=== PATIENT | male | born 1940 | race Caucasian/White ===

== ENCOUNTER 2022-08-01 15:43 | Emergency (ER) | payer MEDICARE, SELFPAY ==
--- NOTE | ~2022-08-01 | CT_ITS ---
EXAMINATION: CT brain wo con DATE: 08/01/2022 17:12 INDICATION: Head injury. TECHNIQUE: Computed tomography (CT) of the head was performed without intravenous contrast. The mA wa s adjusted according to patient size. Iterative reconstruction technique was employed. The dose-lengt h product was 605.33 mGy-cm. COMPARISON: None FINDINGS: There is no intracranial hemorrhage, acute infarction, or abnormal intracranial mass lesion . The ventricles are normal in size. There are likely changes of left ocular lens replacement surgery . There is mild mucosal thickening in the paranasal sinuses. The mastoid air cells are normal. There is a lipoma in left frontal lateral scalp. IMPRESSION: 1. Normal brain. Reviewed, dictated and finalized at location A. IMPRESSION: 1. Normal brain.
--- NOTE | ~2022-08-01 | CT_ITS ---
EXAMINATION: CT cervical spine wo con DATE: 08/01/2022 17:12 INDICATION: Head injury. TECHNIQUE: Computed tomography (CT) of the cervical spine was performed without intravenous contrast. Automated exposure control and iterative reconstruction technique were employed. The dose-length pro duct was 453.51 mGy-cm. COMPARISON: None FINDINGS: There is 3 degrees dextrocurvature of cervical spine. Vertebral body heights are normal. Th ere is moderately decreased disc height at C3-C4, C4-C5, and C5-C6 and severely decreased disc height at C6-C7. The following disc levels are specifically discussed: C2-C3: There is mild bilateral uncovertebral joint osteoarthritis. There is severe bilateral facet jacqueline int osteoarthritis. There is mild bilateral neural foraminal stenosis. There is no central canal sten osis. C3-C4: There is severe bilateral uncovertebral joint osteoarthritis. There is severe right and modera te left facet joint osteoarthritis. There is mild bilateral neural foraminal stenosis. There is mild central canal stenosis. C4-C5: There is mild right and severe left uncovertebral joint osteoarthritis. There is severe bilate ral facet joint osteoarthritis. There is mild right and moderate left neural foraminal stenosis. Ther e is mild central canal stenosis. C5-C6: There is moderate right and severe left uncovertebral joint osteoarthritis. There is moderate bilateral facet joint osteoarthritis. There is mild left neural foraminal stenosis. There is mild brii tral canal stenosis. C6-C7: There is severe bilateral uncovertebral joint osteoarthritis. There is mild bilateral facet jacqueline int osteoarthritis. There is mild bilateral neural foraminal stenosis. There is mild central canal st enosis. C7-T1: There is no uncovertebral joint osteoarthritis. There is moderate right and severe left facet joint osteoarthritis. There is mild bilateral neural foraminal stenosis. There is no central canal st enosis. IMPRESSION: 1. No fracture. 2. Severe cervical spondylosis. Reviewed, dictated and finalized at location A.
--- NOTE | ~2022-08-01 | XR_ITS ---
EXAMINATION: XR shoulder LT min 2V INDICATION: Left shoulder pain TECHNIQUE: Four views of the left shoulder are submitted. COMPARISON: 01/22/2014 FINDINGS: There is a questionable subtle lucency and cortical defect of the coracoid process Glenohum eral and acromioclavicular joint spaces are normal. Soft tissues are unremarkable. A subtle oval luce ncy with sclerotic margin along the lateral body of the scapula has a stable appearance since 2013, c onsistent with a benign finding. IMPRESSION: 1. Possible nondisplaced fracture of the coracoid process. Reviewed, dictated and finalized at location B.
[2022-08-01 15:59] VITALS: BP 127/67; PULSE 66; RESP 17; TEMP 36.5; O2SAT 99
--- NOTE | 2022-08-01 16:49 | ED.FALL ---
HPI - Fall General Chief Complaint: Fall Stated Complaint: fall Time Seen by Provider: 08/01/22 16:02 History of Present Illness HPI Narrative: 82-year-old male presents to the emergency room for evaluation of injury sustained in a fall earlier today. Patient states that he was on a stepladder attempting to remove ceiling tiles, when he stepped backward missing a step and striking his shoulder on the ground. Patient also states that he bumped his head. Denies any LOC or altered mental status. States the majority of his pain is to his left scapula, he is able to move his shoulder without difficulty. Related Data Allergies Allergy/AdvReac Type Severity Reaction Status Date / Time No Known Allergies Allergy Unknown Unverified 01/22/14 13:13 Review of Systems Review of Systems: CONSTITUTIONAL: Denies fever, chills, or sweats. EYES: Denies visual changes, redness, or discharge. ENT: Denies rhinorrhea, congestion, sore throat, or otalgia. CARDIOVASCULAR: Denies chest pain, palpitations, or edema. RESPIRATORY: Denies cough or dyspnea. GASTROINTESTINAL: Denies abdominal pain, nausea, vomiting, or diarrhea. GENITOURINARY: Denies dysuria or hematuria. SKIN: Denies rash or itching. MUSCULOSKELETAL: Reports left shoulder pain NEUROLOGIC: Denies headache, numbness, dizziness, or weakness. PSYCHIATRIC: Denies anxiety or depression. Exam Narrative: GENERAL: Well-appearing, well-nourished, no physical limitations, and in no acute distress. HEAD: Normocephalic, atraumatic. EYES: Conjunctivae normal, PERRLA and EOMI. CHEST: Clear to auscultation. No respiratory distress. No wheezes rales or rhonchi. HEART: Regular rate and rhythm. No murmur heard. Normal peripheral pulses. EXTREMITIES: Left shoulder: Point tenderness to the left scapula. Full range of motion in all lackey of movement, no bony abnormality, no swelling, no ecchymosis, neurovascular is intact distally SKIN: Warm, dry, no rash. No noted wounds NEURO: No focal deficits. Alert and oriented x3. MAEW. CN's II-XI intact bilaterally, normal gait PSYCH: Cooperative. Normal mood and affect. Course Vital Signs Vital signs: Vital Signs Temperature 36.5 C 08/01/22 15:59 Pulse Rate 66 08/01/22 15:59 Respiratory Rate 17 08/01/22 15:59 Blood Pressure 127/67 08/01/22 15:59 Pulse Oximetry 99 08/01/22 15:59 Oxygen Delivery Room Air 08/01/22 15:59 Temperature 36.5 C 08/01/22 15:59 Pulse Rate 66 08/01/22 15:59 Respiratory Rate 17 08/01/22 15:59 Blood Pressure 127/67 08/01/22 15:59 Pulse Oximetry 99 08/01/22 15:59 Oxygen Delivery Room Air 08/01/22 15:59 MDM - Fall Imaging Data Radiologist's impression: Impressions Head CT 08/01/22 17:13 IMPRESSION: 1. Normal brain. Cervical Spine CT 08/01/22 17:17 IMPRESSION: 1. No fracture. 2. Severe cervical spondylosis. Shoulder X-Ray 08/01/22 17:25 IMPRESSION: 1. Possible nondisplaced fracture of the coracoid process. Discharge Plan Discharge Clinical Impression: Fall, Head injury, Closed coracoid process fracture Patient Disposition: Home, Self-Care Condition: Stable Instructions: Antibiotic Form, Scapular Fracture (ED) Additional Instructions: May take Tylenol and ibuprofen as needed for pain. Wear sling for comfort. Follow-up with orthopedics in 10 to 14 days. Follow-up/Referrals: Stu Skinner MD [Physician] - PHYSICIAN NOT ON STAFF,NONSTAFF [Primary Care Provider] - Time of Disposition: 17:43
== END 2022-08-01 18:00 | disposition home or self-care (01) ==
PROVIDERS: Emergency Provider Nurse Practitioner Family
DX: S42.135A Nondisplaced fracture of coracoid process, left shoulder, initial encounter for closed fracture (principal); S09.90XA Unspecified injury of head, initial encounter; M47.812 Spondylosis without myelopathy or radiculopathy, cervical region; W11.XXXA Fall on and from ladder, initial encounter
CPT/HCPCS: 70450; 72125; 73030; 99284; A4565

== ENCOUNTER 2023-06-02 12:43 | Emergency (ER) | payer MEDICARE, SELFPAY ==
[2023-06-02] VITALS (20 sets, daily range): BP systolic 102–139; BP diastolic 55–66; PULSE 53–76; RESP 12–23; TEMP 36.7; O2SAT 97–100
--- NOTE | ~2023-06-02 | XR_ITS ---
EXAMINATION: XR chest 2V DATE: 06/02/2023 14:14 INDICATION: Transient alteration of awareness TECHNIQUE: AP and lateral views of the chest are obtained. COMPARISON: 01/22/2014 FINDINGS: The lungs are free of acute opacities. No pleural effusion or pneumothorax. The cardiomedia stinal silhouette is normal. There is mild thoracic spondylosis. Multiple healed right-sided rib frac tures are noted. 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 IMPRESSION: 1. No acute cardiopulmonary abnormality. Reviewed, dictated and finalized at location A.
--- NOTE | 2023-06-02 12:59 | ED.GENADULT ---
HPI - General Adult General Chief complaint: Syncope Stated complaint: near syncopy Time Seen by Provider: 06/02/23 12:51 History of Present Illness HPI narrative: Patient is an 83-year-old male who presents ER with near syncope. It occurred 2 times. The first time he had gone outside for about an hour and a half to set up the items he required to paint and outdoor [place]. While he was outside his was up on the ladder and he was holding it when he began to feel lightheaded. He then told her they needed to go inside and became lightheaded and laid himself down towards the ground. Paramedics were called but he refused. He then got up and went inside. He is feeling improved. He then drink some water and developed lightheadedness again and had some slight discomfort in his chest. He then had near syncope again. He did have some jerking in his right arm and some slurred speech but did not lose consciousness. He feels well at this time. Patient has history of coronary disease but no continued chest discomfort. He had no racing heart or slow heart rate. Poor p.o. intake today. Related Data Allergies Allergy/AdvReac Type Severity Reaction Status Date / Time No Known Allergies Allergy Unknown Unverified 06/02/23 12:53 Review of Systems Review of Systems: All systems reviewed & are unremarkable except as noted in HPI and below Constitutional: Constitutional: Reports chills, Reports fatigue and Denies fever(s) ENT: Denies nasal congestion and Denies sore throat Cardiovascular: Cardiovascular: Reports chest pain, Denies rapid heart rate, Denies radiating jaw, neck or arm pain and Denies slow heart rate Respiratory: Respiratory: Denies cough and Denies dyspnea Gastrointestinal: Gastrointestinal: Denies abdominal pain, Denies nausea and Denies vomiting Genitourinary: Genitourinary: Denies dysuria and Denies urinary frequency Neurologic: Reports syncope (Near), Denies headache(s), Denies focal weakness and Denies numbness PMFSH Past Medical History Medical History (Updated 06/02/23 @ 17:50 by Nehemias Deutsch MD) BPH (benign prostatic hyperplasia) Coronary artery disease Hyperlipidemia Hypertension Surgical History Surgical History (Updated 06/02/23 @ 17:50 by Nehemias Deutsch MD) History of percutaneous coronary intervention Exam Narrative: GENERAL: Well-appearing, well-nourished, and in no acute distress. HEAD: Normocephalic, atraumatic. ENT: Mucous membranes moist. NECK: Supple. CHEST: Clear to auscultation. No respiratory distress. HEART: Regular rate and rhythm. Normal peripheral pulses. ABDOMEN: Soft, nontender, nondistended. EXTREMITIES: Normal range of motion. No edema. SKIN: Warm, dry, no rash. NEURO: Alert and oriented x3. PSYCH: Normal mood and affect. Course Course Emergency Course: Patient resting comfortably. Troponin negative x2. Patient without orthostasis and up and ambulatory at baseline. His creatinine here is 1.7 and when checking his MyChart in the room he is at 1.5 on his most recent creatinine test last week. Encouraged avoidance of excessive heat and to increase hydration. Patient and verbalized understanding. Vital Signs Vital signs: Vital Signs Temperature 98.0 F 06/02/23 12:43 Pulse Rate 64 06/02/23 12:43 Respiratory Rate 20 06/02/23 12:43 Blood Pressure 112/66 06/02/23 12:43 Pulse Oximetry 98 06/02/23 12:43 Oxygen Delivery Room Air 06/02/23 12:43 Temperature 98.0 F 06/02/23 12:43 Pulse Rate 76 06/02/23 17:25 Respiratory Rate 13 06/02/23 16:01 Blood Pressure 112/65 06/02/23 17:25 Pulse Oximetry 98 06/02/23 16:01 Oxygen Delivery Room Air 06/02/23 12:51 Medical Decision Making Vital Signs Vital Signs: Vital Signs Temperature 98.0 F 06/02/23 12:43 Pulse Rate 64 06/02/23 12:43 Respiratory Rate 20 06/02/23 12:43 Blood Pressure 112/66 06/02/23 12:43 Pulse Oximetry 98 06/02/23 12:43
--- NOTE | 2023-06-02 13:07 | ECG_ITS ---
Measurements Intervals [place] Rate: 62 P: 37 WY: 193 QRS: 36 QRSD: 141 T: 49 QT: 434 QTc: 441 Interpretive Statements SINUS RHYTHM RIGHT BUNDLE BRANCH BLOCK [120+ ms QRS DURATION, UPRIGHT V1, 40+ ms S IN I/aVL/V4/V5/V6] NO PREVIOUS ECG AVAILABLE FOR COMPARISON Electronically Signed On 06-03-2023 11:08:46 CDT by George Cook M.D.
[2023-06-02] MEDS: SODIUM CHLORIDE 0.9% IV 1,000 ML 999 ML IV CONT (13:19)
[2023-06-02 13:33] LABS: Basophils Absolute Auto 0.1 K/mm3 (0.0-0.1); Basophils Percent Auto 0.6 % (0.2-1.2); Eosinophils Absolute Auto 0.4 K/mm3 (0-0.3); Eosinophils Percent Auto 5.6 % (0-4.4); Hematocrit 38.1 % (42.0-52.0); Hemoglobin 12.6 g/dL (14.0-18.0); Immature Granulocyte Absolute 0.02 K/mm3 (0.00-0.031); Immature Granulocyte Percent A 0.3 % (0-0.5); Immature Platelet Fraction Pct 7.3 % (0.9-11.2); Lymphocytes Absolute Auto 0.76 K/mm3 (0.9-3.2); Lymphocytes Percent Auto 9.8 % (18.3-44.2); Mean Corpuscular HGB Conc 33.1 g/dl (32-36); Mean Corpuscular Hemoglobin 33.2 pg (26-34); Mean Corpuscular Volume 100.3 fl (80-100); Mean Platelet Volume 11.8 fl (7.4-10.4); Monocytes Absolute Auto 0.6 K/mm3 (0.1-0.6); Monocytes Percent Auto 7.2 % (2.6-8.5); Neutrophils Absolute Auto 5.9 K/mm3 (1.3-6.7); Neutrophils Percent Auto 76.5 % (45.5-73.1); Platelet Count Result 126 k/mm3 (150-375); Red Cell Distribution Width 12.6 % (11.5-14.5); White Blood Count 7.7 K/mm3 (4.5-10.0)
[2023-06-02 13:39] LABS: INR 1.1; Prothrombin Time 15.2 Seconds (11.1-14.7)
[2023-06-02 13:40] LABS: Partial Thromboplastin Time 29.6 SECONDS (22.3-36.8)
[2023-06-02 13:42] LABS: Alanine Aminotransferase 27 U/L (6-50); Albumin Level 3.8 g/dL (3.5-5.1); Alkaline Phosphatase 49 U/L (38-126); Anion Gap 6 mmol/L (8-16); Aspartate Amino Transferase 30 U/L (17-59); Bilirubin,Total 1.3 mg/dL (0.2-1.3); Blood Urea Nitrogen 38 mg/dL (9-20); Calcium 9.1 mg/dL (8.4-10.2); Carbon Dioxide 25 mmol/L (22-30); Chloride 105 mmol/L (98-107); Estimated CRCL calculation 32 ml/min; Estimated Glomerular Filt Rate 39; Glucose 123 mg/dL (65-110); Potassium 4.3 mmol/L (3.4-5.0); Sodium 136 mmol/L (137-145)
[2023-06-02 13:54] LABS: Troponin I < 0.012 ng/mL (0.000-0.034)
[2023-06-02 16:58] LABS: Troponin I < 0.012 ng/mL (0.000-0.034)
== END 2023-06-02 18:00 | disposition home or self-care (01) ==
PROVIDERS: Emergency Provider Emergency Medicine
DX: T67.5XXA Heat exhaustion, unspecified, initial encounter (principal); R55 Syncope and collapse; I25.10 Atherosclerotic heart disease of native coronary artery without angina pectoris; I10 Essential (primary) hypertension; E78.5 Hyperlipidemia, unspecified; N40.0 Benign prostatic hyperplasia without lower urinary tract symptoms; X30.XXXA Exposure to excessive natural heat, initial encounter
CPT/HCPCS: 36415; 71046; 80053; 84484; 85025; 85055; 85610; 85730; 93005; 96360; 99284; J7030

== ENCOUNTER 2025-03-05 16:34 | Inpatient (IN) | payer MEDICARE, SELFPAY ==
[2025-03-05] VITALS (7 sets, daily range): BP systolic 111–134; BP diastolic 53–77; PULSE 71–89; RESP 16–18; TEMP 36.4–36.5; O2SAT 95–99; BMI 25.2
--- NOTE | ~2025-03-05 | XR_ITS ---
HISTORY: Pain/swelling TWIST FALL INJ X 1 DAY RIGHT LAT MALLEOLAR COMPARISON: None TECHNIQUE: 3 views of the right ankle were performed FINDINGS: No acute fracture or dislocation. Findings suggesting prior fracture deformity within the distal shaft of the right fibula for which cl inical correlation is needed. Lateral soft tissue swelling is noted. The ankle mortise is preserved. Bone mineralization is age-appropriate. IMPRESSION: Findings suggesting prior fracture deformity within the distal shaft of the right fibula for which clinical correlation is needed. No acute fracture deformity is identified. Reviewed, dictated and finalized at location A. IMPRESSION: Findings suggesting prior fracture deformity within the distal sha ft of the right fibula for which clinical correlation is needed. No acute fracture deformity is identified.
--- NOTE | ~2025-03-05 | CT_ITS ---
CT brain wo con Ordering provider: Isael Celeste MD History: 85 years Male with . head injury . Comparison: August 01, 2022 Technique: CT of the head without contrast. Radiation reduction technique utilized.The dose-length pr oduct was 605.33 mGy-cm. FINDINGS: BRAIN PARENCHYMA AND CSF SPACES: Mild leukoaraiosis and diffuse cortical atrophy. Mild atheromatous d isease. No midline shift, mass effect or hemorrhage. The brain parenchyma and CSF spaces are otherwi se normal. VISUALIZED PARANASAL SINUSES: Bilateral maxillary sinus disease is. Bilateral ethmoid sinus disease. Otherwise, Well aerated. MASTOIDS: Well aerated. BONES: The bones appear intact. SOFT TISSUES: Visualized nasopharynx is normal. Superficial soft tissues are normal. IMPRESSION: No acute intracranial findings. Reviewed, dictated and finalized at location A.
--- NOTE | ~2025-03-05 | XR_ITS ---
XR chest 1V portable Ordering provider: Isael Celeste MD History: 85 years Male with . syncope . Comparison: June 06, 2023 FINDINGS: MEDIASTINUM: The cardiac silhouette is not enlarged. LUNGS: No effusions or pneumothorax. Bibasilar opacification more on the right side suggestive of pneumonia versus atelectasis. Calcified granuloma in the left upper lobe unchanged. OTHER: No free air under the diaphragm. Degenerative spine. IMPRESSION: Bibasilar atelectasis versus pneumonia. Reviewed, dictated and finalized at location A.
--- OUTSIDE RECORDS SUMMARY | 2025-03-05 16:41 | XMS_ITS | Encounter Summary ---
Author Organization [facility] Healthcare Address [address] [place] [address] Care Team Providers Care Chain Testing Machine Operator Name Role Phone River Serrano MD Primary Care Provider [phone] Nehemias Carrillo MD Unavailable Kim Duong OT Unavailable Kayla Dye MD Unavailable [phone] Zaid Manjarrez MD PhD Unavailable [phone] Cheri Babin Unavailable [phone] Jaqueline Blake MD Unavailable Bandar Ugarte MD Unavailable [phone] Kerrie Reyna MD Unavailable [phone] Santa Saleem NP Unavailable [phone] Reason for Referral * Cardiology (Routine) - Authorized Specialty Diagnoses / Procedures Referred By Contac t Referred To Contact Diagnoses Shortness of breath Chronic coronary artery disease Procedures Transthoracic Echo (TTE) Complete W Doppler/CF Nehemias Carrillo MD [address] [address] Phone: tel: fax: [address] [phone] Referral ID Status Reason Start Date Expiration Date V isits Requested Visits Authorized [id number] Authorized 02/25/2025 03/27/2026 1 1 Reason for Visit * Reason Onset Date Comments Test Results 02/23/2025 Encounter Details Date Type Department Care Team (Late st Contact Info) Description 02/23/2025 Results Follow-Up Cardiology Nehemias Carrillo MD [address] [place] [id number] Pro B-type natriuretic peptide Social History Tobacco Use Types Packs/Day Years Used Date Smoking Tobacco: Never Smokeless Tobacco: Never Alcohol Use Standard Drinks/Week Comments Yes 3 (1 standard drink = 0.6 oz pur e alcohol) AUDIT-C Answer Date Recorded Q1: How often do you have a drink containing alc ohol? 2-4 times a month 02/08/2025 Q2: How many drinks containi ng alcohol do you have on a typical day when you are drinking? 1 or 2 02/08/2025 Q3: How often do you have si x or more drinks on one occasion? Never 02/08/2025 PHQ-2 Answer Date Recorded PHQ-2 Total Score (If total score is 3 or more points, staff should administer the PHQ-9) 0 08/10/2024 Personal Safety Answer Date Recorded Have you ever been in or are you currently in a harmful physical or emotional relationship or is someone making you feel afraid or unsafe? 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 Order placed for echo Will have scheduling arrange. 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) documented as of this encounter Visit Diagnoses Diagnosis Shortness of breath- Primary Chronic coronary artery disease Coronary atherosclerosis of unspecified type of vessel, [place] or graft documented in this encounter Care Teams Chain Testing Machine Operator Relationship Specialty Start Date End Date River Serrano MD [address] [place], [place] [address]MALISSA HUI [address] [place] [address] PCP - General 05/09/17 Nehemias Carrillo MD [address] [place], [place] [address]MALISSA UHI [address] [place] [address] Referring Physician Cardiology 05/06/18 Kim Duong, OT [address] [place], [place] [address]MALISSA HUI [address] [place] [address] Occupational Therapist Occupational Therapy 03/19/19 Kayla Dye MD [address] [place], [place] [address]MALISSA HUI [address] [place] [address] Surgeon Ophthalmology 05/14/19 Zaid Manjarrez MD PhD [address] [place] [address] Consulting Physician Neurology 01/06/21 Cheri Babin PA [address] [place] [address] Physician Adult Care Manager Urology 07/19/21 Jaqueline Blake MD [address] [place] [address] [address] [place] [address] Medical Oncologist/Dressed Poultry Grader Medical Oncology 10/17/23 Bandar Ugarte MD [address] [facility] DEPT RADIATION ONCOLOGY, [place] [address] Radiation Oncologist Radiation Oncology 08/12/24 Kerrie Reyna MD [address] DIV IM DERMATOLOGY, [facility] [address] [place] [address] Main Line Assembler Dermatology 08/17/24 Santa Saleem NP [address] [facility] [address] [place] [address] Nurse Practitioner Nurse Practitioner 09/01/24 documented as of this encounter
--- OUTSIDE RECORDS SUMMARY | 2025-03-05 16:41 | XMS_ITS | Patient Health Record ---
Author Organization [facility] Address [address] [facility] [address] [place] [address] Care Team Providers Care Telegraph Office Telephone Clerk Name Role Phone Zach ARMAS, River Primary Care Provider Chanda BHATTI MD, JASON Unavailable Reason For Referral No Information Problems Problem Type SNOMED Code ICD Code Onset Dates Problem Status W/U Status Risk Notes Problem Personal history of colonic polyps (Z86.010) Active confirmed Plan Of Treatment Pending Test Test Name Order Date Colonoscopy 04/02/2021 Insurance Providers Payer Name Payer Address Payer Phone Subscriber Number Group Number Insured Name Patient Relationship to Insured Coverage Start Date Coverage End Date [place] [address] [address] [place], [place] [id number] Reid Serna Self - patient is the insured [employer] [address] [place] [address] [id number] Reid Serna Self - patient is the insured
--- OUTSIDE RECORDS SUMMARY | 2025-03-05 16:41 | XMS_ITS | Referral Summary ---
Author Organization [facility] Address [address] [place] [address] Care Team Providers Care Donation Worker Name Role Phone River Serrano MD Primary Care Provider [phone] Nehemias Carrillo MD Unavailable [phone] Kim Duong OT Unavailable Kayla Dye MD Unavailable [phone] Zaid Manjarrez MD PhD Unavailable Cheri Babin Unavailable [phone] Jaqueline Blake MD Unavailable [phone] Bandar Ugarte MD Unavailable Kerrie Reyna MD Unavailable [phone] Santa Saleem MANAGEMENT SERVICES TECHNICIAN Unavailable Encounters Date Type Department Care Team Description 5 Results Follow-Up Cardiology Nehemias Carrillo MD Pro B-type natriuretic peptide 5 11:00 AM CDT Office Visit [facility] Radiation Oncology [address] [place] [address] Santa Saleem, ASHLEY Prostate cancer (HCC) (Primary Dx); Encounter for follow-up surveillance of prostate cancer; Encounter for monitoring androgen deprivation therapy; Decreased strength; Balance problem 5 1:40 PM CDT Lab [facility] [address] [place] [address] Shortness of breath 5 1:00 PM CDT Office Visit [facility] Cardiology [address] [facility] Medical Office Building [address] [place] [address] Nehemias Carrillo MD Chronic coronary artery disease (Primary Dx); Shortness of breath; Essential hypertension 5 Documentation [facility] Oncology [address] [facility] Floor 6 [place] [id number] Ayaan Dorantes MD 5 10:00 AM CDT Office Visit [address] [place] [id number] River Serrano MD Primary hypertension (Primary Dx); Stage 3b chronic kidney disease (HCC); Esophagitis 5 9:47 AM CDT Anesthesia Event [facility] [address] [address] Wandy Ureña MD McKinney, Kenya W., EDGE MOLDER 5 10:00 AM CDT - 5 10:30 AM CDT Surgery [facility] [place] [address] [address] [address] Rayo Estrella MD ESOPHAGOGASTRODUODENOSCOPY 5 9:03 AM CDT - 5 11:05 AM CDT Hospital Encounter [facility] [address] [address] Rayo Estrella MD Discharge Disposition: Discharge to home or self care 5 4:21 PM CDT - 5 11:59 PM CDT Hospital Encounter [facility] [address] [place] [address] Prostate CA (HCC) Discharge Disposition: Discharge to home or self care 5 10:[address] 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 Urology [address] [place] [address] Advanced Medicine 11th [place] [address] [place] [phone] Will Barkley NP Urgency of urination (Primary Dx); Benign prostatic hyperplasia with urinary obstruction; Prostate cancer (HCC); Nocturia; Urinary frequency 5 10:00 AM CDT Office Visit [facility] Ophthalmology [address] [place] [address] for Outpatient Health [address]th [place] [address] Gabi Segura MD PhD Macular pattern dystrophy (Primary Dx) 5 Telephone [facility] Oncology [facility] Floor 6 [place] [address] Lynette Ruelas 5 9:59 AM CDT - 5 11:59 PM CDT Hospital Encounter [facility] Pulmonary [address] [facility] [address] [place] [address] 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; Aspiration into respiratory tract, initial encounter Discharge Disposition: Discharge to home or self care 5 Documentation [facility] Oncology [facility] Floor 6 [place] [address] [place] 5 Documentation [facility] Oncology [address] [place] [address] Floor 6 [place] [address] [place], A Appointment 5 8:15 AM REGISTERED NURSES Lab [facility] - Lab Collection [address] [facility] Floor 6 [place] [address] 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 5 7:37 AM REGISTERED NURSES - 5 11:59 PM REGISTERED NURSES Hospital Encounter [facility] - [place] [address] [facility] Floor 8 [place] [address] 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 Discharge Disposition: Discharge to home or self care 5 10:30 AM REGISTERED NURSES Office Visit [facility] Oncology [facility] Floor [address] [place] [address] 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 (Primary Dx); Aspiration into respiratory tract, initial encounter 5 9:30 AM REGISTERED NURSES Lab [facility] Oncology Lab [address] [place] [address] Floor 6 [place] [address] 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 from Last 3 Months Allergies Active Allergy Reactions Criticality Noted Date Comments Adhesive Tape-Silicones Other (See comments) High 02/10/2014 Causes skin tears Medications aspirin 81 mg tablet take 1 tablet (81MG) by oral route every day 0 03/10/20 13 Active Lactobacillus acidophilus (PROBIOTIC ACIDOPHILUS ORAL)Indicatio ns:health Take 1 tablet by mouth daily before breakfast Active cholecalcifero l (VITAMIN D-3) 2,000 unit capsuleIndicat ions:Vitamin D Deficiency Take 1 capsule (2,000 Units total) by mouth daily before breakfast Active cetirizine (ZyrTEC) 10 mg tablet Take 1 tablet (10 mg total) by mouth as needed for allergies or rhinitis Active vit C,V-Ya-ctuby-l utein-zeaxan 250-90-40-1 mg capsuleIndicat ions:eye vitamin Take 1 capsule by mouth 2 (two) times a day Active calcium carbonate (CALCIUM 600 ORAL)Indicatio ns:supplement Take 1 tablet by mouth every morning Active trospium (SANCTURA) 20 mg tablet Take 1 tablet (20 mg total) by mouth 2 (two) times a day 60 tablet 11 02/11/20 24 Active Additional Information Patient not taking.Informant: Self, Reported on 2025 alfuzosin ER (UROXATRAL) 10 mg 24 hr tablet TAKE 1 TABLET(10 MG) BY MOUTH DAILY 90 tablet 3 03/15/20 24 Active Additional Information Patient not taking.Informant: Self, Reported on 2025 acyclovir (ZOVIRAX) 400 mg tabletIndicati ons:Chronic Suppression Take 1 tablet (400 mg total) by mouth 2 (two) times a day 180 tablet 3 03/31/20 24 025 Active Additional Information Patient not taking.Informant: Self, Reported on 2025 metoprolol XL (TOPROL-XL) 25 mg extended release tablet TAKE 1 TABLET(25 MG) BY MOUTH DAILY 90 tablet 3 05/12/20 24 Active isosorbide mononitrate ER (IMDUR) 30 mg 24 hr tablet TAKE 1 TABLET(30 MG) BY MOUTH DAILY 90 tablet 3 10/22/19 25 Active atorvastatin (LIPITOR) 40 mg tablet TAKE 1 TABLET(40 MG) BY MOUTH EVERY NIGHT 90 tablet 3 11/12/[address] (PROTONIX) 40 mg EC tablet Take 1 tablet (40 mg total) by mouth 2 (two) times a day 60 tablet 2 02/09/20 25 025 Active losartan (COZAAR) 50 mg tablet TAKE 1 TABLET(50 MG) BY MOUTH DAILY 90 tablet 3 02/29/20 25 Active fluticasone (FLONASE) 50 mcg/actuation nasal spray Administer 1 spray into each nostril daily as needed for rhinitis As Needed 025 Discontinued(T herapy completed) losartan (COZAAR) 50 mg tablet TAKE 1 TABLET(50 MG) BY MOUTH DAILY 90 tablet 2 05/26/20 24 025 Discontinued mirabegron ER (MYRBETRIQ) 50 mg tablet extended release 24 hr Take 1 tablet (50 mg total) by mouth daily 30 tablet 11 01/05/20 25 025 Discontinued(A lternate therapy) Active Problems Problem Noted Date Diagnosed Date Esophagitis 02/14/2025 Assessment & Plan (02/14/2025 10:03 AM CDT): DX on EGD 02/08/25, LA grade B. Plan per GI is to coitnue Pantoprazole 40mg BID for 3 months, then reduce to every day. Encounter for follow-up surveillance of prostate cancer 02/10/2025 Aspiration into respiratory tract 12/27/2024 Prostate cancer 06/11/2024 Cancer Staging:Clinical stage from 07/21/2024:Stage IIC(cT1c, cN0, cM0, PSA: 15, Grade Group: 3) - Signed by Santa Saleem NP on 08/12/2024 Assessment & Plan (08/17/2024 9:54 AM REGISTERED NURSES): Recent DX on biopsy 07/20/24. [place] 7 prostate cancer. Urology has referred him to [facility]. MRI prostate/pelvis 05/29/24: IMPRESSION: 1. A lesion in the left lateral peripheral zone at the mid gland is at very high suspicion for malignancy with an overall PI-RADS score of 5. No evidence of extraprostatic extension resulting in obstruction of both seminal vesicles. 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 He received his sixth cycle of treatment with single-agent Rituxan. He has completed 5 cycles of bendamustine with Rituxan. Bendamustine was discontinued for cycle 6 due to decreased creatinine clearance. Managed by [facility]. CT/PET 06/10/24: IMPRESSION: 1. Similar appearance of the left kidney with qualitatively resolved metabolic activity. Retroperitoneal, pelvic and inguinal lymph nodes now demonstrate activity similar to blood pool. 2. Unchanged hypermetabolic symmetric mediastinal and hilar lymph nodes, likely granulomatous process. 3. Hypermetabolic activity along the left peripheral zone of the prostate correlating to the PI-RADS 5 lesion on the recent MRI. Stage 3b chronic kidney disease 09/02/2023 Assessment & Plan (02/14/2025 9:50 AM CDT): CKD is unchanged. Regular aerobic exercise. Continue current medications. Renal condition will be reassessed in 6 months. Assessment & Plan (08/17/2024 9:41 AM REGISTERED NURSES): CKD is unchanged. Regular aerobic exercise. Continue current medications. Renal condition will be reassessed in 6 months. 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 No cystoid macular edema (CME) or hemorrhage. Follow up 6 months Continue AREDS2 Assessment & Plan (08/20/2022 11:01 AM REGISTERED NURSES): [facility] Showed how to do amsler grid. Call if changes. Assessment & Plan (10/16/2021 9:39 AM REGISTERED NURSES): Bilateral pigmentary changes with deposits more consistent with pattern dystrophy > macular degeneration. No cystoid macular edema (CME) or hemorrhage. 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 Assessment & Plan (07/22/2022 10:41 AM CDT): He saw Dr. Basurto on 09/19/21. I reviewed records and follow up notes. It is my understanding that he is not felt to have MGUS. Hematology flet there was no need for follow up with them. Assessment & Plan (07/19/2021 11:06 AM CDT): This is being ruled out by hematology. He had some free light chains in urine. He saw Dr. Basurto in 03/2021. She felt that he does not have monoclonal protein on serum or urine immunofixation and his free light chain ratio is normal. Small free kappa chains detected on urine immunofixation in January 2021 must have been secondary to chronic kidney disease. -Mr Ward does not qualify for a diagnosis of MGUS based on the lab evaluation today. She will re-evaluate him in 6 months. Age-related nuclear cataract of right eye 2019 Assessment & Plan (08/26/2023 10:57 AM REGISTERED NURSES): Not visually significant. Do not recommend surgery at this time. Continue to monitor. Patient to call if problems with activities of daily living. Assessment & Plan (08/20/2022 9:25 AM REGISTERED NURSES): Not visually significant. Do not recommend surgery at this time. Continue to monitor. Patient to call if problems with activities of daily living. Brochure offered/given. Assessment & Plan (08/14/2021 10:01 AM CDT): Not visually significant. Do not recommend surgery at this time. Continue to monitor. Patient to call if problems with activities of daily living. Brochure offered/given. Assessment & Plan (08/08/2020 4:01 PM CDT): Not visually significant. Do not recommend surgery at this time. Continue to monitor. Patient to call if problems with activities of daily living. Brochure offered/given. Pseudophakia, left eye 06/23/2018 Overview (07/28/2020): 07/27/2020- EXTRACTION CATARACT - PHACOEMULSIFICATION AND LENS IMPLANT - complex - left eye - Left Assessment & Plan (08/26/2023 9:52 AM REGISTERED NURSES): 07/27/2020- EXTRACTION CATARACT - PHACOEMULSIFICATION AND LENS IMPLANT - complex - left eye - Left Implants in good position. Vision stable PCO left eye (OS) not vis Assessment & Plan (08/20/2022 9:26 AM REGISTERED NURSES): 07/27/2020- EXTRACTION CATARACT - PHACOEMULSIFICATION AND LENS IMPLANT - complex - left eye - Left Implants in good position. Vision stable PCO left eye (OS) not vis Assessment & Plan (08/14/2021 11:33 AM CDT): 07/27/2020- EXTRACTION CATARACT - PHACOEMULSIFICATION AND LENS IMPLANT - complex - left eye - Left Implants in good position. Vision stable PCO left eye (OS) not vis Assessment & Plan (08/08/2020 2:47 PM CDT): Status-post EXTRACTION CATARACT - PHACOEMULSIFICATION AND LENS IMPLANT - complex - left eye - Left 07/27/2020 Best corrected vision is much improved and the patient is pleased with results. The eye is well-healed with no evidence of infection. Plan discontinue ocuflox and taper prednisione TID x 1 week, BID x 1 week , then (QD) x 1week, then discontinue . Call if any inflammation increases or other symptoms worsen or occur. Glasses prescription was offered/given for use as needed. The patient was instructed to contact us if any new concerns occur with this eye. Assessment & Plan (07/28/2020 7:41 AM CDT): Post op day 1s/p EXTRACTION CATARACT - PHACOEMULSIFICATION AND LENS IMPLANT - complex - left eye - Left 07/27/2020 No complaints; Doing well Use ofloxacin and prednisolone to operative eye QID Eye shield at bedtime, glasses or shield during the day PO instructions given RTC 1-2 weeks, earlier if any complaints or concerns Assessment & Plan (07/11/2020 3:54 PM CDT): Patient complains of significant symptoms and problems with activities of daily living due to visually significant disease. R/B/A of cataract surgery discussed with the patient including bleeding, infection, chronic inflammation, need for glasses and/or second surgery, loss of vision, loss of eye, and even very rarely, . Patient's questions were answered and wants to proceed with cataract extraction with intraocular lens implant. Pamphlet given and plans were made to schedule this elective surgery. Rec phaco/ intraocular lens (IOL) left eye (OS)- Aim plano standard. Note small cylinder but not candidate for toric since so small. Understands has retinal changes left eye (OS) that will be there after cataract surgery. Will be ok with reading and computer glasses. Assessment & Plan (07/06/2019 2:38 PM CDT): Not visually significant. Do not recommend surgery at this time. Continue to monitor. Patient to call if problems with activities of daily living. Brochure offered/given. Assessment & Plan (06/23/2018 2:30 PM CDT): Not visually significant. Do not recommend surgery at this time. Continue to monitor. Patient to call if problems with activities of daily living. Brochure offered/given. Early dry stage nonexudative age-related macular degeneration of both eyes 06/23/2018 Assessment & Plan (08/26/2023 9:51 AM REGISTERED NURSES): Noted sl decrease in BCVA left eye (OS) Suspect mac degen related, but no active disease No FHx Will start to involve retina in care; Call if changes in amsler grid Assessment & Plan (08/20/2022 9:25 AM REGISTERED NURSES): Noted sl decrease in BCVA left eye (OS) Suspect mac degen related, but no active disease No FHx Will start to involve retina in care; Call if changes in amsler grid Assessment & Plan (08/14/2021 11:40 AM CDT): Noted sl decrease in BCVA left eye (OS) Suspect mac degen related, but no active disease No x Will start to involve retina in care; Call if changes in amsler grid Assessment & Plan (07/11/2020 1:51 PM CDT): Dry macular degenerative changes noted but appears stable without any evidence of PED or CRNMV both eyes (OU). Dry chronic changes appear stable. Recommend checking Amsler grid regularly with each eye separately and contacting us if there are any significant changes. Recommend no smoking and discussed vitamin supplementation. Recommend regular follow up. Pamphlet offered. Assessment & Plan (07/06/2019 2:38 PM CDT): Dry macular degenerative changes noted but appears stable without any evidence of PED or CRNMV both eyes (OU). Dry chronic changes appear stable. Recommend checking Amsler grid regularly with each eye separately and contacting us if there are any significant changes. Recommend no smoking and discussed vitamin supplementation. Recommend regular follow up. Pamphlet offered. Assessment & Plan (06/23/2018 2:31 PM CDT): Dry macular degenerative changes noted but appears stable without any evidence of PED or CRNMV both eyes (OU). Dry chronic changes appear stable. Recommend checking Amsler grid regularly with each eye separately and contacting us if there are any significant changes. Recommend no smoking and discussed vitamin supplementation. Recommend regular follow up. Pamphlet offered. Dry eye syndrome of both eyes 06/23/2018 Assessment & Plan (08/26/2023 9:52 AM REGISTERED NURSES): Recommend increase lubricant eye drops to 4 times/day; consider preservative- free drops, especially if using drops more than that. Add hot compresses with lid scrubs to improve quality of tears. Assessment & Plan (07/11/2020 1:51 PM CDT): Recommend increase lubricant eye drops to 4 times/day; consider preservative- free drops, especially if using drops more than that. Add hot compresses with lid scrubs to improve quality of tears. Assessment & Plan (07/06/2019 2:38 PM CDT): Recommend increase lubricant eye drops to 4 times/day; consider preservative- free drops, especially if using drops more than that. Add hot compresses with lid scrubs to improve quality of tears. Assessment & Plan (06/23/2018 2:31 PM CDT): Recommend increase lubricant eye drops to 4 times/day; consider preservative- free drops, especially if using drops more than that. Add hot compresses with lid scrubs to improve quality of tears. Hypertension 11/27/2017 Assessment & Plan (02/14/2025 10:04 AM CDT): Hypertension is stable Continue current treatment regimen. Regular aerobic exercise. Continue current medications. Blood pressure will be reassessed at the next regular appointment. Assessment & Plan (08/17/2024 9:40 AM REGISTERED NURSES): Hypertension is stable Continue current treatment regimen. Regular aerobic exercise. Continue current medications. Blood pressure will be reassessed at the next regular appointment. Assessment & Plan (08/12/2023 1:23 PM CDT): Hypertension is stable Continue current treatment regimen. Regular aerobic exercise. Continue current medications. Blood pressure will be reassessed at the next regular appointment. Assessment & Plan (07/22/2022 10:36 AM CDT): Hypertension is stable Continue current treatment regimen. Regular aerobic exercise. Continue current medications. Blood pressure will be reassessed at the next regular appointment. Assessment & Plan (07/19/2021 10:53 AM CDT): Hypertension is stable Continue current treatment regimen. Regular aerobic exercise. Continue current medications. Blood pressure will be reassessed at the next regular appointment. Assessment & Plan (07/18/2020 11:45 AM CDT): Hypertension is stable Continue current treatment regimen. Regular aerobic exercise. Continue current medications. Blood pressure will be reassessed at the next regular appointment. Assessment & Plan (05/14/2019 9:23 AM CDT): Hypertension is controlled. Continue current treatment regimen. Regular aerobic exercise. Continue current medications. Blood pressure will be reassessed at the next regular appointment. Assessment & Plan (02/16/2019 12:36 PM CDT): Hypertension is controlled off lisinopril. Continue current treatment regimen. Regular aerobic exercise. Continue current medications. Ambulatory blood pressure monitoring. Blood pressure will be reassessed at the next regular appointment. Continue to monitor off the ACEI. Assessment & Plan (11/17/2018 9:49 AM REGISTERED NURSES): Hypertension is over controlled. Regular aerobic exercise. Medication changes per orders. Ambulatory blood pressure monitoring. Decrease lisinopril to 20 mg QD Blood pressure will be reassessed in 3 months. Assessment & Plan (05/12/2018 9:59 AM CDT): Controlled. Continue current regimen. HSV-1 (herpes simplex virus 1) infection 017 Seasonal allergic rhinitis 05/07/2016 Hyperlipidemia 11/07/2015 Overview (05/12/2018): Assessment & Plan (08/17/2024 9:40 AM REGISTERED NURSES): I discussed ASCVD risk. I spent 15 minutes counseling on CV risk reduction. Our discussion included the followin. Healthy eating habits, including low carbohydrate diet, low starch vegetables. 2. Regular aerobic exercise plan, which can include walking, jogging, treadmill, rowing, swimming biking. I recommend targeting the equivalent of 10K steps daily most days of the week. 3. Optimize BP control. Continue current regimen. Assessment & Plan (08/12/2023 1:22 PM CDT): I discussed ASCVD risk. I spent 15 minutes counseling on CV risk reduction. Our discussion included the followin. Healthy eating habits, including low carbohydrate diet, low starch vegetables. 2. Regular aerobic exercise plan, which can include walking, jogging, treadmill, rowing, swimming biking. I recommend targeting the equivalent of 10K steps daily most days of the week. 3. Optimize BP control. Continue current regimen. Assessment & Plan (07/22/2022 10:35 AM CDT): I discussed ASCVD risk. I spent 15 minutes counseling on CV risk reduction. Our discussion included the followin. Healthy eating habits, including low carbohydrate diet, low starch vegetables. 2. Regular aerobic exercise plan, which can include walking, jogging, treadmill, rowing, swimming biking. I recommend targeting the equivalent of 10K steps daily most days of the week. 3. Optimize BP control. Continue current regimen. Assessment & Plan (07/19/2021 10:53 AM CDT): I spent 15 minutes counseling her on CV risk reduction. Our discussion included the followin. Healthy eating habits, including low carbohydrate diet, low starch vegetables. We discussed intermittent fasting and paleo diets. 2. Regular aerobic exercise plan, which can include walking, jogging, treadmill, rowing, swimming biking. I recommend targeting the equivalent of 20K steps daily most days of the week. 3. Optimize BP control. Continue current regimen. Assessment & Plan (07/18/2020 11:21 AM CDT): I spent 15 minutes counseling her on CV risk reduction. Our discussion included the followin. Healthy eating habits, including low carbohydrate diet, low starch vegetables. We discussed intermittent fasting and paleo diets. 2. Regular aerobic exercise plan, which can include walking, jogging, treadmill, rowing, swimming biking. I recommend targeting the equivalent of 20K steps daily most days of the week. 3. Optimize BP control. 4. Assessment of ASCVD risk and recommendations how to mitigate this risk.discussion was consistent with the 5 A s approach. Continue current regimen. Assessment & Plan (05/14/2019 9:23 AM CDT): I spent 15 minutes counseling her on CV risk reduction. Our discussion included the followin. Healthy eating habits, including low carbohydrate diet, low starch vegetables. We discussed intermittent fasting and paleo diets. 2. Regular aerobic exercise plan, which can include walking, jogging, treadmill, rowing, swimming biking. I recommend targeting the equivalent of 20K steps daily most days of the week. 3. Optimize BP control. 4. Taking aspirin. 5. Assessment of ASCVD risk and recommendations how to mitigate this risk.discussion was consistent with the 5 A s approach. Continue current regimen. Assessment & Plan (05/12/2018 10:00 AM CDT): Continue current regimen. Counseled on exercise, diet. I spent 15 minutes counseling her on CV risk reduction. Our discussion included the followin. Healthy eating habits, including low carbohydrate diet, low starch vegetables. We discussed intermittent fasting and paleo diets. 2. Regular aerobic exercise plan, which can include walking, jogging, treadmill, rowing, swimming biking. I recommend targeting the equivalent of 20K steps daily most days of the week. 3. Optimize BP control. 4. Taking aspirin. 5. Assessment of ASCVD risk and recommendations how to mitigate this risk.discussion was consistent with the 5 A s approach. Benign prostatic hyperplasia with urinary obstru ction 11/07/2015 Overview (05/12/2018): Assessment & Plan (07/18/2020 11:49 AM CDT): Fair control. Continue current regimen. Assessment & Plan (05/12/2018 10:13 AM CDT): Moderate. Priogressively worsening. No improvement [place] BPH with medication. We discussed options. [place] of medication for overactive bladder. Refer to . Essential tremor 02/26/2014 Assessment & Plan (05/21/2024 3:33 PM CDT): He has a >15 year history of asymmetric onset, minimally progressive, bilateral hand kinetic tremor that does not significantly interfere with his activities with a positive family history, but without any clear benefits with alcohol. This is consistent with essential tremor. Given it does not interfere with his activities, no pharmacologic therapies for his tremor is warranted at this time. If treatment is considered, we discussed the first step would be to discuss with his materials inspector and consider switching the metoprolol to propranolol. 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 He does not meet the diagnostic criteria of idiopathic PD at this time; he has not had significant objective progression since the last visit. Of note, mild bradykinesia can often be seen in the setting of ET; we also discussed the mildly higher risk of PD in the ET population. I would maintain a low threshold for a trial of levodopa with any further worsening of his symptoms; his parkinsonism is still relatively mild however and not outside the realm of what can be seen in the setting of ET. His gait disturbance is likely multifactorial; he has very mild predominantly truncal ataxia, very mild neuropathy and parkinsonism that could be contributing to his gait imbalance. MSA-C, appears unlikely given the lack of prominent early autonomic symptoms and lack of objective progression of his parkinsonism. SCA appears less likely given the lack of significant burden of cerebellar symptoms. The other consideration would be FXTAS given the presence of tremor, mild ataxia, neuropathy, cognitive disturbance; he has never had a genetic testing and it would not necessarily slip box changer. He has mild gait imbalance and would benefit from PT, will refer. His prior MRI Brain: notable for mild-moderate generalized atrophy and subtle midline cerebellar atrophy, otherwise unremarkable and MRI C-spine was notable for mild C4-5>C5-6 degenerative changes, no cord impingement/signal changes; MRI s were otherwise unremarkable. Prior EMG/NCS consistent with very mild polyneuropathy as clinically suspected. Reversible labs unremarkable except for borderline elevated HbA1C and urine immunofixation: small free kappa light chain monoclonal protein, that is being followed by PMD. He has anxiety, irritability and some depressive symptoms. He briefly tried escitalopram in the past but could not tolerate it due to fatigue. He is not interested in trying an alternate agent at this time; will clinically monitor for now. Recommendations: 1. No pharmacologic treatment for tremor warranted at this time; may consider switching from metoprolol to propranolol with further progression warranting treatment. 2. Monitor parkinsonism for now. 3. Consider another SSRI given prior side effects with escitalopram with any further worsening of his anxiety, irritability and depressive symptoms. 4. Refer to PT. 5. continue daily exercises and stretching. I have established and will maintain a relationship with this patient to longitudinally manage their chronic neurological movement disorders. My total encounter time on 05/18/2024 was 33 minutes (face to face encounter: 2:24 PM - 2:52 PM), which was spent in the activities documented in the note. This includes time spent prior to the visit and after the visit in direct care of the patient. This time does not include any separately reportable services. Assessment & Plan (08/12/2023 1:24 PM CDT): Mild. Stable. Currently not taking any medication. Assessment & Plan (05/14/2023 1:17 PM CDT): He has a 15 year history of asymmetric onset, minimally progressive, bilateral hand kinetic tremor that does not significantly interfere with his activities with a positive family history, but without any clear benefits with alcohol. This is consistent with essential tremor. Given it does not interfere with his activities, no pharmacologic therapies for his tremor is warranted at this time. 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 He does not meet the diagnostic criteria of idiopathic PD at this time and there has been only subtle objective progression in the interim. Of note, mild bradykinesia can often be seen in the setting of ET; we also discussed the mildly higher risk of PD in the ET population. He has had more subjective complaints consistent with parkinsonism and I would maintain a low threshold for a trial of levodopa with any further worsening of his symptoms; his parkinsonism is still relatively mild however and not outside the realm of what can be seen in the setting of ET. His gait disturbance is likely multifactorial; he has very mild predominantly truncal ataxia, very mild neuropathy and parkinsonism that could be contributing to his gait imbalance. MSA-C, appears much less likely given the lack of prominent early autonomic symptoms and lack of objective progression of his parkinsonism, but he does have mild truncal ataxia and long tract signs. SCA appears less likely given the lack of burden of cerebellar symptoms. The other consideration would be FXTAS given the presence of tremor, mild ataxia, neuropathy, cognitive disturbance; he has never had a genetic testing and it would not necessarily slip box changer. His prior MRI Brain: notable for mild-moderate generalized atrophy and subtle midline cerebellar atrophy, otherwise unremarkable and MRI C-spine was notable for mild C4-5>C5-6 degenerative changes, no cord impingement/signal changes; MRI s were otherwise unremarkable. Prior EMG/NCS consistent with very mild polyneuropathy as clinically suspected. Reversible labs unremarkable except for borderline elevated HbA1C and urine immunofixation (perlim): small free kappa light chain monoclonal protein, that is being followed by PMD. He has anxiety, irritability and some depressive symptoms. He briefly tried escitalopram after the last visit but could not tolerate it due to fatigue. He is not interested in trying an alternate agent at this time; will clinically monitor for now. My interpretation of the neuropsychological testing is as follows: He has no objective evidence cognitive impairment as noted by MMSE of 28 and MoCA of 27, MoCA being a more sensitive test. He does not have any anxiety as noted by HADS anxiety score of 3, or any depression as highlighted by a GDS of 2 and HADS depression score of 1. He has some RBD symptoms as noted by RBD screening score of 5, or significant excessive daytime sleepiness as reflected by borderline [place] of 10. Global PSQI score of 0 implies good quality of sleep. The RAND SF-36 score implies good quality of life. Recommendations: 1. Will clinically monitor for now, may consider a trial of levodopa with worsening of his parkinsonism. 2. Low threshold to try another agent given the side effects with escitalopram with any further worsening of his anxiety, irritability and depressive symptoms. 3. continue daily exercises and stretching. My total encounter time on 05/13/2023 was 39 minutes (face to face encounter: 3:23 PM - 3:59 PM), which was spent in the activities documented in the note. This includes time spent prior to the visit and after the visit in direct care of the patient. This time does not include any separately reportable services. Assessment & Plan (05/09/2022 11:14 PM CDT): He has a 15 year history of asymmetric onset, minimally progressive, bilateral hand kinetic tremor that does not significantly interfere with his activities with a positive family history, but without any clear benefits with alcohol. This is consistent with essential tremor. Given it does not interfere with his activities, no pharmacologic therapies for his tremor is warranted at this time. 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 He does not meet the diagnostic criteria of idiopathic PD at this time and there has been no objective progression in the interim. Of note, mild bradykinesia can often be seen in the setting of ET; we also discussed the mildly higher risk of PD in the ET population. He has had more subjective complaints consistent with parkinsonism and I would maintain a low threshold for a trial of levodopa with any further worsening of his symptoms; his parkinsonism is still relatively mild however and not outside the realm of what can be seen in the setting of ET. His gait disturbance is likely multifactorial; he has very mild predominantly truncal ataxia, very mild neuropathy and parkinsonism that could be contributing to his gait imbalance. MSA-C, appears less likely given the lack of prominent early autonomic symptoms and lack of objective progression of his parkinsonism, but he does have mild truncal ataxia and long tract signs. SCA appears less likely given the lack of burden of cerebellar symptoms. The other consideration would be FXTAS given the presence of tremor, mild ataxia, neuropathy, cognitive disturbance; he has never had a genetic testing and it would not necessarily slip box changer. His prior MRI Brain: notable for mild-moderate generalized atrophy and subtle midline cerebellar atrophy, otherwise unremarkable and MRI C-spine was notable for mild C4-5>C5-6 degenerative changes, no cord impingement/signal changes; MRI s were otherwise unremarkable. Prior EMG/NCS consistent with very mild polyneuropathy as clinically suspected. Reversible labs unremarkable except for borderline elevated HbA1C and urine immunofixation (perlim): small free kappa light chain monoclonal protein, that is being followed by PMD. He has anxiety, irritability and some depressive symptoms and is now amenable to starting a SSRI, strategies and side effects discussed. Recommendations: 1. start escitalopram as directed; strategies and side effects discussed. 2. May consider a trial of levodopa with worsening of his parkinsonism. 3. continue daily exercises and stretching. My total encounter time on 05/07/2022 was 44 minutes (face to face encounter: 2:22 PM - 3:02 PM), which was spent in the activities documented in the note. This includes time spent prior to the visit and after the visit in direct care of the patient. This time does not include any separately reportable services. Assessment & Plan (06/13/2021 1:52 PM CDT): He has a 15 year history of asymmetric onset, minimally progressive, bilateral hand kinetic tremor that does not significantly interfere with his activities with a positive family history, but without any clear benefits with alcohol. This is consistent with essential tremor. Given it does not interfere with his activities, no pharmacologic therapies for his tremor is warranted at this time. 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 He does not meet the diagnostic criteria of idiopathic PD at this time and there has been no objective interim progression. Of note, mild bradykinesia can often be seen in the setting of ET, but we discussed early idiopathic PD (we discussed the higher risk in the setting of ET) cannot be ruled out at this juncture; that this needs to be clinically monitored and would likely self-declare over time. While it would be perfectly reasonable to initiate a trial of levodopa; his parkinsonism is relatively mild and this may be considered down the road. Moreover, he has some orthostatic symptoms that may worsen with levodopa. He would monitor orthostatic blood pressure at home and would discuss with his PMD in case this needs to be optimized further. His gait disturbance is likely multifactorial; he has very mild predominantly truncal ataxia, very mild neuropathy and parkinsonism that could be contributing to his gait imbalance. MSA-C, albeit less likely given the lack of prominent early autonomic symptoms would also feature in the differential for now given the mild parkinsonism, ataxia and long tract signs. SCA appears less likely given the lack of burden of cerebellar symptoms but would be in the differential as well. The other consideration would be FXTAS given the presence of tremor, mild ataxia, neuropathy, cognitive disturbance. I have personally reviewed the images from MRI Brain: notable for mild-moderate generalized atrophy and subtle midline cerebellar atrophy, otherwise unremarkable and MRI C-spine: notable for mild C4-5>C5-6 degenerative changes, no cord impingement/signal changes and otherwise unremarkable. EMG/NCS consistent with very mild polyneuropathy as clinically suspected. Reversible labs unremarkable except for borderline elevated HbA1C and urine immunofixation (perlim): small free kappa light chain monoclonal protein, that is being followed by PMD. He would benefit from PT given his gait imbalance and he would start this locally. He has anxiety, irritability and some depressive symptoms and could benefit from SSRI, will consider this with any further worsening of symptoms. Recommendations: 1. Will consider a trial of levodopa. 2. refer to PT. 3. Check orthostatic blood pressure; may need further optimization of anti-hypertensive regimen given the orthostatic symptoms. 4. Will consider SSRI. 5. continue daily exercises and stretching. My total encounter time on 06/12/21 was 41 minutes (face to face encounter: 1:37 PM - 2:14 PM), which was spent in the activities documented in the note. This includes time spent prior to the visit and after the visit in direct care of the patient. This time does not include any separately reportable services. Assessment & Plan (10/18/2020 8:46 PM REGISTERED NURSES): He has a 15 year history of asymmetric onset, minimally progressive, bilateral hand kinetic tremor that does not significantly interfere with his activities without any clear benefits with alcohol. His mother had a similar history of late onset bilateral hand tremor in her 60s, but without any subsequent gait imbalance/dementia until she in her 80s. This is consistent with essential tremor. Given it does not interfere with his activities, no pharmacologic therapies for his tremor is warranted at this time. 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 He does not meet the diagnostic criteria of idiopathic PD at this time. Of note, mild bradykinesia can often be seen in the setting of ET, but we discussed early idiopathic PD cannot be ruled out at this juncture; that this needs to be clinically monitored and would likely self-declare over time. We also discussed that it would not be unreasonable to initiate a trial of levodopa; his parkinsonism is however relatively mild and this may be considered down the road. His gait disturbance is likely multifactorial; he has very mild truncal (mild difficulty with tandem gait can often be seen in the setting of ET) and appendicular ataxia, predominantly sensory neuropathy and parkinsonism that could be contributing to his gait imbalance. MSA-C, albeit less likely given the lack of prominent early autonomic symptoms would also feature in the differential for now given the mild parkinsonism, ataxia and long tract signs. SCA appears less likely given the lack of burden of cerebellar symptoms but would be in the differential as well. The other consideration would be FXTAS given the presence of tremor, mild ataxia, neuropathy, cognitive disturbance. Will check MRI Brain and C-spine given the subtly asymmetric hyperreflexia. Will check EMG/NCS and reversible labs for his neuropathy/ataxia. He would benefit from PT given his gait imbalance. My interpretation of the neuropsychological testing is as follows: He has some cognitive impairment as noted by MMSE of 28 and MoCA of 21, MoCA being a more sensitive test, will check reversible labs. He does not have any anxiety as noted by HADS anxiety score of 4, or any depression as highlighted by a GDS of 1 and HADS depression score of 2. The RAND SF-36 scores imply mild impairment of quality of life. Recommendations: 1. check MRI Brain and C-spine with and without contrast. 2. check labs: CBC, CMP, TSH, B12, HbA1C, ESR, CRP, VONNIE, ANCA, TONIA, HIV, [place], Vit E, zinc, anti- endomysial and anti-transglutaminase (TTG) antibodies, anti-thyroglobulin (TG), anti-thyroperoxidase (TPO) antibodies and serum and urine immunofixation. 3. EMG/NCS (here at [facility]) for evaluation of neuropathy. 4. refer to PT. 5. continue daily exercises and stretching. Chronic coronary artery disease 04/12/2013 Overview (05/12/2018): Assessment & Plan (08/17/2024 9:57 AM REGISTERED NURSES): Coronary artery disease is asymptomatic. . Continue current treatment regimen. Regular aerobic exercise. Continue current medications. Cardiac status will be reassessed in 1 year. Stress ECHO 02/22/22: Impression: 1. Maximal Exercise Stress Echocardiogram, NEGATIVE for myocardial ischemia. 2. Poor exercise performance. (5 METS). 3. Baseline echo with normal biventricular function, grade 1 LV diastolic dysfunction, no significant valve abnormalities. Assessment & Plan (08/12/2023 1:22 PM CDT): Coronary artery disease is asymptomatic. . Continue current treatment regimen. Regular aerobic exercise. Continue current medications. Cardiac status will be reassessed in 1 year. Assessment & Plan (07/22/2022 10:35 AM CDT): Coronary artery disease is asymptomatic.. Continue current treatment regimen. Regular aerobic exercise. Continue current medications. Cardiac status will be reassessed in 1 year. Assessment & Plan (07/19/2021 10:54 AM CDT): Coronary artery disease is asymptomatic. Continue current treatment regimen. Regular aerobic exercise. Continue current medications. Cardiac status will be reassessed in 1 year. Assessment & Plan (07/18/2020 11:45 AM CDT): Coronary artery disease is asymptomatic.. Continue current treatment regimen. Regular aerobic exercise. Continue current medications. Cardiac status will be reassessed in 1 year. Assessment & Plan (05/14/2019 9:24 AM CDT): Coronary artery disease is asymptomatic. Continue current treatment regimen. Regular aerobic exercise. Continue current medications. Cardiac status will be reassessed in 1 year. Assessment & Plan (05/12/2018 9:59 AM CDT): Controlled. No anginal SX. Continue current regimen. 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 Overview (01/15/2017): IMPOTENCE, ORGANIC ORIGN History of adenomatous polyp of colon 03/10/2013 Assessment & Plan (08/17/2024 9:39 AM REGISTERED NURSES): Up to date on colonoscopy Assessment & Plan (08/12/2023 1:22 PM CDT): Up to date on colonoscopy Assessment & Plan (07/22/2022 10:43 AM CDT): Up to date on colonoscopy Resolved Problems Problem Noted Date Diagnosed Date Resolved Date Serosal tear of colon 09/26/20232023 IFG (impaired fasting glucose) 02/13/2021 07/22/2022 Assessment & Plan (07/22/2022 10:36 AM CDT): Impaired Fasting Glucose is improving with lifestyle modifications Counseled on regular aerobic exercise, including walkig, jogging, targeting 10K- 20K step equivalent daily., Counseled on low carbohydrate diet and Counseled on intermittent fasting diet. Follow up at the next regular appointment Assessment & Plan (07/19/2021 11:09 AM CDT): Impaired Fasting Glucose is improved. Counseled on regular aerobic exercise, including walkig, jogging, targeting 10K- 20K step equivalent daily., Counseled on low carbohydrate diet and Counseled on intermittent fasting diet. Follow up at the next regular appointment CKD (chronic kidney disease), stage II 07/25/2020 08/17/2024 Assessment & Plan (08/12/2023 1:22 PM CDT): CKD is unchanged. Continue current treatment regimen. Regular aerobic exercise. Continue current medications. Renal condition will be reassessed today . Assessment & Plan (07/19/2021 11:00 AM CDT): CKD is unchanged. Continue current treatment regimen. Regular aerobic exercise. Continue current medications. Renal condition will be reassessed today. Rupture of flexor tendon of left hand 01/15/2019 02/16/2019 Overview (01/15/2019): Added automatically from request for surgery [id number] Immunizations Immunization Administration Dates Next Due Influenza, Quad, Adjuvantate d, Intramuscular 07/17/2020 Influenza, Quadrivalent, Hig h Dose, Preservative Free, Intrr 08/12/2023 Influenza, Quadrivalent, Rec ombinant, Egg Free, Preservative Free, Intramuscular 07/22/2022,07/19/2021 Influenza, Quadrivalent, Spl it, Preservative Free, Intramuscular 07/17/2020 Influenza, Split 07/23/2010 Influenza, Trivalent, Adjuva nted, Intramuscular 09/16/2024,07/13/2019 Influenza, Trivalent, High D ose, Split, Preservative Free, Intramuscular 07/17/2020,07/17/2020,09/16/2018,08/04 Influenza, Trivalent, IM (MDV) 6,10/18/2014,10/04/2013,07/13,07/13/2013,08/24/2012,08/13/2011 ,07/21/2008 Influenza, Trivalent, Preser vative Free, Intramuscular 08/09/2016,08/09/2015 Pfizer SARS-CoV-2 Monovalent Vaccination (12+ Yrs) PURPLE 12/04/2020,11/06/2020 Pfizer Sars-Cov-2 Bivalent V accination (12+ YRS) 07/02/2022 Pneumococcal Conjugate PCV 13 06/01/2017 Pneumococcal Polysaccharide PPV23 07/17/2020,06/2008 RSV Vaccine, Pref, Recombina nt, Subunit, Adjuvanted, PF, IM (Arexvy) 10/31/2023 TD Preservative Free 01/22/2014,07/23/2010 Td, adsorbed 07/23/2010 Tdap 09/16/2024 ZOSTER LIVE 07/03/2009,07/03/2009,12/31/2008 ZOSTER Recombinant 11/18/2019,09/06/2019 Social History Tobacco Use Types Packs/Day Years Used Date Smoking Tobacco: Never Smokeless Tobacco: Never Tobacco Cessation:Counseling Given: Not Answered Alcohol Use Standard Drinks/Week Comments Yes 3 [...] on file Legal Sex Male 12:19 AM REGISTERED NURSES Gender Identity Male 11/02/2019 4:27 PM REGISTERED NURSES Sexual Orientation Not on file Last Filed Vital Signs Vital Sign Reading Time Taken Comments Blood Pressure 114/72 2025 12:54 PM CDT Pulse 68 2025 12:54 PM CDT Temperature 36.3 C (97.4 F) 02/14/2025 9:40 AM CDT Respiratory Rate 19 02/08/2025 10:4 0 AM CDT Oxygen Saturation 97% 2025 12: 54 PM CDT Inhaled Oxygen Concentration - - Weight 80.2 kg (176 lb 11.2 oz) 025 10:57 AM CDT Height 177.8 cm (5' 10 ) 02/23/2025 10: 57 AM CDT Body Mass Index 25.35 02/23/2025 10:57 AM CDT Plan of Treatment Scheduled Procedures Name Priority Associated Diagnoses Date/Ti me ESOPHAGOGASTRODUODENOSCOPY Open Access 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) Medical Devices Implanted Type Area Welding Machine Operator Submerged Arc Device Identifier Shelf Expiration Date Model / Serial / Lot Everolimus-Elutin g Piarinum Chromium Coronary Stent N/A: Heart [employer] [id number] Acrysof Iq Stableforce Ultrasert Tensionglide 6mm 13mm Aspheric - [id number] - [id number] Implanted:Qty: 1 on 07/27/2020 by Kayla Dye MD at [facility] [employer] 05/12/2021 [id number] / [id number] / Procedures Procedure Name Priority Date/Time Associated Diagnosis Comments PRO B-TYPE NATRIURETIC PEPTIDE Routine 0 2025 1:52 PM CDT Shortness of breath ESOPHAGOGASTRODUODENOSCOPY 02/08 9:48 AM CDT 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) EGD 02/08/2025 9:27 AM CDT TOTAL TESTOSTERONE Routine 02/07/2025 12:00 PM CDT Prostate CA (HCC) PSA DIAGNOSTIC Routine 02/07/2025 12:00 PM CDT Prostate CA (HCC) FL MODIFIED BARIUM SWALLOW W VIDEO Schedule Routine, Read Routine (OP Routine) 01/26/2025 1:24 PM CDT Aspiration into respiratory tract, initial encounter MEASURE POST VOID RESIDUAL Routine 01/04 1:49 PM CDT Benign prostatic hyperplasia with urinary obstruction OCT, RETINA - OU - BOTH EYES Routine 10:54 AM CDT Macular pattern dystrophy PULMONARY FUNCTION TEST (PFT) Routine 03 / 10:41 AM CDT 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 Aspiration into respiratory tract, initial encounter PROTEIN ELECTROPHORESIS, WIT H REFLEX, SERUM Routine 12/16/2024 9:36 AM REGISTERED NURSES 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 IMMUNOGLOBULIN FREE LIGHT CHAINS Routine 12/16/2024 9:36 AM REGISTERED NURSES 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 IMMUNOFIXATION, URINE Routine 12/16/2024 9:06 AM REGISTERED NURSES 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 EGFR Routine 12/16/2024 8:35 AM REGISTERED NURSES 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 MANUAL DIFFERENTIAL Routine 12/16/2024 8:35 AM REGISTERED NURSES 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 CBC WITH AUTO DIFFERENTIAL Routine 12/16 8:35 AM REGISTERED NURSES 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 COMPREHENSIVE METABOLIC PANEL Routine 8:35 AM REGISTERED NURSES 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 Dyspnea in Acute Care Setting All Ages: < 300 pg/ml, acute heart failure unlikely. < 50 yrs: 300 - 450 pg/ml, further investigation warranted. > 450 pg/ml, acute heart failure likely. 50 - 74 yrs: 300 - 900 pg/ml, further investigation warranted. > 900 pg/ml, acute heart failure likely . > or = 75 yrs: 450 - 1800 pg/ml, further investigation warranted. > 1800 pg/ml, acute heart failure likely. B. Non-acute Setting < 75 yrs < 125 pg/ml, rules out heart failure. > or = 125 pg/ml, further investigation warranted. > or = 75 yrs < 450 pg/ml, rules out heart failure. > or = 450 pg/ml, further investigation warranted. - Knowledge of each individual patient's NT-proBNP range may be more useful than using similar cut-points for every patient. Please note that marked elevations in NT-proBNP levels may be observed in state other than Left Ventricular Congestive Failure, including: acute coronary syndromes, right heart strain/failure (including pulmonary embolism and cor pulmonale), critical illness, renal failure, as well as advanced age. - References: 1. Lencho BENDER et.al. Eur Heart J. 2006:27:330-337. 2. Rupal RW, Batista AM. J. AM Brent Cardiol: Cardiovasc Imag. 2009;2: 216- 225. Interpretive Data Last Revised Date: 2018. Blood 2025 1:52 PM CDT 2025 2:56 PM CDT us Nehemias Carrillo MD LAB BLOOD ORDERABLES Final Re sult [facility] [id number] [facility]. [place] [address] * EGD (02/08/2025 9:27 AM CDT) Anatomical Region Laterality Modality Other Narrative Procedure Note Rayo Estrella MD - 02/08/2025 9:27 AM CDT GI ENDOSCOPY [facility] Patient Name: Reid Ward Procedure Date: 02/08/2025 9:27 AM Date of : 1940 Admit Type: Outpatient Age: 84 Gender: Male Attending MD: Rayo Mitchell M.D. Room: [facility] ENDOSCOPY ROOM 1 Note Status: Finalized Procedure: Upper GI endoscopy Indications: Dysphagia Referring MD: Jaqueline Blake M.D. Providers: Rayo Mitchell M.D., Samira Larose M.D. Medicines: Monitored Anesthesia Care Complications: No immediate complications. Estimated Blood Loss: Estimated blood loss was minimal. Procedure: Pre-Anesthesia Assessment: - The risks and benefits of the procedure and the sedation options and risks were discussed with the patient. All questions were answered and informed consent was obtained. The benefits, risks, and alternatives to theprocedure and sedation were discussed and informed consentwas obtained. The scope was passed under direct vision. The GIF H190 [id number] endoscope was introducedthrough the mouth, and advanced to the second part of duodenum. The upper GI endoscopy was accomplished without difficulty. The patient tolerated the procedure well. Findings: LA Grade B (one or more mucosal breaks greater than 5 mm, notextending between the tops of two mucosal folds) esophagitis with no bleedingwas found. Abnormal motility was noted in the esophagus. There is spasticity ofthe esophageal body. The distal esophagus/lower esophageal sphincter isopen. The entire examined stomach was normal. The examined duodenum was normal. Impression: - LA Grade B reflux esophagitis with no bleeding.This is likely the explanation for dysphagia symptoms. Recommendation: - Observe patient in recovery. - Continue present diet and medications. - Start pantoprazole 40 mg twice daily for 3 months then reduce to once daily. - If symptoms persist after high dose PPI therapy, consider high resolution esophageal manometry to evaluate for underlying motility disorder. - Follow-up in the general GI clinic to establishcare and direct further interventions as needed. - No ibuprofen, naproxen, or other non-steroidal anti-inflammatory drugs. - Return to referring physician as previously scheduled. - In the unusual situation that you developabdominal pain, bleeding or other significant problems in the days following this procedure please call my officeat [phone] ([phone]) to speak to my nurses. After hours and evenings please call [phone] speak to the GI fellow sales person. Please tell themthat Dr. Mitchell did your procedure and that your were instructed to have the fellow call me or thephysician covering for me to discuss the management of your condition. If you have an urgent problem, please goto the nearest emergency room and have the ER doctorcall my office during the day or [facility] transfer ([phone]) center after hours and weekends to arrange admission or transfer to our facility. Attending Participation: I was present and participated during the entire procedure, including non-coffey portions. Electronically signed by Rayo Mitchell MD Rayo Mitchell M.D. 02/08/2025 10:23:47 AM . Number of Addenda: 0 Note Initiated On: 02/08/2025 9:27 AM us Rayo Mitchell MD ENDOSCOPY PROCEDURES Final Result * (ABNORMAL) Total testosterone (02/07/2025 12:00 PM CDT) Testosterone <3(L) 193 - 740 ng/dL Blood 02/07/2025 12:0 0 PM CDT 02/07/2025 4:50 PM CDT [facility] Ximena Saleem NP LAB BLOOD ORDERABLES F inal Result Performing Organization Address [facility] [place] [address] [address] Department [place] [address] * PSA diagnostic (02/07/2025 12:00 PM CDT) PSA-Total 0.05 <=6.20 ng/mL Comment: Interpretive Data AGE SEX REFERENCE INTERVAL 0 minutes-150 years Female None 0 minutes-49 years Male None 50-59 years Male 0-3.90 60-69 years Male 0-5.40 70-79 years Male 0-6.20 80-150 years Male 0-6.20 The Sofi PSA Total assay procedure was used. Results from different manufacturers or methods may not be comparable. Serial testing should be performed using the same method. Current interpretive data last revised 22. Blood 02/07/2025 12:0 0 PM CDT 02/07/2025 4:50 PM CDT Santa Saleem NP LAB BLOOD ORDERABLES F inal Result Performing Organization Address [facility] [place] [address] [address] Department [place] [address] * FL Modified Barium Swallow W Video (01/26/2025 1:24 PM CDT) Anatomical Region Laterality Modality Head and Neck N/A Radio Fluoroscop y 01/26/2025 3:19 PM CDT Impressions 01/26/2025 3:29 PM CDT The swallowing mechanism is abnormal; see above comments. Please refer to the Speech Pathology procedure note for safe swallow recommendations as well as additional information regarding the oral-pharyngeal swallow function, plan of care, and recommended follow up. Dictated by: Jeana Viera M.D. The radiology attending physician has personally reviewed this study, and had reviewed and/or edited this written report and agrees with it. Electronically signed by: Jh Dye M.D. [facility] 01/26/2025 3:29 PM CDT EXAMINATION: MODIFIED BARIUM SWALLOW HISTORY: Dysphagia. TECHNIQUE: This procedure was completed in conjunction with a Speech Language Pathologist. The patient was given barium of multiple different consistencies to swallow. Video fluoroscopy was employed during the exam. FINDINGS: Pharyngeal and suspected esophageal swallow function is abnormal. Penetration: Yes There is penetration of thin liquids. Penetration is normal sensed. The penetrated material and cleared. Aspiration: Yes There is aspiration of thin liquids. Aspiration is not sensed. The aspirated material is cleared. Residue:Yes There is pharyngeal residue of thin liquid. Residue is not sensed. The residual material is intermittently cleared. Other comments: Patulous esophagus Procedure Note Jh Dye MD - 01/26/2025 EXAMINATION: MODIFIED BARIUM SWALLOW HISTORY: Dysphagia. TECHNIQUE: This procedure was completed in conjunction with a Speech Language Pathologist. The patient was given barium of multiple different consistencies to swallow. Video fluoroscopy was employed during the exam. FINDINGS: Pharyngeal and suspected esophageal swallow function is abnormal. Penetration: Yes There is penetration of thin liquids. Penetration is normal sensed. The penetrated material and cleared. Aspiration: Yes There is aspiration of thin liquids. Aspiration is not sensed. The aspirated material is cleared. Residue:Yes There is pharyngeal residue of thin liquid. Residue is not sensed. The residual material is intermittently cleared. Other comments: Patulous esophagus IMPRESSION: The swallowing mechanism is abnormal; see above comments. Please refer to the Speech Pathology procedure note for safe swallow recommendations as well as additional information regarding the oral-pharyngeal swallow function, plan of care, and recommended follow up. Dictated by: Jeana Viera M.D. The radiology attending physician has personally reviewed this study, and had reviewed and/or edited this written report and agrees with it. Electronically signed by: Jh Dye M.D. Jaqueline Blake MD [facility] FLUOROSCOPY PROCEDURES Final Result * Measure post void residual (01/04/2025 1:49 PM CDT) Narrative Anat Dunn, RN - 01/04/2025 1:49 PM CDT Measurement of Post-voiding residual urine and/or bladder capacity by ultrasound, non-imaging. PVR= 1 mL Will Barkley MANAGEMENT SERVICES TECHNICIAN NURSING ASSESSMENTS Fi nal Result * OCT, Retina - OU - Both Eyes (01/04/2025 10:54 AM CDT) Anatomical Region Laterality Modality Head Optical Coherenc e Tomography Narrative 01/04/2025 10:54 AM CDT right eye (OD): stable non central outer segment atrophy, improved mild non central small PED, few hyper-reflective deposits, no subretinal fluid, no cystoid macular edema (CME) left eye (OS): grossly stable paracentral paracentral PED, few drusen, no subretinal fluid or cystoid macular edema (CME) partial hyaloid detachment, minmal epiretinal membrane (ERM) Gabi Segura MD PhD OPHTH TOMOGRAPHY Fin al Result * Pulmonary Function Test - (12/27/2024 10:41 AM CDT) FVC PRE 3.[address] [facility] FVC %PRE PRED 96 % [facility] FEV1 PRE 2.[address] [facility] FEV1 %PRE PRED 101 % [facility] FEV1/FVC PRE 76.8 % [facility] FRC PL PRE 3.[address] [facility] FRC PL %PRE PRED 97 % [facility] RV PRE 2.[address] [facility] RV %PRE PRED 80 % [facility] TLC PRE 5.[address] [facility] TLC %PRE PRED 82 % [facility] DLCO PRE 11.8 ml/min/mmH g [facility] DLCO %PRE PRED 52 % [facility] Anatomical Region Laterality Modality PFT 12/27/2024 10:0 9 AM CDT Narrative 12/27/2024 4:24 PM CDT Table formatting from the original result was not included. [facility] Division of Pulmonary & Critical Care Medicine [address] [place] [address]; [place] [address]; [place] [id number]; [phone] Pulmonary Function Laboratory Pulmonary Stress Test Simple/Oxygen Assessment Patient: Reid Ward Date: 12/27/2024 : 1940 Ht: 68 IN Wt: 175 LBS Time (min) Distance (ft)/ Paredes O2 L/M SpO2 HR Tomasz* BP FEV1 % Pred Rest: RA 100 82 0 142/63 2.52 101 % Walk/Bike: 1 RA 96 104 2 2 RA 96 108 2 3 RA 96 109 2 4 RA 96 111 2 5 RA 97 107 2 6 min 0 sec RA 96 109 2 Recovery: 1 RA 97 103 2 129/68 2.51 100% 3 RA 100 81 0 *Tomasz rate of perceived exertion (1-10 dyspnea scale) Matteo, CHEST 2003; 123:1408 Walk Test Summary: Six Minute Walk Distance: 1050 ft Six-minute Walk Work [distance (m) x body wt (kg)]: 52777 kg.m (normal >60,000kg.m) Oxygen required to maintain SpO2 greater than 90% during six minutes of walkin L/M Comments: O2A/WFD-0 STOPS Interpretation: Breathing room air, SpO2 is normal at rest and during exercise sufficient to increase pulse, SpO2 falls but remains normoxemic . On this basis, SpO2 is adequate at rest breathing room air and while walking breathing room air. This level of exercise is associated with no significant change of FEV1. By signing this report, the attending pulmonary physician certifies that he/she has personally reviewed and interpreted the graphic and numerical data associated with this pulmonary function study and has reviewed and /or edited a preliminary draft report and agrees with the written final report. PFT performed at:->[facility] Adult PFT Lab- [facility]-8D Procedure:->Pulse Ox Procedure:->Standard Procedure:->Walk for Distance Standard:->Spirometry, Spirometry w/bronchodilator, DLCO and Lung Volumes Pulmonary Function Test Interpretation SPIROMETRY: Spirometry is normal. The flow volume loop is normal. LUNG VOLUMES: TLC measured by plethysmography is normal. DLCO: The diffusing capacity corrected for hemoglobin level (DLCO ADJ) is mildly decreased. A decreased diffusing capacity may be due to loss of pulmonary capillary surface area. Causes include pulmonary fibrosis (altered V/Q relationship), pulmonary vascular disease, emphysema, or interstitial pneumonitis. Impression: There is no ventilatory defect. There is a mild impairment of alveolar gas exchange by DLCO. The attending pulmonary physician certifies a physician presence in the [facility] Suite during the administration of aerosolized bronchodilator. The attending pulmonary physician certifies that he/she has reviewed and interpreted the graphic and numerical data of this pulmonary function study and agrees with the written final report. The lower limit of normal for PaO2 and %HbO2 is age dependent. However, the [facility] Pulmonary Function Laboratory defines hypoxemia as a PaO2 <56 mm Hg or a %HbO2 <89%. Starting on October of 2024 the [facility] Pulmonary Function Laboratory utilizes race neutral GLI Global normative equations. Jaqueline Blake MD PFT ORDERABLES Final Resu lt * Immunoglobulin free light chains (12/16/2024 9:36 AM REGISTERED NURSES) Wauna/Lambda ratio [facility] 1.35 0.26 - 1.65 Comment: Interpretive Data The Binding Site FreeLite assay procedure was used. Results from different manufacturers or methods may not be comparable. Serial testing should be performed using the same methods and instrumentation. Current Interpretive Data was last revised on 2023. Wauna free light chain [facility] 1.65 0.33 - 1.94 mg/dL [facility] Comment: Interpretive Data The Binding Site FreeLite assay procedure was used. Results from different manufacturers or methods may not be comparable. Serial testing should be performed using the same methods and instrumentation. Current Interpretive Data was last revised on 2023. Lambda free light chain [facility] 1.22 0.57 - 2.63 mg/dL [facility] Comment: Interpretive Data The Binding Site FreeLite assay procedure was used. Results from different manufacturers or methods may not be comparable. Serial testing should be performed using the same methods and instrumentation. Current Interpretive Data was last revised on 2023. Blood 12/16/2024 9:36 AM REGISTERED NURSES 12/16/2024 10:42 AM REGISTERED NURSES Jaqueline Blake MD LAB BLOOD ORDERABLES Final Result [facility] [place] [address] * Protein electrophoresis with reflex, serum with interpretation (12/16/2024 9:36 AM REGISTERED NURSES) [facility] Protein, sr 6.2 6.2 - 8.2 g/dL Albumin 4.0 3.2 - 5.0 g/dL [facility] Alpha-1 globulin 0.3 0.2 - 0.4 g/dL [facility] Alpha-2 globulin 0.7 0.5 - 1.0 g/dL [facility] Beta-1 globulin 0.4 0.3 - 0.6 g/dL [facility] Beta-2 globulin 0.2 0.2 - 0.6 g/dL [facility] Gamma globulin 0.6 0.5 - 1.7 g/dL [facility] SPEP interp Please see comment [facility] Comment: No apparent monoclonal peak Electrophoretic pattern appears similar to previous sample 06/11/2024 Reviewed and signed by Roxanne Ivy MD, PhD 12/17/2024 Blood 12/16/2024 9:36 AM REGISTERED NURSES 12/16/2024 10:42 AM REGISTERED NURSES us Jaqueline Blake MD LAB BLOOD ORDERABLES Final Result Performing Organization Address [facility] Co de Phone Number [facility] [place] [address] * Immunofixation, urine with interpretation (12/16/2024 9:06 AM REGISTERED NURSES) [facility] Immunofixation, Ur Please see comment Comment: NO PARAPROTEIN DETECTED Reviewed and signed by Roxanne Ivy MD, PhD 12/17/2024 Urine 12/16/2024 9:06 AM REGISTERED NURSES 12/16/2024 9:28 AM REGISTERED NURSES Jaqueline Blake MD LAB URINE ORDERABLES Final Result Performing Organization Address [facility] Co de Phone Number [facility] [place] [address] * (ABNORMAL) eGFR (12/16/2024 8:35 AM REGISTERED NURSES) Pathologist [facility] eGFR 44(L) >=60 mL/min/1. 73 m2 Comment: Interpretive Data Reference Interval Normal >/= 90 mL/min/1.73m2 Mildly decreased* 60 - 89 mL/min/1.73m2 Mildly to moderately decreased 45 - 59 mL/min/1.73m2 Moderately to severely decreased 30 - 44 mL/min/1.73m2 Severely decreased 15 - 29 mL/min/1.73m2 Kidney Failure < 15 mL/min/1.73m2 *Relative to young adult level Estimated glomerular filtration rate is determined by the 2020 CKD-EPI equation recommended by the National Kidney Foundation (A Unifying Approach to GFR Estimation: Recommendations of the NKF-ASK Task Force on Reassessing the Inclusion of Race in Diagnosing Kidney Disease, JASN 2020). The CKD-EPI equation should not be used for patients with unstable renal function and has not been validated in children and those over 70. Current interpretive data was last reviewed 2021. Blood 12/16/2024 8:35 AM REGISTERED NURSES 12/16/2024 8:45 AM REGISTERED NURSES us Jaqueline Blake MD LAB BLOOD ORDERABLES Final Result [facility] [place] [address] * (ABNORMAL) CBC with auto differential (12/16/2024 8:35 AM REGISTERED NURSES) [facility] WBC 2.3(L) 3.8 - 9.9 K/cumm Comment:Testing performed by : [facility], [address] [place] [phone] Hgb 10.3(L) 13.0 - 17.5 g/dL [facility] CHOI Comment:Testing performed by : [facility], [address] [place] [phone] Hct 29.9(L) 38.9 - 50.3 % [facility] Comment:Testing performed by : [facility], [address] [place], [place] [id number] Plt 158 150 - 400 K/cumm [facility] Comment:Testing performed by : [facility], [address] [place], [place] [id number] MPV 8.7 6.8 - 10.4 fL [facility] Comment:Testing performed by : [facility], [address] [place], [place] [id number] RBC 2.88(L) 4.30 - 5.80 M/cumm [facility] Comment:Testing performed by : [facility], [address] [place], [place] [id number] MCV 103.8(H) 81.3 - 96.4 fL [facility] Comment:Testing performed by : [facility], [address] [place], [place] [id number] MCH 35.7(H) 27.1 - 33.3 pg [facility] Comment:Testing performed by : [facility], [address] [place], [place] [id number] MCHC 34.4 32.3 - 35.7 g/dL [facility] Comment:Testing performed by : [facility], [address] [place], [place] [id number] RDW CV 13.5 11.1 - 14.9 % [facility] Comment:Testing performed by : [facility], [address] [place], [place] [id number] NRBC abs 0.00 0.00 - 0.01 K/cumm [facility] Comment:Testing performed by : [facility], [address] [place], [place] [id number] Blood 12/16/2024 8:35 AM REGISTERED NURSES 12/16/2024 8:42 AM REGISTERED NURSES us Jaqueline Blake MD LAB BLOOD ORDERABLES Edite d Result - Final [facility] [address] [place] [address] * (ABNORMAL) Manual Differential (12/16/2024 8:35 AM REGISTERED NURSES) Cells Counted 100 Comment:Testing performed by : [facility], [address] [place] [address] Neutrophil abs 1.3(L) 1.5 - 6.5 K/cumm [facility] Comment:Testing performed by : [facility], [address] [place], [place] [id number] Lymphocyte abs 0.4(L) 0.8 - 3.3 K/cumm [facility] Comment:Testing performed by : [facility], [address] [place], [place] [id number] Monocyte abs 0.4 0.2 - 0.8 K/cumm CERNER BJ Comment:Testing performed by : [facility], [address] [place], [place] [id number] Eosinophil abs 0.2 0.0 - 0.5 K/cumm CERNER BJ Comment:Testing performed by : [facility], [address] [place], [place] [id number] Basophil abs 0.0 0.0 - 0.1 K/cumm CERNER BJ Comment:Testing performed by : [facility], [address] [place] [phone] Neutrophil pct 57.0 % CERNER BJ Comment: Interpretive Data Percent cell count reference ranges are not reported, since discordance with absolute values may lead to misinterpretation of CBC data. Current Interpretive Data was last revised on 2018. Testing performed by: [facility], [address] [place] [phone] Lymphocyte pct 17.0 % CERNER BJ Comment: Interpretive Data Percent cell count reference ranges are not reported, since discordance with absolute values may lead to misinterpretation of CBC data. Current Interpretive Data was last revised on 2018. Testing performed by: [facility], [address] [place], [place] [id number] Monocyte pct 17.0 % [facility] Comment: Interpretive Data Percent cell count reference ranges are not reported, since discordance with absolute values may lead to misinterpretation of CBC data. Current Interpretive Data was last revised on 2018. Testing performed by: [facility], [address] [place], [place] [id number] Eosinophil pct 8.0 % [facility] Comment: Interpretive Data Percent cell count reference ranges are not reported, since discordance with absolute values may lead to misinterpretation of CBC data. Current Interpretive Data was last revised on 2018. Testing performed by: [facility], [address] [place], [place] [phone] Basophil pct 0.0 % CERNER BJ Comment: Interpretive Data Percent cell count reference ranges are not reported, since discordance with absolute values may lead to misinterpretation of CBC data. Current Interpretive Data was last revised on 2018. Testing performed by: [facility], [address] [place], [place] [id number] Variant lymph pct 1.0(H) 0.0 - 0.0 % CERNER BJ Comment:Testing performed by : [facility], [address] [place], [place] [id number] Polychromasia 1+(A) CERNER BJ Comment:Testing performed by : [facility], [address] [place], [place] [id number] Poikilocytosis 1+(A) CERNER BJ Comment:Testing performed by : [facility], [address] [place], [place] [id number] Macrocytes 1+(A) CERNER BJ Comment:Testing performed by : [facility], [address] [place], [place] [id number] Elliptocytes 1+(A) CERNER BJ Comment:Testing performed by : [facility], [address] [place], [place] [id number] Platelet estimate Adequate CERNER BJ Comment:Testing performed by : [facility], [address] [place], [place] [id number] Blood 12/16/2024 8:35 AM REGISTERED NURSES 12/16/2024 8:42 AM REGISTERED NURSES Jaqueline Blake MD LAB BLOOD ORDERABLES Edite d Result - Final Performing Organization Address City/[facility]/ZIP Co de Phone Number [facility] [place] [place] [address] * Lactate dehydrogenase (LD) (12/16/2024 8:35 AM REGISTERED NURSES) Lactate dehydrogenase (LDH) 240 100 - 250 Units/L Blood 12/16/2024 8:35 AM REGISTERED NURSES 12/16/2024 8:45 AM REGISTERED NURSES Jaqueline Blake MD LAB BLOOD ORDERABLES Final Result Performing Organization Address [facility] de Phone Number [facility] [place] [place] [address] * (ABNORMAL) Comprehensive metabolic panel (12/16/2024 8:35 AM REGISTERED NURSES) Pathologist [facility] Sodium 143 135 - 145 mmol/L Potassium, pl 4.5 3.3 - 4.9 mmol/L [facility] Chloride 112(H) 97 - 110 mmol/L [facility] CO2 23 22 - 32 mmol/L [facility] Anion gap 8 2 - 15 mmol/L [facility] BUN 35(H) 6 - 25 mg/dL [facility] Creatinine 1.56(H) 0.80 - 1.30 mg/dL [facility] Glucose 105 70 - 199 mg/dL [facility] Comment: Interpretive Data Fasting glucose >/= 126 mg/dl is diagnostic for diabetes. Fasting is defined as no caloric intake for at least 8 hours. Fasting glucose between 100 mg/dl to 125 mg/dl is diagnostic of prediabetes. In a patient with classic symptoms of hyperglycemia or hyperglycemic crisis, a random glucose >/= 200 mg/dl is diagnostic for diabetes. In the absence of unequivocal hyperglycemia, results should be confirmed by repeat testing. The classification and Diagnosis of Diabetes Diabetes Care 2022; 46: S19-S40. Current interpretive data was last revised 2022. Calcium 10.0 8.5 - 10.3 mg/dL [facility] Bilirubin, total 0.4 0.1 - 1.2 mg/dL [facility] Protein, pl 6.1(L) 6.5 - 8.5 g/dL [facility] Albumin 3.9 3.5 - 5.0 g/dL [facility] Alk phos 70 40 - 130 Units/L [facility] ALT 27 7 - 55 Units/L [facility] AST 26 10 - 50 Units/L [facility] Blood 12/16/2024 8:35 AM REGISTERED NURSES 12/16/2024 8:45 AM REGISTERED NURSES us Jaqueline Blake MD LAB BLOOD ORDERABLES Final Result [facility] [address] [facility] [address] [place] [address] * CT chest abdomen pelvis without contrast (12/16/2024 7:57 AM REGISTERED NURSES) Anatomical Region Laterality Modality Body N/A Computed Tomogra phy 12/16/2024 8:10 AM REGISTERED NURSES Impressions 12/16/2024 8:10 AM REGISTERED NURSES 1. Worsening lung bases in keeping with aspiration changes. 2. No definite metastasis or recurrence. 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 Electronically signed by: Luiz Maradiaga M.D. Narrative 12/16/2024 8:10 AM REGISTERED NURSES EXAMINATION: CT CHEST, ABDOMEN AND PELVIS WITHOUT INTRAVENOUS CONTRAST TECHNIQUE: Standard noncontrast CT of the chest, abdomen and pelvis was performed. HISTORY: Follicular lymphoma FINDINGS: Prior PET/CT of 06/10/2024 Chest: Findings of granulomatous disease again seen. Within the lung bases note is made of diffuse patchy airspace opacities with groundglass and reticulation. These may represent the sequela of aspiration given the patulous esophagus. These have progressed when compared to the prior study. There is no pulmonary noncalcified nodule. No supraclavicular, axillary or mediastinal lymphadenopathy is identified. The heart size is mildly enlarged with a calcified aortic valve in keeping with aortic stenosis. Severe coronary atherosclerosis is also identified. Abdomen/pelvis: The spleen, pancreas and adrenal glands are normal. Tiny cysts are seen within the liver. Very mild left hydronephrosis and renal effacement is again seen without change when compared to the prior study. The aorta is atherosclerotic but not aneurysmal. There is no retroperitoneal or mesenteric lymphadenopathy. Brachytherapy seeds are seen within the prostate and the urinary bladder is fluid-filled and mildly thickened. There is no pelvic lymphadenopathy. Trace amount of ascites is seen within the pelvis. The colon and small bowel are normal in course and caliber. The bone windows are unremarkable. Procedure Note Luiz Maradiaga MD - 12/16/2024 EXAMINATION: CT CHEST, ABDOMEN AND PELVIS WITHOUT INTRAVENOUS CONTRAST TECHNIQUE: Standard noncontrast CT of the chest, abdomen and pelvis was performed. HISTORY: Follicular lymphoma FINDINGS: Prior PET/CT of 06/10/2024 Chest: Findings of granulomatous disease again seen. Within the lung bases note is made of diffuse patchy airspace opacities with groundglass and reticulation. These may represent the sequela of aspiration given the patulous esophagus. These have progressed when compared to the prior study. There is no pulmonary noncalcified nodule. No supraclavicular, axillary or mediastinal lymphadenopathy is identified. The heart size is mildly enlarged with a calcified aortic valve in keeping with aortic stenosis. Severe coronary atherosclerosis is also identified. Abdomen/pelvis: The spleen, pancreas and adrenal glands are normal. Tiny cysts are seen within the liver. Very mild left hydronephrosis and renal effacement is again seen without change when compared to the prior study. The aorta is atherosclerotic but not aneurysmal. There is no retroperitoneal or mesenteric lymphadenopathy. Brachytherapy seeds are seen within the prostate and the urinary bladder is fluid-filled and mildly thickened. There is no pelvic lymphadenopathy. Trace amount of ascites is seen within the pelvis. The colon and small bowel are normal in course and caliber. The bone windows are unremarkable. IMPRESSION: 1. Worsening lung bases in keeping with aspiration changes. 2. No definite metastasis or recurrence. 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 Electronically signed by: Luiz Maradiaga M.D. us Jaqueline Blake MD IMG CT PROCEDURES Final Re sult * (ABNORMAL) POCT creatinine (12/16/2024 7:46 AM REGISTERED NURSES) Creatinine POC 1.8(H) 0.8 - 1.3 mg/dL Blood 12/16/2024 7:46 AM REGISTERED NURSES 12/16/2024 7:46 AM REGISTERED NURSES us Jaqueline Blake MD LAB POCT ORDERABLES - JUDI CE Final Result [facility] [place] [address] * COLONOSCOPY (05/18/2021 8:30 AM CDT) Anatomical Region Laterality Modality Other Narrative Procedure Note Carmelo Santana MD - 05/18/2021 8:30 AM CDT ENDOSCOPY LAB Patient Name: Reid Ward Procedure Date: 05/18/2021 8:30 AM Admit Type: Outpatient Room: [facility] 8 Date of : 1940 Instrument Name: [id number] Gender: Male Note Status: Finalized Procedure: Colonoscopy Indications: High risk colon cancer surveillance: Personalhistory of colonic polyps, Last colonoscopy: March 2016 Providers: Carmelo Santana M.D. Referring MD: [place] Serrano M.D. Medicines: Propofol per Anesthesia Complications: No immediate complications. Estimated Blood Loss: Estimated blood loss: none. Procedure: Pre-Anesthesia Assessment: - Pre-procedure physical examination revealed no contraindications to sedation. - The risks and benefits of the procedure and the sedation options and risks were discussed with the patient. All questions were answered and informed consent was obtained. The benefits, risks and alternatives of theprocedure and sedation were discussed and informed consentwas obtained. All questions were answered. Please referto the signed informed consent document in the medical record. The colonoscopy was performed without difficulty. The patient tolerated the procedurewell. The quality of the bowel preparation was good. The quality of the bowel preparation was evaluatedusing the BBPS ([place] Bowel Preparation Scale) withscores of: Right Colon = 3 (entire mucosa seen well withno residual staining, small fragments of stool oropaque liquid), Transverse Colon = 3 (entire mucosa seenwell with no residual staining, small fragments of stoolor opaque liquid) and Left Colon = 3 (entire mucosaseen well with no residual staining, small fragments of stool or opaque liquid). The total BBPS scoreequals 9. The bowel preparation used was SUPREP via split dose instruction. Bowel prep was administered usinga split dose. Bowel prep was administered using asplit dose. The scope was passed under direct vision. The Colonoscope was introduced through the anus and advanced to the the cecum, identified byappendiceal orifice and ileocecal valve. Findings: Two sessile polyps were found in the ascending colon. The polyps were4 to 5 mm in size. These polyps were removed with a jumbo cold forceps. Resection and retrieval were complete. Internal hemorrhoids were found during retroflexion. Impression: - Two small polyps resected and retrieved. - Small hemorrhoids. Recommendation: - Await pathology results. - Repeat colonoscopy in 5 years for surveillance. Electronically signed by Carmelo Santana MD Carmelo Santana M.D. 05/18/2021 10:34:57 AM Number of Addenda: 0 Note Initiated On: 05/18/2021 8:30 AM Scope In: Scope Out: Carmelo Santana MD ENDOSCOPY PROCEDURES Final Result from Last 3 Months or Most Recently Relevant to Health Maintenance Insurance MEDICARE [employer] GENERIC [place] MEDICARE MEDICARE [place] MED[place]ARE COMMERCIAL GENERIC [place] MEDICARE [place] Advance Directives For more information, please contact: [phone] * Full Code (Latest Code Status on File) Date Activated Date Inactivated Comments 02/08/2025 9:21 AM 02/08/2025 3:22 PM * Full Code Date Activated Date Inactivated Comments 09/26/2023 6:55 PM 09/27/2023 4:39 PM Care Teams Donation Worker Relationship Specialty Start Date End Date [place] Serrano MD [address] [place] [address] [address] [place] [address] PCP - General 05/09/17 Nehemias Carrillo MD [address] [place] [address] [address] [place] [address] Referring Physician Cardiology 05/06/18 Kim Duong OT [address] [place] [address] [address] [place] [address] Occupational Therapist Occupational Therapy 03/19/19 Kayla Dye MD [address] [place] [address] [address] [place] [address] Surgeon Ophthalmology 05/14/19 Zaid Manjarrez MD PhD [address] [place] [address] Consulting Physician Neurology 01/06/21 Cheri Babin PA [address] [place] [address] Physician Vendor Management Associate Urology 07/19/21 Jaqueline Blake MD [address] [facility] [address] [place] [address] Medical Oncologist/Record Changer Assembler Medical Oncology 10/17/23 Bandar Ugarte MD [address] [facility] DEPT RADIATION ONCOLOGY, [place] [address] Radiation Oncologist Radiation Oncology 08/12/24 Kerrie Reyna MD [address] [facility], [facility] [address] [place] [address] Flatwork Catcher Dermatology 08/17/24 Santa Saleem NP [address] [facility] [address] [place] [address] Nurse Practitioner Nurse Practitioner 09/01/24
--- OUTSIDE RECORDS SUMMARY | 2025-03-05 16:41 | XMS_ITS | Encounter Summary ---
Author Organization [facility] Healthcare Address [address] [place] [address] Care Team Providers Care Commercial Baking Teacher Name Role Phone [place] Serrano MD Primary Care Provider [phone] Nehemias Carrillo MD Unavailable Kayla Dye MD Unavailable [phone] Nakita Lara MD Unavailable Kim Duong OT Unavailable Jh Monet MD Unavailable Geetha Higgins BARGE MASTER Unavailable [phone] Kayla Dye MD Unavailable [phone] Zaid Manjarrez MD PhD Unavailable Cheri Babin Unavailable Roxana Basurto MD Unavailable Damon Walsh MD Unavailable [phone] Jaqueline Blake MD Unavailable Santa Saleem BARGE MASTER Unavailable [phone] Bandar Ugarte MD Unavailable Kerrie Reyna MD Unavailable [phone] Santa Saleem BARGE MASTER Unavailable [phone] Encounter Details Date Type Department Care Team (Late st Contact Info) Description 02/01/2021 Telephone [facility] Radiology [address] [place] [address] Zaid Manjarrez MD PhD [address] [place] [address] Social History Tobacco Use Types Packs/Day Years Used Date Smoking Tobacco: Never Smokeless Tobacco: Never Alcohol Use Standard Drinks/Week Comments Yes 3 (1 standard drink = 0.6 oz pur e alcohol) PHQ-2 Answer Date Recorded PHQ-2 Total Score (If total score is 3 or more points, staff should administer the PHQ-9) 0 07/18/2020 Sex and Gender Information Value Date Recorded Sex Assigned at Not on file Legal Sex Male 12:19 AM CHUCKING AND SAWING MACHINE OPERATOR Gender Identity Male 11/02/2019 4:27 PM CHUCKING AND SAWING MACHINE OPERATOR Sexual Orientation Not on file documented as of this encounter Plan of Treatment Scheduled Procedures Name Priority Associated Diagnoses Date/Ti me ESOPHAGOGASTRODUODENOSCOPY Open Access 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) documented as of this encounter Visit Diagnoses Not on filedocumented in this encounter Additional Health Concerns Infection Onset Date Last Indicated Resolved Time COVID: Suspected 12/17/2023 12/17/2023 12/17/2023 6:22 PM CHUCKING AND SAWING MACHINE OPERATOR documented as of this encounter Care Teams Commercial Baking Teacher Relationship Specialty Start Date End Date [place] Serrano MD [address] [place], [place] [address]MALISSA HUI [address] [place] [address] PCP - General 05/09/17 Nehemias Carrillo MD [address] [place], [place] [address]MALISSA HUI [address] [place] [address] Referring Physician Cardiology 05/06/18 Kayla Dye MD [address] [place], [place] [address]M[address]ISSA HUI [address] [place] [address] Surgeon Ophthalmology 05/06/18 08/16/24 Nakita Lara MD [address] [place], [place] [address]M[place]ISSA HUI [address] [place] [address] Referring Physician Dermatology 05/06/18 08/16/24 Kim Duong OT [address] [place], [place] [address]ISSA HUI [address] [place] [address] Occupational Therapist Occupational Therapy 03/19/19 Jh Monet MD [address] [place], [place] [address]ISSA HUI [address] [place] [address] Surgeon Orthopedic Surgery 05/13/19 08/16/24 Geetha Higgins, ASHLEY [address] [place], [place] [address]MALISSA HUI [address] [place] [address] Nurse Practitioner Urology 05/14/19 08/16/24 Kayla Dye MD [address] [place], [place] [address]M[place]ISSA HUI [address] [place] [address] Surgeon Ophthalmology 05/14/19 Zaid Manjarrez MD PhD [address] [place] [address] Consulting Physician Neurology 01/06/21 Cheri Babin PA [address] [place] [address] Physician Mud Plant Operator Urology 07/19/21 [place] [address] [place] [address] [address] [place] [address] Medical Oncologist/Stemhole Borer Medical Oncology 08/03/21 08/16/24 Damon Walsh MD [address] [place] [address] Consulting Physician Urology 09/27/23 08/21/24 Jaqueline Blake MD [address] [place] [address] Medical Oncologist/Stemhole Borer Medical Oncology 10/17/23 Santa Saleem NP [address] [place] [address] Nurse Practitioner Nurse Practitioner 08/12/24 08/16/24 Bandar Ugarte MD [address] DEPT RADIATION ONCOLOGY, [place] [address] Radiation Oncologist Radiation Oncology 08/12/24 Kerrie Reyna MD [address] [facility] DERMATOLOG[facility], [facility] [address] [place] [address] Prenatal Genetic Counselor Dermatology 08/17/24 Santa Saleem NP [address] [facility] [address] [place] [address] Nurse Practitioner Nurse Practitioner 09/01/24 documented as of this encounter
--- OUTSIDE RECORDS SUMMARY | 2025-03-05 16:41 | XMS_ITS ---
Author Organization [facility] Address [address] [place] [address] Care Team Providers Care Shellfish Manager Name Role Phone River Serrano MD Primary Care Provider [phone] Nehemias Carrillo MD Unavailable [phone] Kim Duong OT Unavailable [phone] Kayla Dye MD Unavailable [phone] Zaid Manjarrez MD PhD Unavailable [phone] Cheri Babin Unavailable [phone] Jaqueline Blake MD Unavailable [phone] Bandar Ugarte MD Unavailable Kerrie Reyna MD Unavailable [phone] Santa Saleem NP Unavailable Active Problems Problem Noted Date Diagnosed Date [...] 08/12/2024 Assessment & Plan (08/17/2024 9:54 AM PAPER PRODUCTS MACHINE OPERATOR): Recent DX on biopsy 07/20/24. [place] 7 prostate cancer. Urology has referred him to [facility]. MRI prostate/pelvis 05/29/24: IMPRESSION: 1. A lesion in the left lateral peripheral zone at the mid gland is at very high suspicion for malignancy with an overall PI-RADS score of 5. No evidence of extraprostatic extension resulting in obstruction of both seminal vesicles. 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 He received his sixth cycle of treatment with single-agent Rituxan. He has completed 5 cycles of bendamustine with Rituxan. Bendamustine was discontinued for cycle 6 due to decreased creatinine clearance. Managed by [facility]. CT/PET 06/10/24: IMPRESSION: 1. Similar appearance [...] months. Assessment & Plan (08/17/2024 9:41 AM PAPER PRODUCTS MACHINE OPERATOR): CKD is unchanged. Regular aerobic exercise. Continue current medications. Renal condition will be reassessed in 6 months. 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 No cystoid macular edema (CME) or hemorrhage. Follow up 6 months Continue AREDS2 Assessment & Plan (08/20/2022 11:01 AM PAPER PRODUCTS MACHINE OPERATOR): Will follow up with [facility] as directed. Showed how to do amsler grid. Call if changes. Assessment & Plan (10/16/2021 9:39 AM PAPER PRODUCTS MACHINE OPERATOR): Bilateral pigmentary changes with deposits more consistent with pattern dystrophy > macular degeneration. No cystoid macular edema (CME) or hemorrhage. 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 Assessment & [...] been secondary to chronic kidney disease. -Mr Serna does not qualify for a diagnosis of MGUS based on the lab evaluation today. She will re-evaluate him in 6 months. Age-related nuclear cataract of right eye 2019 Assessment & Plan (08/26/2023 10:57 AM PAPER PRODUCTS MACHINE OPERATOR): Not visually significant. Do not recommend surgery at this time. Continue to monitor. Patient to call if problems with activities of daily living. Assessment & Plan (08/20/2022 9:25 AM PAPER PRODUCTS MACHINE OPERATOR): Not visually significant. Do not recommend surgery [...] Left Assessment & Plan (08/26/2023 9:52 AM PAPER PRODUCTS MACHINE OPERATOR): 07/27/2020- EXTRACTION CATARACT - PHACOEMULSIFICATION AND LENS IMPLANT - complex - left eye - Left Implants in good position. Vision stable PCO left eye (OS) not vis Assessment & Plan (08/20/2022 9:26 AM PAPER PRODUCTS MACHINE OPERATOR): 07/27/2020- EXTRACTION CATARACT - PHACOEMULSIFICATION AND LENS [...] 06/23/2018 Assessment & Plan (08/26/2023 9:51 AM PAPER PRODUCTS MACHINE OPERATOR): Noted sl decrease in BCVA left eye (OS) Suspect mac degen related, but no active disease No FHx Will start to involve retina in care; Call if changes in amsler grid Assessment & Plan (08/20/2022 9:25 AM PAPER PRODUCTS MACHINE OPERATOR): Noted sl decrease in BCVA left eye [...] 06/23/2018 Assessment & Plan (08/26/2023 9:52 AM PAPER PRODUCTS MACHINE OPERATOR): Recommend increase lubricant eye drops to 4 [...] appointment. Assessment & Plan (08/17/2024 9:40 AM PAPER PRODUCTS MACHINE OPERATOR): Hypertension is stable Continue current treatment regimen. [...] ACEI. Assessment & Plan (11/17/2018 9:49 AM PAPER PRODUCTS MACHINE OPERATOR): Hypertension is over controlled. Regular aerobic exercise. Medication changes per orders. Ambulatory blood pressure monitoring. Decrease lisinopril to 20 mg QD Blood pressure will be reassessed in 3 months. Assessment & Plan (05/12/2018 9:59 AM CDT): Controlled. Continue current regimen. HSV-1 (herpes simplex virus 1) infection 017 Seasonal allergic rhinitis 05/07/2016 Hyperlipidemia 11/07/2015 Overview (05/12/2018): Assessment & Plan (08/17/2024 9:40 AM PAPER PRODUCTS MACHINE OPERATOR): I discussed ASCVD risk. I spent 15 [...] [place] BPH with medication. We discussed options. [place] of medication for overactive bladder. Refer to [...] step would be to discuss with his reformatory attendant and consider switching the metoprolol to propranolol. [...] genetic testing and it would not necessarily change management director. He has mild gait imbalance and would [...] genetic testing and it would not necessarily change management director. His prior MRI Brain: notable for mild-moderate [...] excessive daytime sleepiness as reflected by borderline [place] of 10. Global PSQI score of 0 [...] genetic testing and it would not necessarily change management director. His prior MRI Brain: notable for mild-moderate [...] services. Assessment & Plan (10/18/2020 8:46 PM PAPER PRODUCTS MACHINE OPERATOR): He has a 15 year history of [...] and urine immunofixation. 3. EMG/NCS (here at [facility]) for evaluation of neuropathy. 4. refer to PT. 5. continue daily exercises and stretching. Chronic coronary artery disease 04/12/2013 Overview (05/12/2018): Assessment & Plan (08/17/2024 9:57 AM PAPER PRODUCTS MACHINE OPERATOR): Coronary artery disease is asymptomatic. . Continue current treatment regimen. Regular aerobic exercise. Continue current medications. Cardiac status will be reassessed in 1 year. Stress ECHO 5/13/22: Impression: 1. Maximal Exercise Stress Echocardiogram, NEGATIVE [...] 03/10/2013 Assessment & Plan (08/17/2024 9:39 AM PAPER PRODUCTS MACHINE OPERATOR): Up to date on colonoscopy Assessment & Plan (08/12/2023 1:22 PM CDT): Up to date on colonoscopy Assessment & Plan (07/22/2022 10:43 AM CDT): Up to date on colonoscopy Current Treatment and Therapy Plans Eligard Injection - 45 mg every 24 weeks* Plan Start Date:09/27/2024 Plan Provider:Bandar Ugarte MD Linked Problems Prostate cancer (HCC) Treatment Medications leuprolide acetate (6 month) (ELIGARD) IV Maintenance Therapy Plan* Plan Start Date:02/19/2024 Plan Provider:Jaqueline Blake MD Linked Problems 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) Treatment Medications No medications scheduled. Past Treatment and Therapy Plans Oncology Chemotherapy Treatment Plan Name Start Date Discontinue Date Treatment Medications Discontinue Reason Plan Provider Cycles Bendamustine / RiTUXimab 28 day cycles - CLL/SLL 12/25/19 24 06/10/2024 bendamustine (BENDEKA) IVPB in 50 mLdexAMETHasone (DECADRON)riTUXim ab-abbs (TRUXIMA) IVPB in 500 mL Therapy Complete Jaqueline Blake MD 6 of 6 cycles completed [id number] - [facility] - Lymphoma - [id number] - Mosunetuzumab / Polatuzumab Vedotin 11/07/19 24 12/25/2023 INV-[facility] (147/ML43 487) polatuzumab vedotin [facility]PB [facility] [id number] (Mosunetuzumab) (147/ML43 487)[facility] polatuzumab vedotin (147/ML43 487) Progressive Disease Jaqueline Blake MD 2 of 11 cycles completed Radiation Treatments * Course [id number]/15/2024 - 11/26/2024 Treatment Period Energy Fraction Dose Fractions Total Dose Plans Planned PROST BST 11/24/2024 - 11/26/2024 250 3 / 750 PELVIS 10/15/2024 - 11/23/2024 250 25 / 6,250 Reference Points Delivered PROST BST 11/24/2024 - 11/26/2024 750 PELVIS 10/15/2024 - 11/23/2024 6,250 Lifetime Dose Tracking * Chemical Lifetime Dose Automatic Entry Manual Entr y Fluoro Time 3.1 minutes 3.1 minutes 0 minutes Air kerma at the reference point (Ka,r) 34.9 mGy 3 4.9 mGy 0 mGy DLP 1,038 mGycm 1,038 mGycm 0 mGycm Resolved Problems Problem Noted Date Diagnosed Date [...] (01/15/2019): Added automatically from request for surgery [id number]
--- OUTSIDE RECORDS SUMMARY | 2025-03-05 16:42 | XMS_ITS | Clinical Summary ---
Author Organization [facility] Address [address] [place] [address] Care Team Providers Care Guard Lieutenant Name Role Phone River Serrano MD Primary Care Provider [phone] Nehemias Carrillo MD Unavailable [phone] Kim Duong OT Unavailable Kayla Dye MD Unavailable [phone] Zaid Manjarrez MD PhD Unavailable [phone] hCeri Babin Unavailable Jaqueline Blake MD Unavailable Bandar Ugarte MD Unavailable Kerrie Reyna MD Unavailable [phone] Santa Saleem NP Unavailable Allergies Active Allergy Reactions Criticality Noted Date [...] needed for allergies or rhinitis Active vit C,I-Jw-tncuz-l camillezeaxan 250-90-40-1 mg capsuleIndicat ions:eye vitamin Take 1 [...] by mouth daily 30 tablet 11 01/05/20 025 Discontinued(A lternate therapy) Active Problems Problem [...] 08/12/2024 Assessment & Plan (08/17/2024 9:54 AM ACTING INSTRUCTOR): Recent DX on biopsy 07/20/24. Migel 7 prostate cancer. Urology has referred him to [facility]. MRI prostate/pelvis 05/29/24: IMPRESSION: 1. A lesion in the left lateral peripheral zone at the mid gland is at very high suspicion for malignancy with an overall PI-RADS score of 5. No evidence of extraprostatic extension resulting in obstruction of both seminal vesicles. 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 He received his sixth cycle of treatment with single-agent Rituxan. He has completed 5 cycles of bendamustine with Rituxan. Bendamustine was discontinued for cycle 6 due to decreased creatinine clearance. Managed by [facility]. CT/PET 06/10/24: IMPRESSION: 1. Similar appearance [...] months. Assessment & Plan (08/17/2024 9:41 AM ACTING INSTRUCTOR): CKD is unchanged. Regular aerobic exercise. Continue current medications. Renal condition will be reassessed in 6 months. 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 No cystoid macular edema (CME) or hemorrhage. Follow up 6 months Continue AREDS2 Assessment & Plan (08/20/2022 11:01 AM ACTING INSTRUCTOR): Will follow up with KPiggot as directed. Showed how to do amsler grid. Call if changes. Assessment & Plan (10/16/2021 9:39 AM ACTING INSTRUCTOR): Bilateral pigmentary changes with deposits more consistent with pattern dystrophy > macular degeneration. No cystoid macular edema (CME) or hemorrhage. 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 Assessment & Plan (07/22/2022 10:41 AM CDT): [...] 2019 Assessment & Plan (08/26/2023 10:57 AM ACTING INSTRUCTOR): Not visually significant. Do not recommend surgery at this time. Continue to monitor. Patient to call if problems with activities of daily living. Assessment & Plan (08/20/2022 9:25 AM ACTING INSTRUCTOR): Not visually significant. Do not recommend surgery [...] Left Assessment & Plan (08/26/2023 9:52 AM ACTING INSTRUCTOR): 07/27/2020- EXTRACTION CATARACT - PHACOEMULSIFICATION AND LENS IMPLANT - complex - left eye - Left Implants in good position. Vision stable PCO left eye (OS) not vis Assessment & Plan (08/20/2022 9:26 AM ACTING INSTRUCTOR): 07/27/2020- EXTRACTION CATARACT - PHACOEMULSIFICATION AND LENS [...] 06/23/2018 Assessment & Plan (08/26/2023 9:51 AM ACTING INSTRUCTOR): Noted sl decrease in BCVA left eye (OS) Suspect mac degen related, but no active disease No FHx Will start to involve retina in care; Call if changes in amsler grid Assessment & Plan (08/20/2022 9:25 AM ACTING INSTRUCTOR): Noted sl decrease in BCVA left eye [...] 06/23/2018 Assessment & Plan (08/26/2023 9:52 AM ACTING INSTRUCTOR): Recommend increase lubricant eye drops to 4 [...] appointment. Assessment & Plan (08/17/2024 9:40 AM ACTING INSTRUCTOR): Hypertension is stable Continue current treatment regimen. [...] ACEI. Assessment & Plan (11/17/2018 9:49 AM ACTING INSTRUCTOR): Hypertension is over controlled. Regular aerobic exercise. Medication changes per orders. Ambulatory blood pressure monitoring. Decrease lisinopril to 20 mg QD Blood pressure will be reassessed in 3 months. Assessment & Plan (05/12/2018 9:59 AM CDT): Controlled. Continue current regimen. HSV-1 (herpes simplex virus 1) infection 017 Seasonal allergic rhinitis 05/07/2016 Hyperlipidemia 11/07/2015 Overview (05/12/2018): Assessment & Plan (08/17/2024 9:40 AM ACTING INSTRUCTOR): I discussed ASCVD risk. I spent 15 [...] TX BPH with medication. We discussed options. [place] of medication for overactive bladder. Refer to [...] step would be to discuss with his repairer kiln car and consider switching the metoprolol to propranolol. [...] genetic testing and it would not necessarily exchange clerk. He has mild gait imbalance and would [...] genetic testing and it would not necessarily exchange clerk. His prior MRI Brain: notable for mild-moderate [...] excessive daytime sleepiness as reflected by borderline Edgard of 10. Global PSQI score of 0 [...] genetic testing and it would not necessarily exchange clerk. His prior MRI Brain: notable for mild-moderate [...] services. Assessment & Plan (10/18/2020 8:46 PM ACTING INSTRUCTOR): He has a 15 year history of [...] and urine immunofixation. 3. EMG/NCS (here at [facility]) for evaluation of neuropathy. 4. refer to PT. 5. continue daily exercises and stretching. Chronic coronary artery disease 04/12/2013 Overview (05/12/2018): Assessment & Plan (08/17/2024 9:57 AM ACTING INSTRUCTOR): Coronary artery disease is asymptomatic. . Continue [...] 03/10/2013 Assessment & Plan (08/17/2024 9:39 AM ACTING INSTRUCTOR): Up to date on colonoscopy Assessment & [...] (01/15/2019): Added automatically from request for surgery [id number] Encounters Date Type Department Care Team Description 5 11:00 AM CDT Office Visit [facility] Advanced Medicine Radiation Oncology [address] [facility] [place] [address] Santa Saleem NP Prostate cancer (HCC) (Primary Dx); Encounter for follow-up surveillance of prostate cancer; Encounter for monitoring androgen deprivation therapy; Decreased strength; Balance problem 5 Results Follow-Up Cardiology Nehemias Carrillo MD Pro B-type natriuretic peptide 5 1:40 PM CDT Lab [facility] [address] [place] [address] Shortness of breath 5 1:00 PM CDT Office Visit [facility] Cardiology [address] [facility] [address] [place] [address] Nehemias Carrillo MD Chronic coronary artery disease (Primary Dx); Shortness of breath; Essential hypertension 5 10:00 AM CDT Office Visit [address] [place] [address] River Serrano MD Primary hypertension (Primary Dx); Stage 3b chronic kidney disease (HCC); Esophagitis 5 Documentation [facility] Oncology [address] [facility] Floor 6 [place] [address] Ayaan Dorantes MD 5 10:00 AM CDT - 5 10:30 AM CDT Surgery [facility] [address] [facility] [address] [place] [address] Rayo Estrella MD ESOPHAGOGASTRODUODENOSCOPY 5 9:47 AM CDT Anesthesia Event [facility] [place] [address] [place] [address] Wandy Ureña MD McKinney, Kenya W., CHILD WELFARE SPECIALIST 5 9:03 AM CDT - 5 11:05 AM CDT Hospital Encounter [facility] [place] [address] [place] [address] Rayo Estrella MD Discharge Disposition: Discharge to home or self care 5 4:21 PM CDT - 5 11:59 PM CDT Hospital Encounter [address] [address] Prostate CA (HCC) Discharge Disposition: Discharge to home or self care 5 10:15 AM CDT Lab [facility] Outpatient Lab at [address] [address] Hyperlipidemia (Primary Dx); Hypertension 5 Telephone [facility] Specialty Services [address] [place] [phone] Lou Ballesteros, JOSE MARIA GI Preprocedure 5 Telephone [facility] Specialty Services [address] [place] [phone] Mary Ann Malave, JOSE MARIA 5 Orders Only [facility] Oncology [address] [facility] Floor 6 [place] [address] Lynette Ruelas 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) (Primary Dx) 5 1:00 PM CDT Therapy [facility] [address] [facility] [place] [phone] Aspiration into respiratory tract, initial encounter (Primary Dx) 5 12:43 PM CDT - 5 11:59 PM CDT Hospital Encounter [facility] [address] [place] [address] Aspiration into respiratory tract, initial encounter Discharge Disposition: Discharge to home or self care 5 Plan of Care Documentation [facility] [address] [place] [address] 5 1:40 PM CDT Office Visit [facility] Advanced Medicine [facility]) - [facility] Urology [address] [facility] 11th [place] [address] [place] [address] Will Barkley NP Urgency of urination (Primary Dx); Benign prostatic hyperplasia with urinary obstruction; Prostate cancer (HCC); Nocturia; Urinary frequency 5 10:00 AM CDT Office Visit [facility] Ophthalmology [address] [facility] 6th [place] [phone] Gabi Segura MD PhD Macular pattern dystrophy (Primary Dx) 5 Telephone [facility] Oncology [address] [place] [address] Floor 6 [place] [phone] Lynette Ruelas 5 9:59 AM CDT - 5 11:59 PM CDT Hospital Encounter [facility] Pulmonary [address] [facility] [address] [place] [address] 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; Aspiration into respiratory tract, initial encounter Discharge Disposition: Discharge to home or self care 5 Documentation [facility] Oncology [address] [place] [address] Floor 6 [place] [address] January, A 5 10:30 AM ACTING INSTRUCTOR Office Visit [facility] Oncology [address] [place] [address] Floor 6 [place] [address] 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 (Primary Dx); Aspiration into respiratory tract, initial encounter 5 9:30 AM ACTING INSTRUCTOR Lab [facility] Oncology Lab [address] [place] [address] Floor 6 [place] [address] 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 5 8:15 AM ACTING INSTRUCTOR Lab [facility] [address] Floor 6 [place] [address] 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 5 7:37 AM ACTING INSTRUCTOR - 5 11:59 PM ACTING INSTRUCTOR Hospital Encounter [facility] [place] [address] 8 [place] [address] 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 Discharge Disposition: Discharge to home or self care 5 Documentation [facility] Oncology [facility] [facility] Floor 6 [place] [phone] January, A Appointment from Last 3 Months Immunizations Immunization Administration Dates Next Due Influenza, [...] 09/16/2024 ZOSTER LIVE 07/03/2009,07/03/2009,12/31/2008 ZOSTER Recombinant 11/18/2019,09/06/2019 Surgical History Surgery Date Site/Laterality Comments TONSILLECTOMY 10/13/1994 - 10/12/1995 Tonsillectomy TOE FUSION 10/13/2006 - 10/12/2007 s/p L great toe fusion ELBOW SURGERY 10/13/1952 - 10/12/1953 Left CORONARY ANGIOPLASTY WITH STENT PLACEMENT 04/12/2013 CHANO to mid LAD RIB FRACTURE SURGERY 10/13/2013 - 10/12/2014 4 broken ribs and collapsed right lung HAND SURGERY 01/11/2019 - 02/09/2019 Right right flexor digitorum superficialis ring to extensor pollicis longus transfer CATARACT EXTRACTION 07/27/2020 Left COLON BIOPSY 05/18/2021 RENAL BIOPSY 09/26/2023 Left COLONOSCOPY Medical History Medical History Date Comments Wrist fracture, right 1998 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 Posterior vitreous detachment, right eye - (Added by TW Conv) Cataract early stages - b ilaterally Collapsed lung 2014 s/p right chest tube; fell off side of truck, s/p 4 broken ribs, Macular degeneration early stage Sleep apnea Rbbb IFG (impaired fasting glucose) 02/13/2021 MGUS (monoclonal gammopathy of unknown significance) 07/19/2021 Age-related nuclear cataract of right eye 08/08/2020 Left renal mass Cancer (HCC) Chronic kidney disease Prostate cancer (HCC) Lymphoma (HCC) Colon polyp Family History Medical History Relation Name Comments Heart failure Father Willie Ward Hypertension Father Wlilie Ward Stroke Father Willie Ward Diabetes Mother Mary Ann Ward Heart failure Mother Mary Ann Ward Lung cancer Mother Mary Ann Ward Lung disease Mother Mary Ann Ward Parkinsonism Mother Mary Ann Ward Tremor Mother Mary Ann Ward Anesthesia problems Neg Hx Relation Name Status Comments Brother Alive Father Willie Kareem (Age 74) Mother Mary Ann Ward (Age 81) Sister Alive Social History Tobacco Use Types Packs/Day Years [...] on file Legal Sex Male 12:19 AM ACTING INSTRUCTOR Gender Identity Male 11/02/2019 4:27 PM ACTING INSTRUCTOR Sexual Orientation Not on file Obstetrics History Last Filed Vital Signs Vital Sign Reading [...] of extranodal and solid organ sites (HCC) Health Maintenance Due Date Last Done Comments Covid-19 Vaccine (2023-2 5 season) 2024 07/02/2022, 07/13/2021, 12/04/2020, Additional history exists Depression Screening 08/17/2025 08/17/2024, 08/12/2023, 05/13/2023, Additional history exists Well Visit 65+ 08/17/2025 08/17/2024, 07/15, 07/22/2022, Additional history exists Fall Risk Assessment 02/08/2026 02/08/2025, 08/17/2024, 08/12/2023, Additional history exists Colon Cancer Screening-Colonoscopy 05/18/2026 05/18/2021, 03/27/2016 DTaP/Tdap/Td Vaccine (2 - Td or Tdap) 09/16/2034 09/16/2024, 01/22/2014, 07/23/2010, Additional history exists Zoster Vaccine Completed 11/18/2019, 08/14, 07/03/2009, Additional history exists Pneumococcal vaccine 65+ Completed 020, 06/01/2017, 07/21/2008 Colon Cancer Screening-CT Colonography Discontinued 05/18/2021, 03/27/2016 Colon Cancer Screening-DNA Stool Discontinued 05/18/20 21, 03/27/2016 Colon Cancer Screening-FIT Discontinued 05/18/2021, Colon Cancer Screening-Sigmoidoscopy Discontinued 05/18/2021, 03/27/2016 Hepatitis B Screening Completed 10/30/2023 Influenza Vaccine Completed 09/16/2024, , 07/22/2022, Additional history exists Medical Devices Implanted Type Area Customer Pricing Manager Device Identifier Shelf Expiration Date Model / Serial / Lot Everolimus-Elutin g Piarinum Chromium Coronary Stent N/A: Heart [employer] [id number] Acrysof Iq Stableforce Ultrasert Tensionglide 6mm 13mm Aspheric - [id number] - [id number] Implanted:Qty: 1 on 07/27/2020 by Kayla Dye MD at [facility] [email or web address] 05/12/2021 [id number] / [id number] / Procedures Procedure Name Priority Date/Time [...] pattern dystrophy PULMONARY FUNCTION TEST (PFT) Routine 10:41 AM CDT 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 Aspiration into respiratory tract, initial encounter PROTEIN ELECTROPHORESIS, WIT H REFLEX, SERUM Routine 12/16/2024 9:36 AM ACTING INSTRUCTOR 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 IMMUNOGLOBULIN FREE LIGHT CHAINS Routine 12/16/2024 9:36 AM ACTING INSTRUCTOR 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 IMMUNOFIXATION, URINE Routine 12/16/2024 9:06 AM ACTING INSTRUCTOR 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 EGFR Routine 12/16/2024 8:35 AM ACTING INSTRUCTOR 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 MANUAL DIFFERENTIAL Routine 12/16/2024 8:35 AM ACTING INSTRUCTOR 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 CBC WITH AUTO DIFFERENTIAL Routine 12/16 8:35 AM ACTING INSTRUCTOR 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 2006:27:330-337. 2. Rupal RW, Lester HYLTON. J. AM Brent Cardiol: Cardiovasc Imag. 2009;2: 216- 225. Interpretive Data Last Revised Date: 2018. Blood 2025 1:52 PM CDT 2025 2:56 PM CDT us Nehemias Carrillo MD LAB BLOOD ORDERABLES Final Re sult [facility] [address] [facility]. Department [place] [address] * EGD (02/08/2025 9:27 AM CDT) Anatomical Region Laterality Modality Other Narrative Procedure Note Rayo Estrella MD - 02/08/2025 9:27 AM CDT GI ENDOSCOPY [facility] Patient Name: Sarah Ward Procedure Date: 02/08/2025 9:27 AM Date of : 1940 Admit Type: Outpatient Age: 84 Gender: Male Attending MD: Rayo Mitchell M.D. Room: [facility] ENDOSCOPY ROOM 1 Note Status: Finalized [...] passed under direct vision. The GIF [id number] endoscope was introducedthrough the mouth, and advanced [...] following this procedure please call my officeat [phone] ([phone]) to speak to my nurses. After hours and evenings please call [phone] speak to the GI fellow diamond sizer and sorter. Please tell themthat Dr. Mitchell did your procedure and that your were instructed to have the fellow call me or thephysician covering for me to discuss the management of your condition. If you have an urgent problem, please goto the nearest emergency room and have the ER doctorcall my office during the day or [facility] transfer ([phone]) center after hours and weekends to arrange admission or transfer to our facility. Attending Participation: I was present and participated during the entire procedure, including non-coffey portions. Electronically signed by Rayo Mitchell MD Rayo Mitchell M.D. 02/08/2025 10:23:47 AM . Number of Addenda: 0 Note Initiated On: 02/08/2025 9:27 AM Rayo Mitchell MD ENDOSCOPY PROCEDURES Final Result * (ABNORMAL) Total testosterone (02/07/2025 12:00 PM CDT) Pathologist [facility] Testosterone <3(L) 193 - 740 ng/dL Blood 02/07/2025 12:0 0 PM CDT 02/07/2025 4:50 PM CDT us Santa Saleem NP LAB BLOOD ORDERABLES F inal Result FITZ [address] [address] Department of [place] [address] * PSA diagnostic (02/07/2025 12:00 PM CDT) [...] 0 PM CDT 02/07/2025 4:50 PM CDT [facility] Ximena Harper DOMESTIC TECHNICIAN LAB BLOOD ORDERABLES F inal Result [facility] [place] [address] [address] Department [place] [address] * FL Modified Barium Swallow W Video [...] it. Electronically signed by: Jh Dye M.D. Narrative 01/26/2025 3:29 PM CDT EXAMINATION: MODIFIED BARIUM [...] it. Electronically signed by: Jh Dye M.D. us Jaqueline Blake MD IMG FLUOROSCOPY PROCEDURES Final Result * Measure post void residual (01/04/2025 1:49 PM CDT) Narrative Anat Dunn, JOSE MARIA - 01/04/2025 1:49 PM CDT Measurement of Post-voiding residual urine and/or bladder capacity by ultrasound, non-imaging. PVR= 1 mL us Will Barkley DOMESTIC TECHNICIAN NURSING ASSESSMENTS Fi nal Result * [...] 10:41 AM CDT) FVC PRE 3.28 L [facility] FVC %PRE PRED 96 % [facility] FEV1 PRE 2.52 L [facility] FEV1 %PRE PRED 101 % [facility] FEV1/FVC PRE 76.8 % [facility] FRC PL PRE 3.[address] [facility] FRC PL %PRE PRED 97 % [facility] RV PRE 2.12 L [facility] RV %PRE PRED 80 % [facility] TLC PRE 5.48 L [facility] TLC %PRE PRED 82 % [facility] DLCO PRE 11.8 ml/min/mmH g [facility] DLCO %PRE PRED 52 % [facility] Anatomical Region Laterality Modality PFT 12/27/2024 10:0 9 AM CDT Narrative 12/27/2024 4:24 PM CDT Table formatting from the original result was not included. [facility] Division of Pulmonary & Critical Care Medicine [address] [place] [address]; [place] [facility]; [place] [address]; [phone] Pulmonary Function Laboratory Pulmonary Stress Test Simple/Oxygen Assessment Patient: Sarah Ward Date: 12/27/2024 : 1940 Ht: 68 [...] Work [distance (m) x body wt (kg)]: 93195 kg.m (normal >60,000kg.m) Oxygen required to maintain [...] with the written final report. PFT performed at:->[facility] Adult PFT Lab- [facility]-8D Procedure:->Pulse Ox [...] and %HbO2 is age dependent. However, the [facility] Pulmonary Function Laboratory defines hypoxemia as a PaO2 <56 mm Hg or a %HbO2 <89%. Starting on October of 2024 the [facility] Pulmonary Function Laboratory utilizes race neutral GLI Global normative equations. us Jaqueline Blake MD PFT ORDERABLES Final Resu lt * Immunoglobulin free light chains (12/16/2024 9:36 AM ACTING INSTRUCTOR) [place]/Lambda ratio [facility] 1.35 0.26 - 1.65 Comment: Interpretive Data The Binding Site FreeLite assay procedure was used. Results from different manufacturers or methods may not be comparable. Serial testing should be performed using the same methods and instrumentation. Current Interpretive Data was last revised on 2023. [place] free light chain [facility] 1.65 0.33 - 1.94 mg/dL [facility] Comment: Interpretive Data The Binding Site FreeLite assay procedure was used. Results from different manufacturers or methods may not be comparable. Serial testing should be performed using the same methods and instrumentation. Current Interpretive Data was last revised on 2023. Lambda free light chain [facility] 1.22 0.57 - 2.63 mg/dL [facility] Comment: Interpretive Data The Binding Site FreeLite assay procedure was used. Results from different manufacturers or methods may not be comparable. Serial testing should be performed using the same methods and instrumentation. Current Interpretive Data was last revised on 2023. Blood 12/16/2024 9:36 AM ACTING INSTRUCTOR 12/16/2024 10:42 AM ACTING INSTRUCTOR us Jaqueline Blake MD LAB BLOOD ORDERABLES Final Result [facility] Department [place] [address] * Protein electrophoresis with reflex, serum with interpretation (12/16/2024 9:36 AM ACTING INSTRUCTOR) [facility] Protein, sr 6.2 6.2 - 8.2 g/dL Albumin 4.0 3.2 - 5.0 g/dL [facility] Alpha-1 globulin 0.3 0.2 - 0.4 g/dL [facility] Alpha-2 globulin 0.7 0.5 - 1.0 g/dL [facility] Beta-1 globulin 0.4 0.3 - 0.6 g/dL [facility] Beta-2 globulin 0.2 0.2 - 0.6 g/dL [facility] Gamma globulin 0.6 0.5 - 1.7 g/dL [facility] SPEP interp Please see comment FITZ [facility] Comment: No apparent monoclonal peak Electrophoretic pattern appears similar to previous sample 06/11/2024 Reviewed and signed by Roxanne Ivy MD, PhD 12/17/2024 Blood 12/16/2024 9:36 AM ACTING INSTRUCTOR 12/16/2024 10:42 AM ACTING INSTRUCTOR Jaqueline Blake MD LAB BLOOD ORDERABLES Final Result Performing Organization Address City/[facility] Co de Phone Number [facility] Department [place] [address] * Immunofixation, urine with interpretation (12/16/2024 9:06 AM ACTING INSTRUCTOR) Immunofixation, Ur Please see comment Comment: NO PARAPROTEIN DETECTED Reviewed and signed by Roxanne Ivy MD, PhD 12/17/2024 Urine 12/16/2024 9:06 AM ACTING INSTRUCTOR 12/16/2024 9:28 AM ACTING INSTRUCTOR us Jaqueline Blake MD LAB URINE ORDERABLES Final Result Performing Organization Address [facility] de Phone Number [facility] Department [place] [address] * (ABNORMAL) eGFR (12/16/2024 8:35 AM ACTING INSTRUCTOR) eGFR 44(L) >=60 mL/min/1. 73 m2 Comment: [...] Inclusion of Race in Diagnosing Kidney Disease, SHAHRIARSN 2020). The CKD-EPI equation should not be used for patients with unstable renal function and has not been validated in children and those over 70. Current interpretive data was last reviewed 2021. Blood 12/16/2024 8:35 AM ACTING INSTRUCTOR 12/16/2024 8:45 AM ACTING INSTRUCTOR Jaqueline Blake MD LAB BLOOD ORDERABLES Final Result [facility] Department [place] [address] * (ABNORMAL) CBC with auto differential (12/16/2024 8:35 AM ACTING INSTRUCTOR) WBC 2.3(L) 3.8 - 9.9 K/cumm Comment:Testing performed by : [facility], [address] [place] [address] Hgb 10.3(L) 13.0 - 17.5 g/dL CERCHOCO BJ Comment:Testing performed by : [facility], [address] [place] [address] Hct 29.9(L) 38.9 - 50.3 % CERCHOCO BJ Comment:Testing performed by : [facility], [address] [place] [address] Plt 158 150 - 400 K/cumm CERCHOC[facility] BJ Comment:Testing performed by : [facility], [address] [place] [address] MPV 8.7 6.8 - 10.4 fL [facility]ER[facility]J Comment:Testing performed by : [facility], [address] [place] [address] RBC 2.88(L) 4.30 - 5.80 M/cumm CERCH[facility]O BJ Comment:Testing performed by : [facility], [address] [place] [address] MCV 103.8(H) 81.3 - 96.4 fL [facility]ER[facility] BJ Comment:Testing performed by : [facility], [address] [place], [place] [phone] MCH 35.7(H) 27.1 - 33.3 pg [facility]Z [facility]I Comment:Testing performed by : [facility], [address] [place] [address] MCHC 34.4 32.3 - 35.7 g/dL [facility]I Comment:Testing performed by : [facility], [address] [place] [address] RDW CV 13.5 11.1 - 14.9 % [facility] Comment:Testing performed by : [facility], [address] [place], [place] [phone] NRBC abs 0.00 0.00 - 0.01 K/cumm [facility]I Comment:Testing performed by : [facility], [address] [place] [address] Blood 12/16/2024 8:35 AM ACTING INSTRUCTOR 12/16/2024 8:42 AM ACTING INSTRUCTOR us Jaqueline Blake MD LAB BLOOD ORDERABLES Edite d Result - Final [facility] Department of Laboratories [place], [place] [id number] * (ABNORMAL) Manual Differential (12/16/2024 8:35 AM ACTING INSTRUCTOR) Cells Counted 100 Comment:Testing performed by : [facility], [address] [place] [address] Neutrophil abs 1.3(L) 1.5 - 6.5 K/cumm FITZ CHOI Comment:Testing performed by : [facility], [address] [place] [address] Lymphocyte abs 0.4(L) 0.8 - 3.3 K/cumm [facility] CHOI Comment:Testing performed by : [facility], [address] [place] [address] Monocyte abs 0.4 0.2 - 0.8 K/cumm [facility] Comment:Testing performed by : [facility], [address] [place] [phone] Eosinophil abs 0.2 0.0 - 0.5 K/cumm [facility] Comment:Testing performed by : [facility], [address] [place] [phone] Basophil abs 0.0 0.0 - 0.1 K/cumm [facility] Comment:Testing performed by : [facility], [address] [place] [phone] Neutrophil pct 57.0 % [facility] Comment: Interpretive Data Percent cell count reference ranges are not reported, since discordance with absolute values may lead to misinterpretation of CBC data. Current Interpretive Data was last revised on 2018. Testing performed by: [facility], [address] [place] [phone] Lymphocyte pct 17.0 % [facility] Comment: Interpretive Data Percent cell count reference ranges are not reported, since discordance with absolute values may lead to misinterpretation of CBC data. Current Interpretive Data was last revised on 2018. Testing performed by: [facility], [address] [place] [phone] Monocyte pct 17.0 % [facility] Comment: Interpretive Data Percent cell count reference ranges are not reported, since discordance with absolute values may lead to misinterpretation of CBC data. Current Interpretive Data was last revised on 2018. Testing performed by: [facility], [address] [place] [phone] Eosinophil pct 8.0 % [facility] Comment: Interpretive Data Percent cell count reference ranges are not reported, since discordance with absolute values may lead to misinterpretation of CBC data. Current Interpretive Data was last revised on 2018. Testing performed by: [facility], [address] [place] [phone] Basophil pct 0.0 % [facility] Comment: Interpretive Data Percent cell count reference ranges are not reported, since discordance with absolute values may lead to misinterpretation of CBC data. Current Interpretive Data was last revised on 2018. Testing performed by: [facility], [address] [place] [address] Variant lymph pct 1.0(H) 0.0 - 0.0 % [facility] Comment:Testing performed by : [facility], [address] [place] [address] Polychromasia 1+(A) [facility] Comment:Testing performed by : [facility], [address] [place] [address] Poikilocytosis 1+(A) [facility] Comment:Testing performed by : [facility], [address] [place] [address] Macrocytes 1+(A) [facility] Comment:Testing performed by : [facility], [address] [place] [address] Elliptocytes 1+(A) [facility] Comment:Testing performed by : [facility], [address] [place] [address] Platelet estimate Adequate [facility] Comment:Testing performed by : [facility], [address] [place] [address] Blood 12/16/2024 8:35 AM ACTING INSTRUCTOR 12/16/2024 8:42 AM ACTING INSTRUCTOR Jaqueline Blake MD LAB BLOOD ORDERABLES Edite d Result - Final Performing Organization Address City/[facility] Co de Phone Number [facility] Department [place] [address] * Lactate dehydrogenase (LD) (12/16/2024 8:35 AM ACTING INSTRUCTOR) Lactate dehydrogenase (LDH) 240 100 - 250 Units/L Blood 12/16/2024 8:35 AM ACTING INSTRUCTOR 12/16/2024 8:45 AM ACTING INSTRUCTOR Jaqueline Blake MD LAB BLOOD ORDERABLES Final Result Performing Organization Address City/[facility] Co de Phone Number [facility] Department [place] [address] * (ABNORMAL) Comprehensive metabolic panel (12/16/2024 8:35 AM ACTING INSTRUCTOR) Sodium 143 135 - 145 mmol/L Potassium, pl 4.5 3.3 - 4.9 mmol/L [facility] Chloride 112(H) 97 - 110 mmol/L [facility] CO2 23 22 - 32 mmol/L [facility] Anion gap 8 2 - 15 mmol/L [facility] BUN 35(H) 6 - 25 mg/dL [facility] Creatinine 1.56(H) 0.80 - 1.30 mg/dL [facility] Glucose 105 70 - 199 mg/dL [facility] Comment: Interpretive Data Fasting glucose >/= [...] classification and Diagnosis of Diabetes Diabetes Care 202; 46: S19-S40. Current interpretive data was last revised 2022. Calcium 10.0 8.5 - 10.3 mg/dL [facility] Bilirubin, total 0.4 0.1 - 1.2 mg/dL [facility] Protein, pl 6.1(L) 6.5 - 8.5 g/dL [facility] Albumin 3.9 3.5 - 5.0 g/dL [facility] Alk phos 70 40 - 130 Units/L [facility] ALT 27 7 - 55 Units/L [facility] AST 26 10 - 50 Units/L [facility] Blood 12/16/2024 8:35 AM ACTING INSTRUCTOR 12/16/2024 8:45 AM ACTING INSTRUCTOR us Jaqueline Blake MD LAB BLOOD ORDERABLES Final Result [facility] Department [place] [address] * CT chest abdomen pelvis without contrast (12/16/2024 7:57 AM ACTING INSTRUCTOR) Anatomical Region Laterality Modality Body N/A Computed Tomogra phy 12/16/2024 8:10 AM ACTING INSTRUCTOR Impressions 12/16/2024 8:10 AM ACTING INSTRUCTOR 1. Worsening lung bases in keeping with aspiration changes. 2. No definite metastasis or recurrence. 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 Electronically signed by: Luiz Maradiaga M.D. Narrative 12/16/2024 8:10 AM ACTING INSTRUCTOR EXAMINATION: CT CHEST, ABDOMEN AND PELVIS WITHOUT [...] * (ABNORMAL) POCT creatinine (12/16/2024 7:46 AM ACTING INSTRUCTOR) Creatinine POC 1.8(H) 0.8 - 1.3 mg/dL Blood 12/16/2024 7:46 AM ACTING INSTRUCTOR 12/16/2024 7:46 AM ACTING INSTRUCTOR us Jaqueline Blake MD LAB POCT ORDERABLES - JUDI CE Final Result [facility] Department [place] [address] * COLONOSCOPY (05/18/2021 8:30 AM CDT) Anatomical Region Laterality Modality Other Narrative Procedure Note Carmelo Santana MD - 05/18/2021 8:30 AM CDT ENDOSCOPY LAB Patient Name: Sarah Ward Procedure Date: 05/18/2021 8:30 AM Admit Type: Outpatient Room: [facility] Date of : 1940 Instrument Name: [id number] [...] the bowel preparation was evaluatedusing the BBPS (Hinckley Bowel Preparation Scale) withscores of: Right Colon [...] 05/18/2021 8:30 AM Scope In: Scope Out: us Carmelo Santana MD ENDOSCOPY PROCEDURES Final Result from Last 3 Months or Most Recently Relevant to Health Maintenance Insurance MEDICARE COMMERCIAL GENERIC [employer] MEDICARE MEDICARE [employer] MEDICARE [employer] Advance Directives For more information, please contact: [phone] * Full Code (Latest Code Status on File) Date Activated Date Inactivated Comments 02/08/2025 9:21 AM 02/08/2025 3:22 PM * Full Code Date Activated Date Inactivated Comments 09/26/2023 6:55 PM 09/27/2023 4:39 PM Care Teams Guard Lieutenant Relationship Specialty Start Date End Date River Serrano MD [address] [place] [address] [address] [facility] [address] [place] [address] PCP - General 05/09/17 Nehemias Carrillo MD [address] [place] [address] [address] [facility] [address] [place] [address] Referring Physician Cardiology 05/06/18 Kim Duong, OT [address] [place], [place] [address]MALISSA Park [address] [address] Occupational Therapist Occupational Therapy 03/19/19 Kayla Dye MD [address] [place] [address] [address] [address] Surgeon Ophthalmology 05/14/19 Zaid Manjarrez MD PhD [address] [place] [address] Consulting Physician Neurology 01/06/21 Cheri Babin PA [address] [place] [address] Physician Amusement Park Entertainer Urology 07/19/21 Jaqueline Blake MD [address] [facility] [address] [place] [address] Medical Oncologist/Claim Adjuster Medical Oncology 10/17/23 Bandar Ugarte MD [address] [facility], [place] [address] Radiation Oncologist Radiation Oncology 08/12/24 Kerrie Reyna MD [address] DIV DERMATOLOGY, [facility] [address] [place] [address] Door Serviceman Dermatology 08/17/24 Santa Saleem NP [address] [facility] [address] [place] [address] Nurse Practitioner Nurse Practitioner 09/01/24
--- NOTE | 2025-03-05 16:44 | ECG_ITS ---
Test Date: 2025-03-05 16:52:41 Measurements Intervals [place] Rate: 72 P: 32 AK: 181 QRS: 34 QRSD: 139 T: 50 QT: 403 QTc: 443 Interpretive Statements SINUS RHYTHM RIGHT BUNDLE BRANCH BLOCK [120+ ms QRS DURATION, UPRIGHT V1, 40+ ms S IN I/aVL/V4/V5/V6] No previous ECG available for comparison Electronically Signed On 03-05-2025 17:20:27 CDT by John Sidhu M.D.
--- NOTE | 2025-03-05 16:45 | ED.GENADULT ---
HPI - General Adult General Chief complaint: Syncope <Isael Celeste MD - Last Filed: 03/06/25 06:57> Stated complaint: multiple syncopal episodes <Isael Celeste MD - Last Filed: 03/06/25 06:57> History of Present Illness HPI narrative: 85-year-old male presenting to the emergency department for evaluation for multiple near syncopal episodes today. Patient states he felt fine yesterday but today he has been increasingly fatigued with normal exertion. Patient reports that he had these 3 episodes where he felt increasingly fatigued need to rest after short periods of activity. Patient then did have a syncopal episode during which he fell and struck his head. Patient was unsure if he had total loss of consciousness but does recall striking his head. Patient was then sitting on a stool with his when he had a 2nd syncopal episode. Patient denies any chest pain or shortness of breath. Patient denies any falls or injuries. Patient does have a history of kidney cancer last year and is currently following up with Oncology for prostate cancer. Patient is not on any chemotherapy at this time. Patient does have pallor upon arrival to the emergency department but denies any blood in stool denies any hematemesis. <Isael Celeste MD - Last Filed: 03/06/25 06:57> Related Data Home medications: Home Medications ?Medication ?Instructions ?Recorded ?Confirmed ?Last Taken ?Type Lactobacillus acidophilus 10 10,000 mmu cells PO DAILY 03/05/25 03/05/25 03/05/25 History billion cell capsule ([employer]) acetaminophen 500 mg capsule 1,000 mg PO Q4H PRN fever or pain 03/05/25 03/05/25 03/03/25 History acyclovir 400 mg tablet 400 mg PO Q12H 03/05/25 03/05/25 03/05/25 History alfuzosin 10 mg tablet,extended 10 mg PO DAILY 03/05/25 03/05/25 03/05/25 History release 24 hr aspirin 81 mg tablet,delayed 81 mg PO DAILY 03/05/25 03/05/25 03/05/25 History release (Adult Aspirin Regimen) atorvastatin 40 mg tablet 40 mg PO QPM 03/05/25 03/05/25 03/04/25 History calcium citrate 200 mg PO .q12hr 05/03/05/25 03/05/25 History cetirizine 10 mg tablet (24Hour 10 mg PO DAILY PRN allergy symptoms 03/05/25 03/05/25 03/05/25 History Allergy) cholecalciferol (vitamin D3) 50 2,000 unit PO DAILY 03/05/25 03/05/25 03/05/25 History mcg (2,000 unit) capsule (D3-2000) isosorbide mononitrate 30 mg 30 mg PO DAILY 03/05/25 03/05/25 03/05/25 History tablet,extended release 24 hr losartan 50 mg tablet 50 mg PO DAILY 03/05/25 03/05/25 03/05/25 History metoprolol succinate 25 mg 25 mg PO DAILY 03/05/25 03/05/25 03/05/25 History tablet,extended release 24 hr mv-mn-folic 200 mcg-vit K 15 1 cap PO .q12 03/05/25 03/05/25 03/05/25 History mcg-lutein 5 mg-zeaxanthin 1 mg capsule (PreserVision AREDS 2 Plus Multivit) pantoprazole 40 mg tablet,delayed 40 mg PO Q12H 03/05/25 03/05/25 03/05/25 History release <Isael Celeste MD - Last Filed: 03/06/25 06:57> Allergies/adverse reactions: Allergies Allergy/AdvReac Type Severity Reaction Status Date / Time No Known Allergies Allergy Unknown Verified 03/05/25 21:43 <Isael Celeste MD - Last Filed: 03/06/25 06:57> Review of Systems Review of Systems: All systems reviewed & are unremarkable except as noted in HPI and below <Isael Celeste MD - Last Filed: 03/06/25 06:57> [facility] Past Medical History Medical History: Medical History (Updated 03/05/25 @ 22:11 by Huyen De La Torre DO) GERD (gastroesophageal reflux disease) CKD (chronic kidney disease) stage 3, GFR 30-59 ml/min Essential hypertension Obstructive sleep apnea treated with uvulectomy and septoplasty Renal cell carcinoma (~2022) Prostate cancer (~2023) Last radiation treatment November 2024 Coronary artery disease Hyperlipidemia BPH (benign prostatic hyperplasia) <Isael Celeste MD - Last Filed: 03/06/25 06:57> Surgical History Surgical History: Surgical History (Updated 03/05/25 @ 22:05 by Huyen De La Torre DO) History of nasal septoplasty History of uvulectomy History of tonsillectomy and adenoidectomy History of percutaneous coronary intervention (04/2013) <Isael Celeste MD - Last Filed: 03/06/25 06:57> Family History Family History: Family History (Updated 03/05/25 @ 22:05 by Huyen De La Torre DO) Mother Diabetes mellitus Lung cancer Heart disease Father Heart disease <Isael Celeste MD - Last Filed: 03/06/25 06:57> Social History Social History: Social History (Updated 03/05/25 @ 22:07 by Huyen De La Torre DO) Social History: The patient lives in [place] with his . A daughter and a son. Code status: Full code Healthcare power of employment attorney: Kayla () Smoking status: Former smoker Second hand tobacco smoke exposure: No Alcohol intake: current Drinks per week: 1 Substance use: never Substance use type: does not use Do You Feel Safe in your Home?: Yes Lack of Transportation: No Lack of Food: Never True Current Housing: I Have Housing Concerned About Future Housing: No Difficulty Paying Gas/Electric Bills: No Difficulty Paying for Meds: No Currently Unemployed: No Education: High School Diploma/GED Difficulty w/ Childcare or Family Care: No Spiritual care concerns: No <Isael Celeste MD - Last Filed: 03/06/25 06:57> Exam Narrative: APPEARANCE: Frail-appearing with pallor HEAD: normocephalic, atraumatic. EYES: PERRLA/EOMI, conjunctivae clear. NOSE: Normal no drainage EARS:TMS clear with good light reflex. THROAT: Pharynx clear, no exudate. NECK: Supple. No adenopathy, no masses. RESPIRATORY: Airway patent, respirations nonlabored. Clear to auscultation bilaterally, no rales, rhonchi, wheezing. CARDIOVASCULAR: Regular rate and rhythm without murmurs rubs or gallops. ABDOMINAL: Soft, nontender, nondistended, normal bowel sounds MUSCULOSKELETAL: Moves all extremities. Strength/ROM intact, No edema, No calf tenderness. NEURO: Alert. Cranial nerves II through XII intact. Good gait. Good coordination SKIN: Warm, dry. Normal Color Rectal exam: Hemoccult negative <Isael Celeste MD - Last Filed: 03/06/25 06:57> Course Vital Signs Vital signs: Vital Signs Temperature 97.7 F 03/05/25 16:35 Pulse Rate 71 03/05/25 16:35 Respiratory Rate 16 03/05/25 16:35 Blood Pressure 111/61 03/05/25 16:35 Pulse Oximetry 95 03/05/25 16:35 Oxygen Delivery Room Air 03/05/25 16:35 Temperature 97.6 F 03/06/25 04:34 Pulse Rate 72 03/06/25 04:34 Respiratory Rate 16 03/06/25 04:34 Blood Pressure 145/65 H 03/06/25 04:34 Pulse Oximetry 94 03/06/25 04:34 Oxygen Delivery Room Air 03/05/25 21:40 Fraction of Inspired Oxygen 21 03/05/25 21:40 <Isael Celeste MD - Last Filed: 03/06/25 06:57> Vital Signs Temperature 97.7 F 03/05/25 16:35 Pulse Rate 71 03/05/25 16:35 Respiratory Rate 16 03/05/25 16:35 Blood Pressure 111/61 03/05/25 16:35 Pulse Oximetry 95 03/05/25 16:35 Oxygen Delivery Room Air 03/05/25 16:35 Temperature 97.6 F 03/06/25 04:34 Pulse Rate 72 03/06/25 04:34 Respiratory Rate 16 03/06/25 04:34 Blood Pressure 145/65 H 03/06/25 04:34 Pulse Oximetry 94 03/06/25 04:34 Oxygen Delivery Room Air 03/05/25 21:40 Fraction of Inspired Oxygen 03/05/25 21:40 <Flora Zheng, AMBROCIO - Last Filed: 03/05/25 19:32> Medical Decision Making MDM Narrative Medical decision making narrative: 85-year-old male presents emergency department for evaluation for multiple episodes of near-syncope and 2 episodes of syncope today. Patient is currently afebrile with no leukocytosis and hemoglobin of 10.4. Patient has an INR of 1.1. Patient's creatinine is 1.88 which is mildly higher than his previous baseline. Patient has negative troponin. Patient's proBNP is 765 and this is mildly elevated compared to a reported level of 400 per family. UA was negative for infection but did show evidence of ketones. Patient was treated with 2 L of lactated Ringer's and patient's blood pressure did improve. On re-evaluation patient is color is improved and patient is more alert and appropriate. <Isael Celeste MD - Last Filed: 03/06/25 06:57> 85-year-old male presents emergency department for evaluation for multiple episodes of near-syncope and 2 episodes of syncope today. Patient is currently afebrile with no leukocytosis and hemoglobin of 10.4. Patient has an INR of 1.1. Patient's creatinine is 1.88 which is mildly higher than his previous baseline. Patient has negative troponin. Patient's proBNP is 765 and this is mildly elevated compared to a reported level of 400 per family. UA was negative for infection but did show evidence of ketones. Patient was treated with 2 L of lactated Ringer's and patient's blood pressure did improve. On re-evaluation patient is color is improved and patient is more alert and appropriate. Pt's brain CT scan indicates no acute abnormality. Will plan to admit pt to the hospital. <Flora Zheng APRN - Last Filed: 03/05/25 19:32> Differential Diagnosis Differential Diagnosis: Subdural hematoma, subarachnoid hemorrhage, near syncope, syncope, orthostatic hypotension, anemia, upper GI bleed, lower GI bleed <Isael Celeste MD - Last Filed: 03/06/25 06:57> Vital Signs Vital Signs: Vital Signs Temperature 97.7 F 03/05/25 16:35 Pulse Rate 71 03/05/25 16:35 Respiratory Rate 16 03/05/25 16:35 Blood Pressure 111/61 03/05/25 16:35 Pulse Oximetry 95 03/05/25 16:35 Oxygen Delivery Room Air 03/05/25 16:35 Temperature 97.6 F 03/06/25 04:34 Pulse Rate 72 03/06/25 04:34 Respiratory Rate 16 03/06/25 04:34 Blood Pressure 145/65 H 03/06/25 04:34 Pulse Oximetry 94 03/06/25 04:34 Oxygen Delivery Room Air 03/05/25 21:40 Fraction of Inspired Oxygen 21 03/05/25 21:40 <Isael Celeste MD - Last Filed: 03/06/25 06:57> Vital Signs Temperature 97.7 F 03/05/25 16:35 Pulse Rate 71 03/05/25 16:35 Respiratory Rate 16 03/05/25 16:35 Blood Pressure 111/61 03/05/25 16:35 Pulse Oximetry 95 03/05/25 16:35 Oxygen Delivery Room Air 03/05/25 16:35 Temperature 97.6 F 03/06/25 04:34 Pulse Rate 72 03/06/25 04:34 Respiratory Rate 16 03/06/25 04:34 Blood Pressure 145/65 H 03/06/25 04:34 Pulse Oximetry 94 03/06/25 04:34 Oxygen Delivery Room Air 03/05/25 21:40 Fraction of Inspired Oxygen 21 03/05/25 21:40 <Flora Zheng APRN - Last Filed: 03/05/25 19:32> Lab Data Lab results reviewed: Yes I reviewed the patient's lab results. <Isael Celeste MD - Last Filed: 03/06/25 06:57> Result diagrams: 03/05/25 17:13 03/06/25 04:21 <Isael Celeste MD - Last Filed: 03/06/25 06:57> Labs: Lab Results 03/05/25 03/05/25 03/05/25 Range/Units 17:12 17:13 17:28 WBC 2.7 L (4.5-10.0) K/mm3 RBC 2.95 L (4.6-6.20) M/mm3 Hgb 10.4 L (14.0-18.0) g/dL Hct 31.3 L (42.0-52.0) % MCV 106.1 H (80-100) fl MCH 35.3 H (26-34) pg MCHC 33.2 (32-36) g/dl RDW 12.8 (11.5-14.5) % Plt Count 154 (150-375) k/mm3 MPV 10.4 (7.4-10.4) fl Immature Gran % (Auto) 0.8 H (0-0.5) % Neut % (Auto) 54.5 (45.5-73.1) % Lymph % (Auto) 19.9 (18.3-44.2) % [place] % (Auto) 16.5 H (2.6-8.5) % Eos % (Auto) 7.9 H (0-4.4) % Baso % (Auto) 0.4 (0.2-1.2) % Lymph # (Auto) 0.53 L (0.9-3.2) K/mm3 [place] # (Auto) 0.4 (0.1-0.6) K/mm3 Eos # (Auto) 0.2 (0-0.3) K/mm3 Baso # (Auto) 0.0 (0.0-0.1) K/mm3 Abs Immat Gran (auto) 0.02 (0.00-0.031) K/mm3 Absolute Neuts (auto) 1.5 (1.3-6.7) K/mm3 Absolute Nucleated RBC 0.000 (0.0-0.012) K/mm3 Band Neutrophils % 0 (0-6) % Nucleated RBC % 0.0 (0.0-0.2) % Platelet Estimate Adequate (Adequate) Macrocytosis 1+ (NORMAL) Schistocytes None seen PT 14.4 (11.1-14.7) Seconds INR 1.1 APTT 25.9 (22.3-36.8) Seconds Sodium 139 (137-145) mmol/L Potassium 4.2 (3.4-5.0) mmol/L Chloride 107 (98-107) mmol/L Carbon Dioxide 25 (22-30) mmol/L Anion Gap 7 (4-12) mmol/L BUN 42 H (9-20) mg/dL Creatinine 1.88 H (0.7-1.3) mg/dL Estim Creat Clear Calc 27 ml/min Estimated GFR 34 L (59 - ) Glucose 137 H (65-110) mg/dL Lactic Acid 1.5 (0.7-2.0) mmol/L Calcium 10.0 (8.4-10.2) mg/dL Magnesium 2.0 (1.6-2.3) mg/dL Total Bilirubin 0.6 (0.2-1.3) mg/dL AST 33 (17-59) U/L ALT 29 (6-50) U/L Alkaline Phosphatase 63 (38-126) U/L Troponin I < 0.012 (0.000-0.034) ng/mL NT-Pro-B Natriuret Pep 765 H (19.9-100) pg/mL Total Protein 6.0 L (6.3-8.2) g/dL Albumin 3.8 (3.5-5.1) g/dL Urine Color Yellow (Yellow) Urine Appearance Clear (Clear) Urine pH 6.0 (5.0-9.0) Ur Specific [place] 1.020 (1.001-1.035) Urine Protein Trace (Negative) mg/dL Urine Glucose (UA) Negative (Negative) mg/dL Urine Ketones Trace H (Negative) mg/dL Ur Blood (Man) Negative (Negative) Urine Nitrate Negative (Negative) Urine Bilirubin Negative (Negative) Urine Urobilinogen 0.2 (<2.0) mg/dL Leukocyte Esterase Rfl Negative (Negative) VAL/UL Urine RBC 0-2 (0-2) /hpf Urine WBC 0-5 (0-3) /hpf Ur Squamous Epith Cells None seen (Few) /hpf Urine Bacteria None seen /hpf Urine Casts 3-5 Influenza A (RT-PCR) (Negative) Influenza B (RT-PCR) (Negative) RSV (RT-PCR) (Negative) SARS-CoV-2 RNA (RT-PCR) (Negative) 03/05/25 Range/Units 18:18 WBC (4.5-10.0) K/mm3 RBC (4.6-6.20) M/mm3 Hgb (14.0-18.0) g/dL Hct (42.0-52.0) % MCV (80-100) fl MCH (26-34) pg MCHC (32-36) g/dl RDW (11.5-14.5) % Plt Count (150-375) k/mm3 MPV (7.4-10.4) fl Immature Gran % (Auto) (0-0.5) % Neut % (Auto) (45.5-73.1) % Lymph % (Auto) (18.3-44.2) % [place] % (Auto) (2.6-8.5) % Eos % (Auto) (0-4.4) % Baso % (Auto) (0.2-1.2) % Lymph # (Auto) (0.9-3.2) K/mm3 [place] # (Auto) (0.1-0.6) K/mm3 Eos # (Auto) (0-0.3) K/mm3 Baso # (Auto) (0.0-0.1) K/mm3 Abs Immat Gran (auto) (0.00-0.031) K/mm3 Absolute Neuts (auto) (1.3-6.7) K/mm3 Absolute Nucleated RBC (0.0-0.012) K/mm3 Band Neutrophils % (0-6) % Nucleated RBC % (0.0-0.2) % Platelet Estimate (Adequate) Macrocytosis (NORMAL) Schistocytes PT (11.1-14.7) Seconds INR APTT (22.3-36.8) Seconds Sodium (137-145) mmol/L Potassium (3.4-5.0) mmol/L Chloride (98-107) mmol/L Carbon Dioxide (22-30) mmol/L Anion Gap (4-12) mmol/L BUN (9-20) mg/dL Creatinine (0.7-1.3) mg/dL Estim Creat Clear Calc ml/min Estimated GFR (59 - ) Glucose (65-110) mg/dL Lactic Acid (0.7-2.0) mmol/L Calcium (8.4-10.2) mg/dL Magnesium (1.6-2.3) mg/dL Total Bilirubin (0.2-1.3) mg/dL AST (17-59) U/L ALT (6-50) U/L Alkaline Phosphatase (38-126) U/L Troponin I (0.000-0.034) ng/mL NT-Pro-B Natriuret Pep (19.9-100) pg/mL Total Protein (6.3-8.2) g/dL Albumin (3.5-5.1) g/dL Urine Color (Yellow) Urine Appearance (Clear) Urine pH (5.0-9.0) Ur Specific [place] (1.001-1.035) Urine Protein (Negative) mg/dL Urine Glucose (UA) (Negative) mg/dL Urine Ketones (Negative) mg/dL Ur Blood (Man) (Negative) Urine Nitrate (Negative) Urine Bilirubin (Negative) Urine Urobilinogen (<2.0) mg/dL Leukocyte Esterase Rfl (Negative) VAL/UL Urine RBC (0-2) /hpf Urine WBC (0-3) /hpf Ur Squamous Epith Cells (Few) /hpf Urine Bacteria /hpf Urine Casts Influenza A (RT-PCR) Negative (Negative) Influenza B (RT-PCR) Negative (Negative) RSV (RT-PCR) Negative (Negative) SARS-CoV-2 RNA (RT-PCR) Negative (Negative) <Isael Celeste MD - Last Filed: 03/06/25 06:57> Lab Results 03/05/25 03/05/25 03/05/25 Range/Units 17:12 17:13 17:28 WBC 2.7 L (4.5-10.0) K/mm3 RBC 2.95 L (4.6-6.20) M/mm3 Hgb 10.4 L (14.0-18.0) g/dL Hct 31.3 L (42.0-52.0) % MCV 106.1 H (80-100) fl MCH 35.3 H (26-34) pg MCHC 33.2 (32-36) g/dl RDW 12.8 (11.5-14.5) % Plt Count 154 (150-375) k/mm3 MPV 10.4 (7.4-10.4) fl Immature Gran % (Auto) 0.8 H (0-0.5) % Neut % (Auto) 54.5 (45.5-73.1) % Lymph % (Auto) 19.9 (18.3-44.2) % [place] % (Auto) 16.5 H (2.6-8.5) % Eos % (Auto) 7.9 H (0-4.4) % Baso % (Auto) 0.4 (0.2-1.2) % Lymph # (Auto) 0.53 L (0.9-3.2) K/mm3 [place] # (Auto) 0.4 (0.1-0.6) K/mm3 Eos # (Auto) 0.2 (0-0.3) K/mm3 Baso # (Auto) 0.0 (0.0-0.1) K/mm3 Abs Immat Gran (auto) 0.02 (0.00-0.031) K/mm3 Absolute Neuts (auto) 1.5 (1.3-6.7) K/mm3 Absolute Nucleated RBC 0.000 (0.0-0.012) K/mm3 Band Neutrophils % 0 (0-6) % Nucleated RBC % 0.0 (0.0-0.2) % Platelet Estimate Adequate (Adequate) Macrocytosis 1+ (NORMAL) Schistocytes None seen PT 14.4 (11.1-14.7) Seconds INR 1.1 APTT 25.9 (22.3-36.8) Seconds Sodium 139 (137-145) mmol/L Potassium 4.2 (3.4-5.0) mmol/L Chloride 107 (98-107) mmol/L Carbon Dioxide 25 (22-30) mmol/L Anion Gap 7 (4-12) mmol/L BUN 42 H (9-20) mg/dL Creatinine 1.88 H (0.7-1.3) mg/dL Estim Creat Clear Calc 27 ml/min Estimated GFR 34 L (59 - ) Glucose 137 H (65-110) mg/dL Lactic Acid 1.5 (0.7-2.0) mmol/L Calcium 10.0 (8.4-10.2) mg/dL Magnesium 2.0 (1.6-2.3) mg/dL Total Bilirubin 0.6 (0.2-1.3) mg/dL AST 33 (17-59) U/L ALT 29 (6-50) U/L Alkaline Phosphatase 63 (38-126) U/L Troponin I < 0.012 (0.000-0.034) ng/mL NT-Pro-B Natriuret Pep 765 H (19.9-100) pg/mL Total Protein 6.0 L (6.3-8.2) g/dL Albumin 3.8 (3.5-5.1) g/dL Urine Color Yellow (Yellow) Urine Appearance Clear (Clear) Urine pH 6.0 (5.0-9.0) Ur Specific [place] 1.020 (1.001-1.035) Urine Protein Trace (Negative) mg/dL Urine Glucose (UA) Negative (Negative) mg/dL Urine Ketones Trace H (Negative) mg/dL Ur Blood (Man) Negative (Negative) Urine Nitrate Negative (Negative) Urine Bilirubin Negative (Negative) Urine Urobilinogen 0.2 (<2.0) mg/dL Leukocyte Esterase Rfl Negative (Negative) VAL/UL Urine RBC 0-2 (0-2) /hpf Urine WBC 0-5 (0-3) /hpf Ur Squamous Epith Cells None seen (Few) /hpf Urine Bacteria None seen /hpf Urine Casts 3-5 Influenza A (RT-PCR) (Negative) Influenza B (RT-PCR) (Negative) RSV (RT-PCR) (Negative) SARS-CoV-2 RNA (RT-PCR) (Negative) 03/05/25 Range/Units 18:18 WBC (4.5-10.0) K/mm3 RBC (4.6-6.20) M/mm3 Hgb (14.0-18.0) g/dL Hct (42.0-52.0) % MCV (80-100) fl MCH (26-34) pg MCHC (32-36) g/dl RDW (11.5-14.5) % Plt Count (150-375) k/mm3 MPV (7.4-10.4) fl Immature Gran % (Auto) (0-0.5) % Neut % (Auto) (45.5-73.1) % Lymph % (Auto) (18.3-44.2) % [place] % (Auto) (2.6-8.5) % Eos % (Auto) (0-4.4) % Baso % (Auto) (0.2-1.2) % Lymph # (Auto) (0.9-3.2) K/mm3 [place] # (Auto) (0.1-0.6) K/mm3 Eos # (Auto) (0-0.3) K/mm3 Baso # (Auto) (0.0-0.1) K/mm3 Abs Immat Gran (auto) (0.00-0.031) K/mm3 Absolute Neuts (auto) (1.3-6.7) K/mm3 Absolute Nucleated RBC (0.0-0.012) K/mm3 Band Neutrophils % (0-6) % Nucleated RBC % (0.0-0.2) % Platelet Estimate (Adequate) Macrocytosis (NORMAL) Schistocytes PT (11.1-14.7) Seconds INR APTT (22.3-36.8) Seconds Sodium (137-145) mmol/L Potassium (3.4-5.0) mmol/L Chloride (98-107) mmol/L Carbon Dioxide (22-30) mmol/L Anion Gap (4-12) mmol/L BUN (9-20) mg/dL Creatinine (0.7-1.3) mg/dL Estim Creat Clear Calc ml/min Estimated GFR (59 - ) Glucose (65-110) mg/dL Lactic Acid (0.7-2.0) mmol/L Calcium (8.4-10.2) mg/dL Magnesium (1.6-2.3) mg/dL Total Bilirubin (0.2-1.3) mg/dL AST (17-59) U/L ALT (6-50) U/L Alkaline Phosphatase (38-126) U/L Troponin I (0.000-0.034) ng/mL NT-Pro-B Natriuret Pep (19.9-100) pg/mL Total Protein (6.3-8.2) g/dL Albumin (3.5-5.1) g/dL Urine Color (Yellow) Urine Appearance (Clear) Urine pH (5.0-9.0) Ur Specific [place] (1.001-1.035) Urine Protein (Negative) mg/dL Urine Glucose (UA) (Negative) mg/dL Urine Ketones (Negative) mg/dL Ur Blood (Man) (Negative) Urine Nitrate (Negative) Urine Bilirubin (Negative) Urine Urobilinogen (<2.0) mg/dL Leukocyte Esterase Rfl (Negative) VAL/UL Urine RBC (0-2) /hpf Urine WBC (0-3) /hpf Ur Squamous Epith Cells (Few) /hpf Urine Bacteria /hpf Urine Casts Influenza A (RT-PCR) Negative (Negative) Influenza B (RT-PCR) Negative (Negative) RSV (RT-PCR) Negative (Negative) SARS-CoV-2 RNA (RT-PCR) Negative (Negative) <Flora Zheng APRN - Last Filed: 03/05/25 19:32> Imaging Data Radiologist's impression: Impressions Chest X-Ray 03/05/25 17:33 IMPRESSION: Bibasilar atelectasis versus pneumonia. <Isael Celeste MD - Last Filed: 03/06/25 06:57> Discharge Plan Discharge Clinical Impression: Syncope and collapse Head injury Qualifiers: Encounter type: subsequent encounter Qualified Code(s): S09.90XD - Unspecified injury of head, subsequent encounter <Isael Celeste MD - Last Filed: 03/06/25 06:57> Patient Disposition: Still a Patient <Isael Celeste MD - Last Filed: 03/06/25 06:57> Condition: Serious <Isael Celeste MD - Last Filed: 03/06/25 06:57>
[2025-03-05 17:17] LABS: Basophils Percent Auto 0.4 % (0.2-1.2); Eosinophils Absolute Auto 0.2 K/mm3 (0-0.3); Eosinophils Percent Auto 7.9 % (0-4.4); Hematocrit 31.3 % (42.0-52.0); Hemoglobin 10.4 g/dL (14.0-18.0); Immature Granulocyte Absolute 0.02 K/mm3 (0.00-0.031); Immature Granulocyte Percent A 0.8 % (0-0.5); Lymphocytes Absolute Auto 0.53 K/mm3 (0.9-3.2); Lymphocytes Percent Auto 19.9 % (18.3-44.2); Mean Corpuscular HGB Conc 33.2 g/dl (32-36); Mean Corpuscular Hemoglobin 35.3 pg (26-34); Mean Corpuscular Volume 106.1 fl (80-100); Mean Platelet Volume 10.4 fl (7.4-10.4); Monocytes Absolute Auto 0.4 K/mm3 (0.1-0.6); Monocytes Percent Auto 16.5 % (2.6-8.5); Neutrophils Absolute Auto 1.5 K/mm3 (1.3-6.7); Neutrophils Percent Auto 54.5 % (45.5-73.1); Platelet Count Result 154 k/mm3 (150-375); Red Blood Count 2.95 M/mm3 (4.6-6.20); Red Cell Distribution Width 12.8 % (11.5-14.5); White Blood Count 2.7 K/mm3 (4.5-10.0)
[2025-03-05 17:27] LABS: Lactic Acid Reflex 1.5 mmol/L (0.7-2.0)
[2025-03-05 17:28] LABS: Alanine Aminotransferase 29 U/L (6-50); Albumin Level 3.8 g/dL (3.5-5.1); Alkaline Phosphatase 63 U/L (38-126); Anion Gap 7 mmol/L (4-12); Aspartate Amino Transferase 33 U/L (17-59); Bilirubin,Total 0.6 mg/dL (0.2-1.3); Blood Urea Nitrogen 42 mg/dL (9-20); Carbon Dioxide 25 mmol/L (22-30); Chloride 107 mmol/L (98-107); Estimated CRCL calculation 27 ml/min; Estimated Glomerular Filt Rate 34; Glucose 137 mg/dL (65-110); Potassium 4.2 mmol/L (3.4-5.0); Sodium 139 mmol/L (137-145)
[2025-03-05 17:34] LABS: INR 1.1; Partial Thromboplastin Time 25.9 Seconds (22.3-36.8); Prothrombin Time 14.4 Seconds (11.1-14.7)
[2025-03-05] MEDS: LACTATED RINGERS 1,000 ML 999 ML IV CONT ×2 (17:35→18:04)
[2025-03-05 17:40] LABS: NT Pro B Type Natriuretic Pept 765 pg/mL (19.9-100); Troponin I < 0.012 ng/mL (0.000-0.034)
[2025-03-05 17:43] LABS: Add Urine Microscopic? YES; Appearance Urine Clear (Clear); Bacteria Urine None Seen /hpf; Bilirubin Urine Negative (Negative); Blood Urine Negative (Negative); Color Urine Yellow (Yellow); Glucose Urine UA Negative (Negative); Ketones Urine Trace mg/dL (Negative); Leukocyte Esterase Ur Negative LEU/UL (Negative); Nitrate Urine Negative (Negative); Protein Urine Trace mg/dL (Negative); RBC Urine 0-2 /hpf (0-2); Squamous Epithelial Cell Urine None Seen /hpf (Few); Urobilinogen Urine 0.2 mg/dL (<2.0); WBC Urine 0-5 /hpf (0-3)
[2025-03-05 17:48] LABS: Platelet Estimate Adequate (Adequate)
[2025-03-05 17:50] LABS: Band Neutrophils Percent 0 % (0-6); Schistocytes None Seen
[2025-03-05 17:51] LABS: Macrocytosis 1+ (NORMAL)
[2025-03-05 18:58] LABS: Influenza A QL RT-PCR Negative (Negative); Influenza B QL RT-PCR Negative (Negative); RSV RNA, RT-PCR Negative (Negative); SARS-CoV-2 RNA PCR Negative (Negative)
--- NOTE | 2025-03-05 21:16 | ADMGEN ---
This patient, Reid Serna, was admitted to Medical Room 247-. Patient/family oriented to hospital policies and general routines including ID bracelet, bed and alarms, visiting hours, pain management, procedures, bathroom and other care routines, personal items, smoking policy, room service/diet, and visiting hours. Information on how to activate the Rapid Response Team has been discussed. Patient/Family are encouraged to report perceived risks to care and to ask questions if they do not understand what they are told or what they should do.
--- NOTE | 2025-03-05 21:56 | P.HP_ITS ---
H&P: HPI History of Present Illness Date/Time: 03/05/25 21:56 Chief Complaint: Almost passed out multiple times Narrative: Pleasantly loquacious 85-year-old male with a past medical history of coronary artery disease code renal cell carcinoma, chronic kidney disease stage 3, prostate cancer, essential hypertension and GERD among other medical problems who presented to the ER via EMS due to multiple near syncopal episodes today. The patient reports that since he was given a hormone jesse for his prostate cancer in October has been generally fatigued. He completed radiation therapy for his prostate cancer in November. He reports that he has been more tired for the last couple of days because his was recently in the hospital. He had to miss his appointment for his scheduled outpatient mayes echocardiogram on the because he came to pick his up after hospital discharge. He denied having any chest pain palpitations or shortness of breath. However he thinks that his episodes reported came in were due to over exerting himself and being dehydrated. He states that he was up and walking across the room when he felt fatigued for few seconds and felt as if he may pass out. He managed to get over to was stool in sit down. While he and his were arguing over how the blood pressure cuff should be placed on his arm he started to pass out again and ended up sliding off this stool. He does not really remember the process of sliding off the stool but he does remember hitting his head. He reports a softly it is head when he landed on his butt and then slid will to his left side with his arm extended. He denies any headache or vision changes. He admits that he does not really drink enough water. He was much better about drinking larger amounts of water when he was undergoing his radiation treatments but has fallen off with that habit. He has been drinking approximately 2 cups of coffee a day as well. He denies any dysuria or hematuria. He reports that his urine output has been lower for the last couple of days. He reports chronic urinary urgency and frequency in states that if he needs to go to the bathroom he asked ago immediately. He has to wear absorbent pads ever since his prostate cancer diagnosis. He has not had any recent changes in medications. When his checked his blood pressure at home his systolic blood pressure was around 90. When EMS arrived at the home his systolic blood pressure was just below 100. By the time he arrived to the ER his blood pressure were in the 110s to 120s which is more his usual range. He received 2 L of isotonic fluids in fluid bolus in the ER. After he received IV fluids he did have a good void. He feels as if he empties his bladder completely. His orthostatic vital signs in the ER were normal. History was obtained majority of from the patient's himself. He is in extremely good historian. Information supplemented with ER physician report and review of past medical records. Review of Systems 2 Review of Systems: 12 systems were reviewed with pertinent positives and negatives per HPI. Except as documented in the HPI, all other systems were reviewed and are negative. [facility] Past Medical History Medical History (Updated 03/06/25 @ 07:17 by Huyen De La Torre DO) Peripheral neuropathy GERD (gastroesophageal reflux disease) CKD (chronic kidney disease) stage 3, GFR 30-59 ml/min Essential hypertension Obstructive sleep apnea treated with uvulectomy and septoplasty Renal cell carcinoma (~2022) Prostate cancer (~2023) Last radiation treatment November 2024 Coronary artery disease Hyperlipidemia BPH (benign prostatic hyperplasia) Surgical History Surgical History (Updated 03/06/25 @ 07:17 by Huyen De La Torre DO) Status post open reduction with internal fixation of fracture Left elbow fracture when he was a child History of nasal septoplasty History of uvulectomy History of tonsillectomy and adenoidectomy History of percutaneous coronary intervention (04/2013) Family History Family History (Updated 03/05/25 @ 22:05 by Huyen De La Torre DO) Mother Diabetes mellitus Lung cancer Heart disease Father Heart disease Social History Social History (Updated 03/06/25 @ 07:14 by Huyen De La Torre DO) Social History: The patient lives in [place] with his of over 60 years. They raised 2 daughters and a son. 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 He used to smoke a pack of cigarettes per day but quit smoking over 40 years ago. He may drink 1 or 2 alcoholic beverages once or twice a month. Code status: Full code Healthcare power of assistant county attorney: Kayla () Smoking packs per day: 1 Smoking cigarettes per day: 20.0 Years smoked: 25 Smoking pack-years: 25.00 Smoking status: Former smoker Second hand tobacco smoke exposure: No Alcohol intake: current Drinks per week: 1 Substance use: never Substance use type: does not use Do You Feel Safe in your Home?: Yes Lack of Transportation: No Lack of Food: Never True Current Housing: I Have Housing Concerned About Future Housing: No Difficulty Paying Gas/Electric Bills: No Difficulty Paying for Meds: No Currently Unemployed: No Education: High School Diploma/GED Difficulty w/ Childcare or Family Care: No Spiritual care concerns: No Meds Home Medications and Allergies Home Medications ?Medication ?Instructions ?Recorded ?Confirmed ?Type Lactobacillus acidophilus 10 10,000 mmu cells PO DAILY 03/05/25 03/05/25 History billion cell capsule (NewFlora) acetaminophen 500 mg capsule 1,000 mg PO Q4H PRN fever or pain 03/05/25 03/05/25 History acyclovir 400 mg tablet 400 mg PO Q12H 03/05/25 03/05/25 History alfuzosin 10 mg tablet,extended 10 mg PO DAILY 03/05/25 03/05/25 History release 24 hr aspirin 81 mg tablet,delayed 81 mg PO DAILY 03/05/25 03/05/25 History release (Adult Aspirin Regimen) atorvastatin 40 mg tablet 40 mg PO QPM 03/05/25 03/05/25 History calcium citrate 200 mg PO .q12hr 03/05/25 03/05/25 History cetirizine 10 mg tablet (24Hour 10 mg PO DAILY PRN allergy symptoms 03/05/25 03/05/25 History Allergy) cholecalciferol (vitamin D3) 50 2,000 unit PO DAILY 03/05/25 03/05/25 History mcg (2,000 unit) capsule (D3-2000) isosorbide mononitrate 30 mg 30 mg PO DAILY 03/05/25 03/05/25 History tablet,extended release 24 hr losartan 50 mg tablet 50 mg PO DAILY 03/05/25 03/05/25 History metoprolol succinate 25 mg 25 mg PO DAILY 03/05/25 03/05/25 History tablet,extended release 24 hr mv-mn-folic 200 mcg-vit K 15 1 cap PO .q12 03/05/25 03/05/25 History mcg-lutein 5 mg-zeaxanthin 1 mg capsule (PreserVision AREDS 2 Plus Multivit) pantoprazole 40 mg tablet,delayed 40 mg PO Q12H 03/05/25 03/05/25 History release Allergies Allergy/AdvReac Type Severity Reaction Status Date / Time No Known Allergies Allergy Unknown Verified 03/05/25 21:43 Vital Signs Vital Signs - 24 hr 03/05/25 16:35 03/05/25 18:30 03/05/25 18:30 Temperature 97.7 F Pulse Rate 71 73 79 Respiratory Rate 16 Blood Pressure 111/61 114/53 L 120/60 Pulse Oximetry 95 Oxygen Delivery Room Air Fraction of Inspired Oxygen 03/05/25 18:32 03/05/25 18:35 03/05/25 20:17 Temperature Pulse Rate 78 89 80 Respiratory Rate 18 18 Blood Pressure 129/57 L 129/57 L 128/77 Pulse Oximetry 95 99 Oxygen Delivery Fraction of Inspired Oxygen 03/05/25 21:23 03/05/25 21:40 Temperature 97.6 F Pulse Rate 73 Respiratory Rate 16 Blood Pressure 134/61 Pulse Oximetry 98 98 Oxygen Delivery Room Air Fraction of Inspired Oxygen 21 Exam 2 Narrative: Weight 80 kg BMI 25.3 Const: Other: No acute distress, well-developed well-nourished, appears stated age HENMT: Other: Upper dentures in place, mucous membranes are moist, no oral pharyngeal erythema Eyes: Other: Positive conjunctival pallor, no scleral icterus, left lens implant noted, pupils are equal and reactive Neck: Other: No JVD, no lymphadenopathy Resp: Other: Clear to auscultation bilaterally, no increased work of breathing Cardio: Other: Regular rate, regular rhythm, 2+ bilateral radial pedal pulses, no murmur GI: Other: Soft, nontender, nondistended, positive bowel sounds : Other: Deferred Skin: Other: No large areas of bruising, petechiae or rash Neuro: Other: Alert oriented x4, speech is clear, no facial asymmetry, intact sensation, no localizing neurologic deficits noted during the course of conversation Extrem: Other: No clubbing, cyanosis or edema, scarring to the left elbow from prior ORIF with muscle wasting and decreased mobility of forearm that is chronic Psych: Other: Appropriate mood and affect, pleasant and cooperative, judgment and insight intact H&P: Results Labs Labs: Laboratory Tests 03/05/25 17:13 03/05/25 17:12 03/05/25 03/05/25 03/05/25 17:12 17:13 17:28 WBC 2.7 L RBC 2.95 L Hgb 10.4 L Hct 31.3 L MCV 106.1 H MCH 35.3 H MCHC 33.2 RDW 12.8 Plt Count 154 MPV 10.4 Immature Gran % (Auto) 0.8 H Neut % (Auto) 54.5 Lymph % (Auto) 19.9 [place] % (Auto) 16.5 H Eos % (Auto) 7.9 H Baso % (Auto) 0.4 Lymph # (Auto) 0.53 L [place] # (Auto) 0.4 Eos # (Auto) 0.2 Baso # (Auto) 0.0 Abs Immat Gran (auto) 0.02 Absolute Neuts (auto) 1.5 Absolute Nucleated RBC 0.000 Band Neutrophils % 0 Nucleated RBC % 0.0 Platelet Estimate Adequate Macrocytosis 1+ Schistocytes None seen PT 14.4 INR 1.1 APTT 25.9 Sodium 139 Potassium 4.2 Chloride 107 Carbon Dioxide 25 Anion Gap 7 BUN 42 H Creatinine 1.88 H Estim Creat Clear Calc 27 Estimated GFR 34 L Glucose 137 H Lactic Acid 1.5 Calcium 10.0 Magnesium 2.0 Total Bilirubin 0.6 AST 33 ALT 29 Alkaline Phosphatase 63 Troponin I < 0.012 NT-Pro-B Natriuret Pep 765 H Total Protein 6.0 L Albumin 3.8 Urine Color Yellow Urine Appearance Clear Urine pH 6.0 Ur Specific [place] 1.020 Urine Protein Trace Urine Glucose (UA) Negative Urine Ketones Trace H Ur Blood (Man) Negative Urine Nitrate Negative Urine Bilirubin Negative Urine Urobilinogen 0.2 Leukocyte Esterase Rfl Negative Urine RBC 0-2 Urine WBC 0-5 Ur Squamous Epith Cells None seen Urine Bacteria None seen Urine Casts 3-5 Influenza A (RT-PCR) Influenza B (RT-PCR) RSV (RT-PCR) SARS-CoV-2 RNA (RT-PCR) 03/05/25 18:18 WBC RBC Hgb Hct MCV MCH MCHC RDW Plt Count MPV Immature Gran % (Auto) Neut % (Auto) Lymph % (Auto) [place] % (Auto) Eos % (Auto) Baso % (Auto) Lymph # (Auto) [place] # (Auto) Eos # (Auto) Baso # (Auto) Abs Immat Gran (auto) Absolute Neuts (auto) Absolute Nucleated RBC Band Neutrophils % Nucleated RBC % Platelet Estimate Macrocytosis Schistocytes PT INR APTT Sodium Potassium Chloride Carbon Dioxide Anion Gap BUN Creatinine Estim Creat Clear Calc Estimated GFR Glucose Lactic Acid Calcium Magnesium Total Bilirubin AST ALT Alkaline Phosphatase Troponin I NT-Pro-B Natriuret Pep Total Protein Albumin Urine Color Urine Appearance Urine pH Ur Specific [place] Urine Protein Urine Glucose (UA) Urine Ketones Ur Blood (Man) Urine Nitrate Urine Bilirubin Urine Urobilinogen Leukocyte Esterase Rfl Urine RBC Urine WBC Ur Squamous Epith Cells Urine Bacteria Urine Casts Influenza A (RT-PCR) Negative Influenza B (RT-PCR) Negative RSV (RT-PCR) Negative SARS-CoV-2 RNA (RT-PCR) Negative Impressions Chest X-Ray 03/05/25 17:33 IMPRESSION: Bibasilar atelectasis versus pneumonia. Head CT 03/05/25 19:17 IMPRESSION: No acute intracranial findings. EKG: Test Date: 2025-03-05 16:52:41 Measurements Intervals [place] Rate: 72 P: 32 CO: 181 QRS: 34 QRSD: 139 T: 50 QT: 403 QTc: 443 Interpretive Statements SINUS RHYTHM RIGHT BUNDLE BRANCH BLOCK [120+ ms QRS DURATION, UPRIGHT V1, 40+ ms S IN I/aVL/V4/V5/V6] No previous ECG available for comparison All imaging and EKGs personally reviewed and interpreted. And unless stated otherwise agree with radiologic and cardiology interpretation. Assessment and Plan Assessment and plan (1) Syncope and collapse: Code(s): R55 - Syncope and collapse Status: Acute (2) Dehydration: Code(s): E86.0 - Dehydration Status: Acute (3) Head injury: Qualifiers: Encounter type: subsequent encounter Qualified Code(s): S09.90XD - Unspecified injury of head, subsequent encounter Code(s): S09.90XA - Unspecified injury of head, initial encounter Status: Acute (4) Near syncope: Code(s): R55 - Syncope and collapse Status: Acute (5) CKD (chronic kidney disease) stage 3, GFR 30-59 ml/min: Qualifiers: Chronic kidney disease stage 3 subtype: stage 3b (GFR 30-44) Qualified Code(s): N18.32 - Chronic kidney disease, stage 3b Code(s): N18.30 - Chronic kidney disease, stage 3 unspecified Status: Acute (6) Essential hypertension: Code(s): I10 - Essential (primary) hypertension Status: Acute Plan The patient has presented with near syncope and possibly 1 true syncopal episode. Patient's labs are consistent with dehydration with ketones in his urine and elevated BUN. Although BUN is only mildly elevated compared to prior values from 2022. The patient's creatinine appears to be near baseline. Orthostatic vital signs were normal ruling out orthostatic hypotension as likely component. Patient received 2 L of isotonic fluids in bolus. Will given additional 1 L fluids at 100 mL an hour.. Patient will be monitored on telemetry to rule out some component of cardiogenic syncope/rhythm disturbance although initial EKG in the ER has been reviewed and did not demonstrate any evidence of arrhythmia. The patient missed his outpatient echocardiogram the day prior to presentation. Given acute syncopal episode will obtain echocardiogram to further evaluate patient's underlying cardiac structure and function. Will resume home antihypertensives including losartan and Toprol. Will repeat electrolyte panel in a.m and will check magnesium. Patient does have some mild leukopenia he is not currently on any chemotherapeutic agents. His x-ray does demonstrate bilateral bibasilar atelectasis versus pneumonia but he denies any cough, shortness of breath or upper respiratory symptoms. His findings are most likely consistent with atelectasis. Will order incentive spirometry. Will check repeat CBC and monitor for signs of infection. Patient has been admitted as observation status. Quality VTE Prophylaxis VTE prophylaxis: mechanical ordered (SCDs) Hospitalist [facility] Advance Care Plan I have confirmed that the patient's Advanced Care Plan is present, code status is documented, or surrogate decision maker is listed in patient medical record.: Yes Medication Reconciliation I have utilized all available resources to obtain, update and review the patients current medications (includes all prescriptions, OTC, herbals, cannabis, and nutritional supplements).: Yes
[2025-03-06] VITALS (11 sets, daily range): BP systolic 123–145; BP diastolic 53–68; PULSE 68–80; RESP 16; TEMP 36.3–36.4; O2SAT 94–96
[2025-03-06] MEDS: ACETAMINOPHEN 325 MG TABLET 650 MG PO ×4 (00:49→21:01)
[2025-03-06] MEDS: SODIUM CHLORIDE 0.9% IV 1,000 ML 100 ML IV CONT (02:32)
[2025-03-06 05:31] LABS: Anion Gap 5 mmol/L (4-12); Blood Urea Nitrogen 39 mg/dL (9-20); Calcium 9.8 mg/dL (8.4-10.2); Carbon Dioxide 24 mmol/L (22-30); Chloride 110 mmol/L (98-107); Estimated CRCL calculation 30 ml/min; Estimated Glomerular Filt Rate 39; Glucose 102 mg/dL (65-110); Magnesium 1.9 mg/dL (1.6-2.3); Potassium 3.9 mmol/L (3.4-5.0); Sodium 139 mmol/L (137-145)
--- NOTE | 2025-03-06 07:07 | PM.IMPN ---
Progress Note: A&P Assessment and Plan (1) Syncope and collapse: Code(s): R55 - Syncope and collapse Status: Acute Assessment and Plan: Recently started on medication to decrease his testosterone approximately 6 months ago, due to underlying prostate cancer, but this was stopped as he has been experiencing hot flashes, exercise intolerance, and exertional dizziness/dyspnea. He states that the symptoms have been becoming less frequent however he believes he over exerted himself yesterday helping his move around things in the house. States he was walking around and had a near syncopal episode, sat down on a chair to take his blood pressure than a few minutes later completely passed out. Reports hitting his head on the ground during the 1st episode, but did not strike his head when he had a full syncopal episode according to him/his . Physical exam: No lower extremity swelling, adventitious lung sounds, heart murmurs, or neurological findings Head CT: No acute intracranial findings. Chest XR: Bibasilar atelectasis versus pneumonia. 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 compared to previous EKG on 06/02/2023 Glucose WNL Obtain iron studies Echocardiogram pending PT/OT eval Cardiology consult (2) Head injury: Qualifiers: Encounter type: subsequent encounter Qualified Code(s): S09.90XD - Unspecified injury of head, subsequent encounter Code(s): S09.90XA - Unspecified injury of head, initial encounter Status: Acute Assessment and Plan: See above (3) CKD (chronic kidney disease) stage 3, GFR 30-59 ml/min: Qualifiers: Chronic kidney disease stage 3 subtype: stage 3b (GFR 30-44) Qualified Code(s): N18.32 - Chronic kidney disease, stage 3b Code(s): N18.30 - Chronic kidney disease, stage 3 unspecified Status: Acute Assessment and Plan: -Creatinine: 1.68, GFR: 39, BUN: 39 -IV Fluids: NS 100ml/hr -Trend renal function -trend electrolytes, correct as needed -Add CK, urine sodium, protein/creatinine, urea (4) Essential hypertension: Code(s): I10 - Essential (primary) hypertension Status: Acute Assessment and Plan: Patient's blood pressure was reviewed on 03/06/2025 Blood pressure remains well controlled. Chronic, continue home medications Time Spent With Patient Time: Subjective Date/time seen: 03/06/25 07:07 Interval history: 85-year-old male with a past medical history of CAD, prostate cancer, renal cell carcinoma, CKD stage 3, HTN and GERD presented to ER via EMS due to multiple near syncopal episodes today. 03/06/2025 Patient sitting comfortably in bed at time of examination. At this time he denies any chest pain, shortness a breath, weakness/dizziness, nausea/vomiting, abdominal pain. He does state that he started experiencing right ankle pain/swelling last night that he thinks is from twisting his ankle during his syncopal episodes yesterday. Will obtain right ankle x-ray. Pending echo. Patient states that he was started on medication to decrease his testosterone approximately 6 months ago but this was stopped as he has been experiencing hot flashes, exercise intolerance, and exertional dizziness/dyspnea. He states that the symptoms have been becoming less frequent however he believes he over exerted himself yesterday helping his move around things in the house. Review of Systems Review of Systems: 12 systems were reviewed with pertinent positives and negatives per HPI. Except as documented in the HPI, all other systems were reviewed and are negative. Exam Narrative: Weight 80 kg BMI 25.3 Objective Data Vital Signs Vital Signs: Vital Signs - 24 hr 03/05/25 16:35 03/05/25 18:30 03/05/25 18:30 Temperature 97.7 F Pulse Rate 71 73 79 Respiratory Rate 16 Blood Pressure 111/61 114/53 L 120/60 Pulse Oximetry 95 Oxygen Delivery Room Air Fraction of Inspired Oxygen 03/05/25 18:32 03/05/25 18:35 03/05/25 20:17 Temperature Pulse Rate 78 89 80 Respiratory Rate 18 18 Blood Pressure 129/57 L 129/57 L 128/77 Pulse Oximetry 95 99 Oxygen Delivery Fraction of Inspired Oxygen 03/05/25 21:23 03/05/25 21:40 03/06/25 00:03 Temperature 97.6 F Pulse Rate 73 80 Respiratory Rate 16 Blood Pressure 134/61 Pulse Oximetry 98 98 Oxygen Delivery Room Air Fraction of Inspired Oxygen 03/06/25 04:01 03/06/25 04:34 Temperature 97.6 F Pulse Rate 70 72 Respiratory Rate 16 Blood Pressure 145/65 H Pulse Oximetry 94 Oxygen Delivery Fraction of Inspired Oxygen Intake/Output Intake/Output: Intake & Output 03/03/25 03/04/25 03/05/25 03/06/25 23:59 23:59 23:59 23:59 Intake Total 1999 300 Output Total 550 Balance 1999 -250 Meds/Results Medications: Active Medications Generic Name Dose Route Start Last Admin Trade Name Freq PRN Reason Stop Dose Admin Acetaminophen 650 mg 03/06/25 00:24 03/06/25 04:39 Acetaminophen 325 Mg Tablet PO 650 mg Q4H PRN Administration Mild Pain (1-3) or Fever Acyclovir 400 mg 03/06/25 09:00 Acyclovir 400 Mg Tablet PO Q12HR [facility] Alfuzosin HCl 10 mg 03/06/25 09:00 Alfuzosin 10 Mg Er Tablet PO DAILY [facility] Aspirin 81 mg 03/06/25 09:00 Aspirin 81 Mg Enteric Tablet PO DAILY [facility] Atorvastatin Calcium 40 mg 03/06/25 21:00 Atorvastatin 40 Mg Tablet PO QHS [facility] Calcium Citrate 1 tablet 03/06/25 09:00 Calcium Citrate 315 Mg/Vitamin D 6.25 Mcg (250 Units) Tab PO DAILY [facility] Sodium Chloride 1,000 mls @ 100 mls/hr 03/06/25 01:50 03/06/25 02:32 Normal Saline Iv IV CONT 03/06/25 11:49 100 mls/hr .Q10H ASHLEY Administration Isosorbide Mononitrate 30 mg 03/06/25 09:00 Isosorbide Mononitrate 30 Mg Tab.Er.24h PO DAILY [facility] Lactobacillus Acidophilus 1 tablet 03/06/25 09:00 Acidophilus/Bulgaricus Chewable Tablet PO DAILY [facility] Losartan Potassium 50 mg 03/06/25 09:00 Losartan Potassium 50 Mg Tablet PO DAILY [facility] Metoprolol Succinate 25 mg 03/06/25 09:00 Metoprolol Succinate Ext Rel 25 Mg Tabcr PO DAILY [facility] Multivitamins/Minerals 1 tablet 03/06/25 09:00 Opti-Gen Tab PO QAM [facility] Pantoprazole Sodium 40 mg 03/06/25 09:00 Pantoprazole 40 Mg Tablet PO Q12HR [facility] Perflutren Lipid Microsphere 0 ml 03/06/25 00:19 Perflutren Lipid Microspheres 1.5 Ml Vial Diluted To 10 Ml Total Volume IV PUSH 03/09/25 00:20 ONCE PRN adequate visualization Protocol Vitamin D 2,000 units 03/06/25 09:00 Cholecalciferol 1,000 Units Tablet PO DAILY ASHLEY Radiology Results: ITS Impressions Chest X-Ray 03/05/25 17:33 IMPRESSION: Bibasilar atelectasis versus pneumonia. Head CT 03/05/25 19:17 IMPRESSION: No acute intracranial findings. Labs Labs: Laboratory Results - last 24 hr 03/05/25 03/05/25 03/05/25 17:12 17:13 17:28 WBC 2.7 L RBC 2.95 L Hgb 10.4 L Hct 31.3 L MCV 106.1 H MCH 35.3 H MCHC 33.2 RDW 12.8 Plt Count 154 MPV 10.4 Immature Gran % (Auto) 0.8 H Neut % (Auto) 54.5 Lymph % (Auto) 19.9 Blanco % (Auto) 16.5 H Eos % (Auto) 7.9 H Baso % (Auto) 0.4 Lymph # (Auto) 0.53 L Blanco # (Auto) 0.4 Eos # (Auto) 0.2 Baso # (Auto) 0.0 Abs Immat Gran (auto) 0.02 Absolute Neuts (auto) 1.5 Absolute Nucleated RBC 0.000 Band Neutrophils % 0 Nucleated RBC % 0.0 Platelet Estimate Adequate Macrocytosis 1+ Schistocytes None seen PT 14.4 INR 1.1 APTT 25.9 Sodium 139 Potassium 4.2 Chloride 107 Carbon Dioxide 25 Anion Gap 7 BUN 42 H Creatinine 1.88 H Estim Creat Clear Calc 27 Estimated GFR 34 L Glucose 137 H Lactic Acid 1.5 Calcium 10.0 Magnesium 2.0 Total Bilirubin 0.6 AST 33 ALT 29 Alkaline Phosphatase 63 Troponin I < 0.012 NT-Pro-B Natriuret Pep 765 H Total Protein 6.0 L Albumin 3.8 Urine Color Yellow Urine Appearance Clear Urine pH 6.0 Ur Specific [place] 1.020 Urine Protein Trace Urine Glucose (UA) Negative Urine Ketones Trace H Ur Blood (Man) Negative Urine Nitrate Negative Urine Bilirubin Negative Urine Urobilinogen 0.2 Leukocyte Esterase Rfl Negative Urine RBC 0-2 Urine WBC 0-5 Ur Squamous Epith Cells None seen Urine Bacteria None seen Urine Casts 3-5 Influenza A (RT-PCR) Influenza B (RT-PCR) RSV (RT-PCR) SARS-CoV-2 RNA (RT-PCR) 03/05/25 03/06/25 18:18 04:21 WBC RBC Hgb Hct MCV MCH MCHC RDW Plt Count MPV Immature Gran % (Auto) Neut % (Auto) Lymph % (Auto) Blanco % (Auto) Eos % (Auto) Baso % (Auto) Lymph # (Auto) Blanco # (Auto) Eos # (Auto) Baso # (Auto) Abs Immat Gran (auto) Absolute Neuts (auto) Absolute Nucleated RBC Band Neutrophils % Nucleated RBC % Platelet Estimate Macrocytosis Schistocytes PT INR APTT Sodium 139 Potassium 3.9 Chloride 110 H Carbon Dioxide 24 Anion Gap 5 BUN 39 H Creatinine 1.68 H Estim Creat Clear Calc 30 Estimated GFR 39 L Glucose 102 Lactic Acid Calcium 9.8 Magnesium 1.9 Total Bilirubin AST ALT Alkaline Phosphatase Troponin I NT-Pro-B Natriuret Pep Total Protein Albumin Urine Color Urine Appearance Urine pH Ur Specific [place] Urine Protein Urine Glucose (UA) Urine Ketones Ur Blood (Man) Urine Nitrate Urine Bilirubin Urine Urobilinogen Leukocyte Esterase Rfl Urine RBC Urine WBC Ur Squamous Epith Cells Urine Bacteria Urine Casts Influenza A (RT-PCR) Negative Influenza B (RT-PCR) Negative RSV (RT-PCR) Negative SARS-CoV-2 RNA (RT-PCR) Negative Quality VTE Prophylaxis VTE prophylaxis: mechanical ordered (SCDs)
[2025-03-06 07:40] LABS: Hematocrit 28.7 % (42.0-52.0); Hemoglobin 9.5 g/dL (14.0-18.0); Mean Corpuscular HGB Conc 33.1 g/dl (32-36); Mean Corpuscular Hemoglobin 35.1 pg (26-34); Mean Corpuscular Volume 105.9 fl (80-100); Mean Platelet Volume 10.9 fl (7.4-10.4); Platelet Count Result 157 k/mm3 (150-375); Red Blood Count 2.71 M/mm3 (4.6-6.20); Red Cell Distribution Width 12.9 % (11.5-14.5); White Blood Count 2.8 K/mm3 (4.5-10.0)
[2025-03-06] MEDS: CHOLECALCIFEROL 1,000 UNITS TABLET 2000 UNITS PO (09:01)
[2025-03-06] MEDS: OPTI-GEN TAB 1 TABLET PO (09:01)
[2025-03-06] MEDS: ASPIRIN 81 MG ENTERIC TABLET PO (09:01)
[2025-03-06] MEDS: ACYCLOVIR 400 MG TABLET PO ×2 (09:01→21:00)
[2025-03-06] MEDS: METOPROLOL SUCCINATE EXT REL 25 MG TABCR PO (09:01)
[2025-03-06] MEDS: LOSARTAN POTASSIUM 50 MG TABLET PO (09:01)
[2025-03-06] MEDS: ACIDOPHILUS/BULGARICUS CHEWABLE TABLET 1 TABLET PO (09:01)
[2025-03-06] MEDS: PANTOPRAZOLE 40 MG TABLET PO ×2 (09:01→21:01)
[2025-03-06] MEDS: ISOSORBIDE MONONITRATE 30 MG TAB.ER.24H PO (09:01)
[2025-03-06] MEDS: CALCIUM CITRATE 315 MG/VITAMIN D 6.25 MCG (250 UNITS) TAB 1 TABLET PO (09:01)
[2025-03-06 11:42] LABS: Iron 52 ug/dL (49-181)
[2025-03-06 11:52] LABS: Percent Iron Saturation 22 % (20-50)
[2025-03-06] MEDS: ATORVASTATIN 40 MG TABLET PO (21:01)
[2025-03-07] VITALS (10 sets, daily range): BP systolic 111–165; BP diastolic 54–68; PULSE 61–82; RESP 16–20; TEMP 36.1–36.7; O2SAT 93–96
--- NOTE | 2025-03-07 | ECHO_ITS ---
Patient Info Name: Reid Serna Age: 85 years : 1940 Gender: Male Ht: 70 in Wt: 176 lbs BSA: 1.99 m2 HR: 75 bpm BP: 165 / 68 mmHg Technical Quality: Good Exam Date: 03/07/2025 9:44 AM Patient Status: I Admit Date: 03/07/2025 Exam Type: CA echo doppler color flow Complete two-dimensional, color flow and Doppler transthoracic echocardiogram is performed. Staff Referring Physician: David Farooq Director Of Market Analysis: Demetria Hunter Attending Provider: Sarahi Lambert MD Summary 1. Complete two-dimensional, color flow and Doppler transthoracic echocardiogram is performed. 2. There is normal biventricular size and systolic function. 3. There are no significant valvular abnormalities. Left Ventricle The left ventricle is normal in size and systolic function. The left ventricular ejection fraction is visually estimated to be 65-70%. Right Ventricle The right ventricle is normal in size and systolic function. Left Atria The left atrium is normal size. Right Atria The right atrium is normal size. Atrial Septum The atrial septum is intact by color Doppler. Aortic Valve The aortic valve is trileaflet and opens well. There is no aortic regurgitation. Pulmonic Valve The pulmonic valve is not well visualized. There is mild to moderate pulmonic valve regurgitation. Mitral Valve The mitral valve leaflets are sclerotic but opens well. There is mitral annular calcification. There is trace mitral regurgitation. Tricuspid Valve The tricuspid valve is grossly normal. There is trace tricuspid regurgitation. There is mild pulmonary hypertension. The PASP is calculated to be 41 mm Hg. Pericardium/Pleural Pericardium is normal in appearance with no evidence for significant pericardial effusion. Inferior Vena Cava Normal inferior vena cava with >50% collapse upon inspiration consistent with normal right atrial pressure, 3 mmHg. Aorta The aortic root at the level of sinus of Valsalva measures 3.7 cm in diameter. Left Ventricular Outflow Tract Name Value Normal LVOT 2D LVOT Diameter 2.2 cm LVOT Doppler LVOT Peak Velocity 93 cm/s LVOT Peak Gradient 3 mmHg LVOT Mean Gradient 2 mmHg LVOT VTI 19 cm LVOT VTI/AV VTI Ratio 0.7 LVOT Stroke Volume 74 ml LVOT CO 15.0 l/min LVOT CI 7.5 l/min/m2 Pulmonic Valve Name Value Normal PV Doppler PV Peak Velocity 96 cm/s PV Peak Gradient 4 mmHg Mitral Valve Name Value Normal MV Diastolic Function MV E Peak Velocity 72 cm/s MV A Peak Velocity 96 cm/s MV E/A 0.7 MV Decel Time (PW) 267 ms MV Annular TDI MV E/e' (Septal) 10.4 MV E/e' (Lateral) 7.7 MV E/e' (Average) 9.1 Tricuspid Valve Name Value Normal TV Regurgitation Doppler TR Peak Velocity 307 cm/s TR Peak Gradient 32 mmHg Estimated PAP/RSVP RA Pressure 3 mmHg <=5 PA Systolic Pressure 41 mmHg <36 RV Systolic Pressure 41 mmHg <36 TV Annular TDI TV Lateral Kerrie s' Velocity 13.9 cm/s >=9.5 Aorta Name Value Normal Ascending Aorta Ao Root Diameter (MM) 3.7 cm Ao Root Diam Index (MM) 1.9 cm/m2 Aortic Valve Name Value Normal AV Doppler AV Peak Velocity 108 cm/s AV Peak Gradient 5 mmHg AV Mean Gradient 3 mmHg AV VTI 26 cm AV Area (Cont Eq VTI) 2.9 cm2 >=3.0 AV Area (Cont Eq Terry) 3.3 cm2 AV DI (Terry) 0.86 AV Regurgitation 2D LVOT Area 3.8 cm2 Ventricles Name Value Normal LV Dimensions 2D/MM IVS Diastolic Thickness (2D) 1.2 cm 0.6-1.0 LVID Diastole (2D) 4.3 cm 4.2-5.8 LVIW Diastolic Thickness (2D) 0.9 cm 0.6-1.0 LVID Systole (2D) 2.4 cm 2.5-4.0 LVOT Diameter 2.2 cm LV Mass (2D Cubed) 158.29 g 88.00-224.00 LV Mass Index (2D Cubed) 79 g/m2 49-115 Relative Wall Thickness (2D) 0.44 <=0.42 LV Fractional Shortening/Ejection Fraction 2D/MM LV Fractional Shortening (2D) 43 % 25-43 LV EF (2D Teichholz) 75 % LV Diastolic Volume (4C MOD) 83 ml LV EF (4C MOD) 64 % LV Diastolic Volume (2C MOD) 89 ml LV EF (2C MOD) 72 % LV Diastolic Volume (BP MOD) 87 ml 62-150 LV Diastolic Volume Index (BP MOD) 43 ml/m2 34-74 LV Systolic Volume (BP MOD) 27 ml 21-61 LV Systolic Volume Index (BP MOD) 14 ml/m2 11-31 LV EF (BP MOD) 69 % 52-72 LV Diastolic Length (4C) 7.6 cm LV Systolic Length (4C) 6.5 cm LV Stroke Volume (4C MOD) 53 ml RV Dimensions 2D/MM RVID Diastole (2D) 4.2 cm 2.1-3.5 Atria Name Value Normal LA Dimensions LA Dimension (MM) 3.6 cm 3.0-4.0 LA Volume (4C A-L) 49 ml LA Volume (BP A-L) 48 ml RA Dimensions RA Systolic Major Athena Length (4C) 5.4 cm 2.1-2.7 RA Area (4C) 15.1 cm2 <=18.0 Report Signatures
--- NOTE | 2025-03-07 07:10 | P.PNIM_ITS ---
Progress Note: A&P Assessment and Plan (1) Syncope and collapse: Code(s): R55 - Syncope and collapse Status: Acute Assessment and Plan: Recently started on medication to decrease his testosterone approximately 6 months ago, due to underlying prostate cancer, but this was stopped as he has been experiencing hot flashes, exercise intolerance, and exertional dizziness/dyspnea. He states that the symptoms have been becoming less frequent however he believes he over exerted himself yesterday helping his move around things in the house. States he was walking around and had a near syncopal episode, sat down on a chair to take his blood pressure than a few minutes later completely passed out. Reports hitting his head on the ground during the 1st episode, but did not strike his head when he had a full syncopal episode according to him/his . * Physical exam: No lower extremity swelling, adventitious lung sounds, heart murmurs, or neurological findings * Head CT: No acute intracranial findings. * Chest XR: Bibasilar atelectasis versus pneumonia. 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30 - Chronic kidney disease, stage 3 unspecified Status: Acute Assessment and Plan: -Creatinine: 1.68, GFR: 39, BUN: 39 (In May 2023: Cr 1.7, BUN 38) -IV Fluids: NS 100ml/hr -Trend renal function -trend electrolytes, correct as needed -03/07: Cr 1.69, BUN 30 (4) Essential hypertension: Code(s): I10 - Essential (primary) hypertension Status: Acute Assessment and Plan: Patient's blood pressure was reviewed on 03/06/2025 Blood pressure remains well controlled. Chronic, continue home medications 111/54 Subjective Date/time seen: 03/07/25 07:10 Interval history: 85-year-old male with a past medical history of CAD, prostate cancer, renal cell carcinoma, CKD stage 3, HTN and GERD presented to ER via EMS due to multiple near syncopal episodes today. 03/07/2025 Patient sitting comfortably in bed at time of examination. Denies any chest pain, SOB, n/v, abdominal pain, dizziness or syncopal episodes. Still pending cardio consult and echo at this time, but pt has been able to work with PT/OT without any difficulty or dizziness. Pts syncopal episode likely component of medication side effect and dehydration, but we are still planning for cardiac rule out. Review of Systems Review of Systems: 12 systems were reviewed with pertinent positives and negatives per HPI. Except as documented in the HPI, all other systems were reviewed and are negative. Exam Narrative: Weight 80 kg BMI 25.3 Const: Other: No acute distress, well-developed well-nourished, appears stated age HENMT: Other: Upper dentures in place, mucous membranes are moist, no oral pharyngeal erythema Eyes: Other: Positive conjunctival pallor, no scleral icterus, left lens implant noted, pupils are equal and reactive Neck: Other: No JVD, no lymphadenopathy Resp: Other: Clear to auscultation bilaterally, no increased work of breathing Cardio: Other: Regular rate, regular rhythm, 2+ bilateral radial pedal pulses, no murmur GI: Other: Soft, nontender, nondistended, positive bowel sounds : Other: Deferred Skin: Other: No large areas of bruising, petechiae or rash Neuro: Other: Alert oriented x4, speech is clear, no facial asymmetry, intact sensation, no localizing neurologic deficits noted during the course of conversation Extrem: Other: No clubbing, cyanosis or edema, scarring to the left elbow from prior ORIF with muscle wasting and decreased mobility of forearm that is chronic Psych: Other: Appropriate mood and affect, pleasant and cooperative, judgment and insight intact Objective Data Vital Signs Vital Signs: Vital Signs - 24 hr 03/06/25 08:00 03/06/25 08:00 03/06/25 09:01 Temperature Pulse Rate 70 72 Respiratory Rate Blood Pressure Pulse Oximetry Oxygen Delivery Room Air Fraction of Inspired Oxygen 03/06/25 12:00 03/06/25 15:07 03/06/25 16:00 Temperature 97.5 F L Pulse Rate 72 69 68 Respiratory Rate 16 Blood Pressure 123/53 L Pulse Oximetry 94 Oxygen Delivery Fraction of Inspired Oxygen 03/06/25 19:30 03/06/25 20:01 03/06/25 20:14 Temperature 97.4 F L Pulse Rate 70 70 Respiratory Rate 16 Blood Pressure 144/68 H Pulse Oximetry 96 Oxygen Delivery Room Air Fraction of Inspired Oxygen 03/06/25 20:43 03/07/25 00:03 03/07/25 04:01 Temperature Pulse Rate 63 61 Respiratory Rate Blood Pressure Pulse Oximetry 96 Oxygen Delivery Room Air Fraction of Inspired Oxygen 21 03/07/25 05:41 Temperature 97.9 F Pulse Rate 70 Respiratory Rate 18 Blood Pressure 165/68 H Pulse Oximetry 94 Oxygen Delivery Fraction of Inspired Oxygen Intake/Output Intake/Output: Intake & Output 03/04/25 03/05/25 03/06/25 03/07/25 23:59 23:59 23:59 23:59 Intake Total 1999 2360 300 Output Total 1550 Balance 1999 810 300 Meds/Results Medications: Active Medications Generic Name Dose Route Start Last Admin Trade Name Freq PRN Reason Stop Dose Admin Acetaminophen 650 mg 03/06/25 00:24 03/06/25 21:01 Acetaminophen 325 Mg Tablet PO 650 mg Q4H PRN Administration Mild Pain (1-3) or Fever Acyclovir 400 mg 03/06/25 09:00 03/06/25 21:00 Acyclovir 400 Mg Tablet PO 400 mg Q12HR ASHLEY Administration Alfuzosin HCl 10 mg 03/06/25 09:00 03/06/25 09:01 Alfuzosin 10 Mg Er Tablet PO 10 mg DAILY ASHLEY Administration Aspirin 81 mg 03/06/25 09:00 03/06/25 09:01 Aspirin 81 Mg Enteric Tablet PO 81 mg DAILY ASHLEY Administration Atorvastatin Calcium 40 mg 03/06/25 21:00 03/06/25 21:01 Atorvastatin 40 Mg Tablet PO 40 mg QHS ASHLEY Administration Benzocaine 1 lozenge 03/06/25 14:30 Benzocaine/Menthol (*Bkc) 18 Ea Lozenge PO PRN PRN Sore Throat Calcium Citrate 1 tablet 03/06/25 09:00 03/06/25 09:01 Calcium Citrate 315 Mg/Vitamin D 6.25 Mcg (250 Units) Tab PO 1 tablet DAILY ASHLEY Administration Isosorbide Mononitrate 30 mg 03/06/25 09:00 03/06/25 09:01 Isosorbide Mononitrate 30 Mg Tab.Er.24h PO 30 mg DAILY ASHLEY Administration Lactobacillus Acidophilus 1 tablet 03/06/25 09:00 03/06/25 09:01 Acidophilus/Bulgaricus Chewable Tablet PO 1 tablet DAILY ASHLEY Administration Losartan Potassium 50 mg 03/06/25 09:00 03/06/25 09:01 Losartan Potassium 50 Mg Tablet PO 50 mg DAILY ASHLEY Administration Metoprolol Succinate 25 mg 03/06/25 09:00 03/06/25 09:01 Metoprolol Succinate Ext Rel 25 Mg Tabcr PO 25 mg DAILY ASHLEY Administration Multivitamins/Minerals 1 tablet 03/06/25 09:00 03/06/25 09:01 Opti-Gen Tab PO 1 tablet QAM ASHLEY Administration Pantoprazole Sodium 40 mg 03/06/25 09:00 03/06/25 21:01 Pantoprazole 40 Mg Tablet PO 40 mg Q12HR ASHLEY Administration Perflutren Lipid Microsphere 0 ml 03/06/25 00:19 Perflutren Lipid Microspheres 1.5 Ml Vial Diluted To 10 Ml Total Volume IV PUSH 03/09/25 00:20 ONCE PRN adequate visualization Protocol Vitamin D 2,000 units 03/06/25 09:00 03/06/25 09:01 Cholecalciferol 1,000 Units Tablet PO 2,000 units DAILY ASHLEY Administration Radiology Results: ITS Impressions Chest X-Ray 03/05/25 17:33 IMPRESSION: Bibasilar atelectasis versus pneumonia. Head CT 03/05/25 19:17 IMPRESSION: No acute intracranial findings. Ankle X-Ray 03/06/25 13:16 IMPRESSION: Findings suggesting prior fracture deformity within the distal shaft of the right fibula for which clinical correlation is needed. No acute fracture deformity is identified. Labs Labs: Laboratory Results - last 24 hr 03/06/25 03/06/25 04:21 04:21 WBC 2.8 L RBC 2.71 L Hgb 9.5 L Hct 28.7 L MCV 105.9 H MCH 35.1 H MCHC 33.1 RDW 12.9 Plt Count 157 MPV 10.9 H Iron 52 TIBC 232 L % Saturation 22 Ferritin 170.00 Cancelled Quality VTE Prophylaxis VTE prophylaxis: mechanical ordered (SCDs)
[2025-03-07 07:54] LABS: Basophils Percent Auto 0.7 % (0.2-1.2); Eosinophils Absolute Auto 0.5 K/mm3 (0-0.3); Eosinophils Percent Auto 15.3 % (0-4.4); Hematocrit 30.8 % (42.0-52.0); Hemoglobin 10.3 g/dL (14.0-18.0); Immature Granulocyte Absolute 0.04 K/mm3 (0.00-0.031); Immature Granulocyte Percent A 1.3 % (0-0.5); Lymphocytes Absolute Auto 0.43 K/mm3 (0.9-3.2); Lymphocytes Percent Auto 14.3 % (18.3-44.2); Mean Corpuscular HGB Conc 33.4 g/dl (32-36); Mean Corpuscular Hemoglobin 35.2 pg (26-34); Mean Corpuscular Volume 105.1 fl (80-100); Mean Platelet Volume 10.4 fl (7.4-10.4); Monocytes Absolute Auto 0.5 K/mm3 (0.1-0.6); Monocytes Percent Auto 16.7 % (2.6-8.5); Neutrophils Absolute Auto 1.6 K/mm3 (1.3-6.7); Neutrophils Percent Auto 51.7 % (45.5-73.1); Platelet Count Result 146 k/mm3 (150-375); Red Blood Count 2.93 M/mm3 (4.6-6.20); Red Cell Distribution Width 12.9 % (11.5-14.5)
[2025-03-07 08:09] LABS: Alanine Aminotransferase 21 U/L (6-50); Albumin Level 3.5 g/dL (3.5-5.1); Alkaline Phosphatase 63 U/L (38-126); Anion Gap 5 mmol/L (4-12); Aspartate Amino Transferase 24 U/L (17-59); Bilirubin,Total 0.6 mg/dL (0.2-1.3); Blood Urea Nitrogen 30 mg/dL (9-20); Calcium 9.7 mg/dL (8.4-10.2); Carbon Dioxide 26 mmol/L (22-30); Chloride 109 mmol/L (98-107); Estimated CRCL calculation 30 ml/min; Estimated Glomerular Filt Rate 39; Glucose 109 mg/dL (65-110); Potassium 4.2 mmol/L (3.4-5.0); Sodium 140 mmol/L (137-145)
[2025-03-07 08:47] LABS: Macrocytosis 1+ (NORMAL); Platelet Estimate Slightly Decreased (Adequate); Schistocytes None Seen
[2025-03-07] MEDS: ACETAMINOPHEN 325 MG TABLET 650 MG PO ×2 (09:15→20:20)
[2025-03-07] MEDS: PANTOPRAZOLE 40 MG TABLET PO ×2 (09:16→20:20)
[2025-03-07] MEDS: CALCIUM CITRATE 315 MG/VITAMIN D 6.25 MCG (250 UNITS) TAB 1 TABLET PO (09:16)
[2025-03-07] MEDS: ACIDOPHILUS/BULGARICUS CHEWABLE TABLET 1 TABLET PO (09:16)
[2025-03-07] MEDS: METOPROLOL SUCCINATE EXT REL 25 MG TABCR PO (09:16)
[2025-03-07] MEDS: ISOSORBIDE MONONITRATE 30 MG TAB.ER.24H PO (09:16)
[2025-03-07] MEDS: OPTI-GEN TAB 1 TABLET PO (09:16)
[2025-03-07] MEDS: CHOLECALCIFEROL 1,000 UNITS TABLET 2000 UNITS PO (09:16)
[2025-03-07] MEDS: ACYCLOVIR 400 MG TABLET PO ×2 (09:16→20:20)
[2025-03-07] MEDS: LOSARTAN POTASSIUM 50 MG TABLET PO (09:16)
[2025-03-07] MEDS: ASPIRIN 81 MG ENTERIC TABLET PO (09:16)
--- NOTE | 2025-03-07 18:49 | P.CONCA_ITS ---
Assessment and Plan Assessment and plan (1) Syncope and collapse: Code(s): R55 - Syncope and collapse Status: Acute (2) Coronary artery disease: Code(s): I25.10 - Atherosclerotic heart disease of [place] coronary artery without angina pectoris Status: Acute (3) Hyperlipidemia: Code(s): E78.5 - Hyperlipidemia, unspecified Status: Acute Plan 85-year-old man with CAD status post PCI, chronic kidney disease stage 3, prostate cancer now on hormone therapy, and hypertension presented with syncope Syncope -unlikely cardiac in nature -we discussed discontinue metoprolol especially there is no further indication for it -patient will follow-up with his stock layer to discuss further CAD status post PCI (2012) -continue aspirin 81 mg p.o. daily Hyperlipidemia -continue atorvastatin 40 mg every evening No additional cardiac workup warranted during this admission. Patient follow-up with his outpatient stock layer. Please call with additional questions History of Present Illness History of Present Illness Consult date/time: 03/07/25 18:49 Requesting physician: David Farooq PA-C Reason For Visit: Head injury, Syncope Narrative: 85-year-old man with CAD status post PCI, chronic kidney disease stage 3, prostate cancer now on hormone therapy, and hypertension presented with syncopal event. Since treatment for his prostate cancer via formal jesse in October he has been feeling significantly fatigued. Yesterday he was bringing his dishes to the kitchen after dinner when he suddenly felt significantly lightheaded and felt like he was going to pass out. His came to help him and he lost consciousness briefly for a few seconds. He stood back up and as they were discussing, he started to feel lightheaded and quickly lost consciousness for few seconds again. At this point he decided to lay on the floor until EMS arrival. He denies any significant chest discomfort with physical activity. He does endorse some exertional shortness of breath as well as exertional fatigue. No chest pain or chest discomfort with the episodes of syncope. Denies orthopnea. Review of Systems 2 Cardiovascular: Cardiovascular: Reports as per HPI Respiratory: Respiratory: Reports as per HPI REPLACED BY [facility] Past Medical History Medical History (Updated 03/07/25 @ 18:55 by John Sidhu MD) Peripheral neuropathy GERD (gastroesophageal reflux disease) CKD (chronic kidney disease) stage 3, GFR 30-59 ml/min Essential hypertension Obstructive sleep apnea treated with uvulectomy and septoplasty Renal cell carcinoma (~2022) Prostate cancer (~2023) Last radiation treatment November 2024 Coronary artery disease Hyperlipidemia BPH (benign prostatic hyperplasia) Surgical History Surgical History (Updated 03/06/25 @ 07:17 by Huyen De La Torre DO) Status post open reduction with internal fixation of fracture Left elbow fracture when he was a child History of nasal septoplasty History of uvulectomy History of tonsillectomy and adenoidectomy History of percutaneous coronary intervention (04/2013) Family History Family History (Updated 03/05/25 @ 22:05 by Huyen De La Torre DO) Mother Diabetes mellitus Lung cancer Heart disease Father Heart disease Social History Social History (Updated 03/06/25 @ 07:14 by Huyen De La Torre DO) Social History: The patient lives in [place] with his of over 60 years. They raised 2 daughters and a son. 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 He used to smoke a pack of cigarettes per day but quit smoking over 40 years ago. He may drink 1 or 2 alcoholic beverages once or twice a month. Code status: Full code Healthcare power of defense attorney: Kayla () Smoking packs per day: 1 Smoking cigarettes per day: 20.0 Years smoked: 25 Smoking pack-years: 25.00 Smoking status: Former smoker Second hand tobacco smoke exposure: No Alcohol intake: current Drinks per week: 1 Substance use: never Substance use type: does not use Do You Feel Safe in your Home?: Yes Lack of Transportation: No Lack of Food: Never True Current Housing: I Have Housing Concerned About Future Housing: No Difficulty Paying Gas/Electric Bills: No Difficulty Paying for Meds: No Currently Unemployed: No Education: High School Diploma/GED Difficulty w/ Childcare or Family Care: No Spiritual care concerns: No Meds Home Medications and Allergies Home Medications ?Medication ?Instructions ?Recorded ?Confirmed ?Type Lactobacillus acidophilus 10 10,000 mmu cells PO DAILY 03/05/25 03/05/25 History billion cell capsule (NewFlora) acetaminophen 500 mg capsule 1,000 mg PO Q4H PRN fever or pain 03/05/25 03/05/25 History acyclovir 400 mg tablet 400 mg PO Q12H 03/05/25 03/05/25 History alfuzosin 10 mg tablet,extended 10 mg PO DAILY 03/05/25 03/05/25 History release 24 hr aspirin 81 mg tablet,delayed 81 mg PO DAILY 03/05/25 03/05/25 History release (Adult Aspirin Regimen) atorvastatin 40 mg tablet 40 mg PO QPM 03/05/25 03/05/25 History calcium citrate 200 mg PO .q12hr 03/05/25 03/05/25 History cetirizine 10 mg tablet (24Hour 10 mg PO DAILY PRN allergy symptoms 03/05/25 03/05/25 History Allergy) cholecalciferol (vitamin D3) 50 2,000 unit PO DAILY 03/05/25 03/05/25 History mcg (2,000 unit) capsule (D3-1999) isosorbide mononitrate 30 mg 30 mg PO DAILY 03/05/25 03/05/25 History tablet,extended release 24 hr losartan 50 mg tablet 50 mg PO DAILY 03/05/25 03/05/25 History metoprolol succinate 25 mg 25 mg PO DAILY 03/05/25 03/05/25 History tablet,extended release 24 hr mv-mn-folic 200 mcg-vit K 15 1 cap PO .q12 03/05/25 03/05/25 History mcg-lutein 5 mg-zeaxanthin 1 mg capsule (PreserVision AREDS 2 Plus Multivit) pantoprazole 40 mg tablet,delayed 40 mg PO Q12H 03/05/25 03/05/25 History release Allergies Allergy/AdvReac Type Severity Reaction Status Date / Time No Known Allergies Allergy Unknown Verified 03/05/25 21:43 Vital Signs Vital Signs - 24 hr 03/06/25 19:30 03/06/25 20:01 03/06/25 20:14 Temperature 36.3 C L Pulse Rate 70 70 Respiratory Rate 16 Blood Pressure 144/68 H Pulse Oximetry 96 Oxygen Delivery Room Air Fraction of Inspired Oxygen 03/06/25 20:43 03/07/25 00:03 03/07/25 04:01 Temperature Pulse Rate 63 61 Respiratory Rate Blood Pressure Pulse Oximetry 96 Oxygen Delivery Room Air Fraction of Inspired Oxygen 21 03/07/25 05:41 03/07/25 08:00 03/07/25 08:00 Temperature 36.6 C Pulse Rate 70 78 Respiratory Rate 18 Blood Pressure 165/68 H Pulse Oximetry 94 Oxygen Delivery Room Air Fraction of Inspired Oxygen 03/07/25 08:23 03/07/25 09:16 03/07/25 12:00 Temperature Pulse Rate 82 77 Respiratory Rate Blood Pressure Pulse Oximetry Oxygen Delivery Room Air Fraction of Inspired Oxygen 03/07/25 13:21 Temperature 36.1 C L Pulse Rate 74 Respiratory Rate 18 Blood Pressure 111/54 L Pulse Oximetry 96 Oxygen Delivery Fraction of Inspired Oxygen Exam 2 Const: General: comfortable HENMT: Mouth: Yes moist mucous membranes Eyes: EOM: EOMs intact bilaterally Neck: Neck: no JVD Resp: Effort & Inspection: normal respiratory effort Auscultation: rales Other: Basilar rales bilaterally Cardio: Rate: regular rate Rhythm: regular rhythm Extrem: General: no pedal edema Results Labs and Meds 03/07/25 07:07 03/07/25 07:07 Lab results: Cardiac Enzymes 03/07/25 Range/Units 07:07 AST 24 (17-59) U/L CBC 03/07/25 Range/Units 07:07 WBC 3.0 L (4.5-10.0) K/mm3 RBC 2.93 L (4.6-6.20) M/mm3 Hgb 10.3 L (14.0-18.0) g/dL Hct 30.8 L (42.0-52.0) % Plt Count 146 L (150-375) k/mm3 Lymph # (Auto) 0.43 L (0.9-3.2) K/mm3 [place] # (Auto) 0.5 (0.1-0.6) K/mm3 Eos # (Auto) 0.5 H (0-0.3) K/mm3 Baso # (Auto) 0.0 (0.0-0.1) K/mm3 Comprehensive Metabolic Panel 03/07/25 Range/Units 07:07 Sodium 140 (137-145) mmol/L Potassium 4.2 (3.4-5.0) mmol/L Chloride 109 H (98-107) mmol/L Carbon Dioxide 26 (22-30) mmol/L BUN 30 H (9-20) mg/dL Creatinine 1.69 H (0.7-1.3) mg/dL Glucose 109 (65-110) mg/dL Calcium 9.7 (8.4-10.2) mg/dL AST 24 (17-59) U/L ALT 21 (6-50) U/L Alkaline Phosphatase 63 (38-126) U/L Total Protein 6.0 L (6.3-8.2) g/dL Albumin 3.5 (3.5-5.1) g/dL Intake and Output 03/07/25 03/07/25 03/07/25 07:59 15:59 23:59 Intake Total 300 480 240 Balance 300 480 240 Intake: Oral 300 480 240 Other: # Unmeasured Voids 1 1 Number of Bowel Movements Today 1 2 Patient Weight 03/07/25 23:59 Weight 81.2 kg
[2025-03-07] MEDS: ATORVASTATIN 40 MG TABLET PO (20:20)
[2025-03-08 00:03] VITALS: PULSE 60
[2025-03-08 04:00] VITALS: PULSE 60
[2025-03-08 04:42] VITALS: BP 153/68; PULSE 65; RESP 16; TEMP 36.6; O2SAT 95
[2025-03-08 05:55] LABS: Basophils Percent Auto 0.8 % (0.2-1.2); Eosinophils Absolute Auto 0.4 K/mm3 (0-0.3); Eosinophils Percent Auto 17.6 % (0-4.4); Hematocrit 31.6 % (42.0-52.0); Hemoglobin 10.4 g/dL (14.0-18.0); Immature Granulocyte Absolute 0.08 K/mm3 (0.00-0.031); Immature Granulocyte Percent A 3.3 % (0-0.5); Lymphocytes Absolute Auto 0.42 K/mm3 (0.9-3.2); Lymphocytes Percent Auto 17.1 % (18.3-44.2); Mean Corpuscular HGB Conc 32.9 g/dl (32-36); Mean Corpuscular Hemoglobin 34.6 pg (26-34); Mean Platelet Volume 10.7 fl (7.4-10.4); Monocytes Absolute Auto 0.5 K/mm3 (0.1-0.6); Monocytes Percent Auto 18.4 % (2.6-8.5); Neutrophils Absolute Auto 1.1 K/mm3 (1.3-6.7); Neutrophils Percent Auto 42.8 % (45.5-73.1); Platelet Count Result 142 k/mm3 (150-375); Red Blood Count 3.01 M/mm3 (4.6-6.20); Red Cell Distribution Width 12.7 % (11.5-14.5); White Blood Count 2.5 K/mm3 (4.5-10.0)
[2025-03-08 06:13] LABS: Alanine Aminotransferase 21 U/L (6-50); Albumin Level 3.4 g/dL (3.5-5.1); Alkaline Phosphatase 61 U/L (38-126); Anion Gap 6 mmol/L (4-12); Aspartate Amino Transferase 28 U/L (17-59); Bilirubin,Total 0.8 mg/dL (0.2-1.3); Blood Urea Nitrogen 27 mg/dL (9-20); Carbon Dioxide 25 mmol/L (22-30); Chloride 107 mmol/L (98-107); Estimated CRCL calculation 33 ml/min; Estimated Glomerular Filt Rate 44; Glucose 100 mg/dL (65-110); Sodium 138 mmol/L (137-145)
[2025-03-08 08:00] VITALS: PULSE 76
[2025-03-08] MEDS: OPTI-GEN TAB 1 TABLET PO (08:46)
[2025-03-08] MEDS: ASPIRIN 81 MG ENTERIC TABLET PO (08:46)
[2025-03-08] MEDS: PANTOPRAZOLE 40 MG TABLET PO (08:46)
[2025-03-08] MEDS: LOSARTAN POTASSIUM 50 MG TABLET PO (08:46)
[2025-03-08] MEDS: ACIDOPHILUS/BULGARICUS CHEWABLE TABLET 1 TABLET PO (08:46)
[2025-03-08 08:47] VITALS: PULSE 65
[2025-03-08] MEDS: ISOSORBIDE MONONITRATE 30 MG TAB.ER.24H PO (08:47)
[2025-03-08] MEDS: METOPROLOL SUCCINATE EXT REL 25 MG TABCR PO (08:47)
[2025-03-08] MEDS: ACYCLOVIR 400 MG TABLET PO (08:47)
[2025-03-08] MEDS: CHOLECALCIFEROL 1,000 UNITS TABLET 2000 UNITS PO (08:47)
[2025-03-08] MEDS: CALCIUM CITRATE 315 MG/VITAMIN D 6.25 MCG (250 UNITS) TAB 1 TABLET PO (08:47)
[2025-03-08] MEDS: ACETAMINOPHEN 325 MG TABLET 650 MG PO (08:50)
--- NOTE | 2025-03-08 08:55 | PM.DS ---
DS: Admitting Diagnosis Discharge Date 03/08/2025 Admitting Diagnosis Syncope and collapse Dehydration DS: Discharge Diagnosis Discharge Diagnosis (1) Syncope and collapse: Code(s): R55 - Syncope and collapse Status: Acute (2) Head injury: Qualifiers: Encounter type: subsequent encounter Qualified Code(s): S09.90XD - Unspecified injury of head, subsequent encounter Code(s): S09.90XA - Unspecified injury of head, initial encounter Status: Acute (3) CKD (chronic kidney disease) stage 3, GFR 30-59 ml/min: Qualifiers: Chronic kidney disease stage 3 subtype: stage 3b (GFR 30-44) Qualified Code(s): N18.32 - Chronic kidney disease, stage 3b Code(s): N18.30 - Chronic kidney disease, stage 3 unspecified Status: Acute (4) Essential hypertension: Code(s): I10 - Essential (primary) hypertension Status: Acute DS: Summary Hospital Course Reason for hospitalization: Syncope and collapse Hospital Course: Pleasantly loquacious 85-year-old male with a past medical history of coronary artery disease code renal cell carcinoma, chronic kidney disease stage 3, prostate cancer, essential hypertension and GERD among other medical problems who presented to the ER via EMS due to multiple near syncopal episodes today. The patient reports that since he was given a hormone jesse for his prostate cancer in October has been generally fatigued. He completed radiation therapy for his prostate cancer in November. He reports that he has been more tired for the last couple of days because his was recently in the hospital. He had to miss his appointment for his scheduled outpatient mayes echocardiogram on the because he came to pick his up after hospital discharge. He denied having any chest pain palpitations or shortness of breath. However he thinks that his episodes reported came in were due to over exerting himself and being dehydrated. He states that he was up and walking across the room when he felt fatigued for few seconds and felt as if he may pass out. He managed to get over to was stool in sit down. While he and his were arguing over how the blood pressure cuff should be placed on his arm he started to pass out again and ended up sliding off this stool. He does not really remember the process of sliding off the stool but he does remember hitting his head. He reports a softly it is head when he landed on his butt and then slid will to his left side with his arm extended. He denies any headache or vision changes. He admits that he does not really drink enough water. He was much better about drinking larger amounts of water when he was undergoing his radiation treatments but has fallen off with that habit. He has been drinking approximately 2 cups of coffee a day as well. He denies any dysuria or hematuria. He reports that his urine output has been lower for the last couple of days. He reports chronic urinary urgency and frequency in states that if he needs to go to the bathroom he asked ago immediately. He has to wear absorbent pads ever since his prostate cancer diagnosis. He has not had any recent changes in medications. When his checked his blood pressure at home his systolic blood pressure was around 90. When EMS arrived at the home his systolic blood pressure was just below 100. By the time he arrived to the ER his blood pressure were in the 110s to 120s which is more his usual range. He received 2 L of isotonic fluids in fluid bolus in the ER. After he received IV fluids he did have a good void. He feels as if he empties his bladder completely. His orthostatic vital signs in the ER were normal. History was obtained majority of from the patient's himself. He is in extremely good historian. Information supplemented with ER physician report and review of past medical records. Cardiology was consulted regarding syncope/collapse. Echocardiogram was also ordered which showed normal biventricular size and systolic function with no significant valve abnormalities. Cardiology agrees that syncope/collapse likely not cardiac in origin and discussed with the patient regarding further metoprolol use. They also recommended continuing aspirin for CAD status post PCI and continuing atorvastatin for hyperlipidemia S report that no further cardiac workup is necessary at this time. Throughout his hospitalization, patient had a chest x-ray which showed bibasilar atelectasis versus pneumonia however given patient's clinical picture, including lack of fever, leukocytosis, subjective shortness of breath, or significant physical exam findings, pneumonia less likely as diagnosis. Head CT was obtained showed no acute intracranial findings. Right ankle pain/swelling which popped up after patient's syncopal episode. X-ray was obtained which showed no acute fracture deformity identified. Likely musculoskeletal/soft tissue swelling superficial, distal pulses are strong and patient has full range of motion of the right lower ankle. Instructed patient to keep foot elevated and ice the extremity as needed. Patient has worked with PT/OT throughout his hospitalization and is completely independent without any syncopal signs or symptoms. Patient states that he has been feeling weak since starting on Eligard for advanced prostate cancer approximately 6 months ago. He has discussed this with his oncologist and they have agreed to come off of medication, however he has been instructed that he may still have some underlying side effects. His oncologist has discussed the importance of monitoring the symptoms. Patient also reports that he does not drink lots of water, stating that he drinks 2-3 cups of coffee per day with maybe a glass of water in the evening with dinner. I have increased his oral hydration at home. I have also discussed with the patient that the symptoms that he is presenting with for this hospitalization can likely be attributed to underlying dehydration and/or medication side effect. Blood work and vital signs at or near baseline with no remarkable deficiencies. Patient is otherwise hemodynamically stable and is appropriate for discharge with close follow-up with his primary care physician and oncologist is amenable to discharge at this time. Status at Discharge Functional status at discharge: independent ambulation Overall status at discharge: patient is back to baseline Time Spent with Patient Time attestation: Total time spent providing and/or coordinating discharge services: 35 Exam Narrative: Weight 80 kg BMI 25.3 Const: Other: No acute distress, well-developed well-nourished, appears stated age HENMT: Other: Upper dentures in place, mucous membranes are moist, no oral pharyngeal erythema Eyes: Other: Positive conjunctival pallor, no scleral icterus, left lens implant noted, pupils are equal and reactive Neck: Other: No JVD, no lymphadenopathy Resp: Other: Clear to auscultation bilaterally, no increased work of breathing Cardio: Other: Regular rate, regular rhythm, 2+ bilateral radial pedal pulses, no murmur GI: Other: Soft, nontender, nondistended, positive bowel sounds : Other: Deferred Skin: Other: No large areas of bruising, petechiae or rash Neuro: Other: Alert oriented x4, speech is clear, no facial asymmetry, intact sensation, no localizing neurologic deficits noted during the course of conversation Extrem: Other: No clubbing, cyanosis or edema, scarring to the left elbow from prior ORIF with muscle wasting and decreased mobility of forearm that is chronic Psych: Other: Appropriate mood and affect, pleasant and cooperative, judgment and insight intact DS: Data Data Completed and Pending Labs on day of discharge: Labs from last 24 hours 03/08/25 05:28 WBC 2.5 L RBC 3.01 L Hgb 10.4 L Hct 31.6 L MCV 105.0 H MCH 34.6 H MCHC 32.9 RDW 12.7 Plt Count 142 L MPV 10.7 H Immature Gran % (Auto) 3.3 H Neut % (Auto) 42.8 L Lymph % (Auto) 17.1 L Mccone % (Auto) 18.4 H Eos % (Auto) 17.6 H Baso % (Auto) 0.8 Lymph # (Auto) 0.42 L [place] # (Auto) 0.5 Eos # (Auto) 0.4 H Baso # (Auto) 0.0 Abs Immat Gran (auto) 0.08 H Absolute Neuts (auto) 1.1 L Absolute Nucleated RBC 0.000 Nucleated RBC % 0.0 Sodium 138 Potassium 4.0 Chloride 107 Carbon Dioxide 25 Anion Gap 6 BUN 27 H Creatinine 1.51 H Estim Creat Clear Calc 33 Estimated GFR 44 L Glucose 100 Calcium 10.0 Total Bilirubin 0.8 AST 28 ALT 21 Alkaline Phosphatase 61 Total Protein 6.0 L Albumin 3.4 L Discharge Plan Discharge Attending physician on discharge: Sarahi Lambert Consulting providers: David Farooq; John Sidhu Discharging Clinician: David Farooq Anticipated Discharge Date/Time: 03/08/25 08:52 Patient Disposition: Home Activity: as tolerated Diet: as tolerated Discharge Instructions: Take medications as prescribed Maintain a cardiac diet, 2 g sodium Remain active and hydrated If you develop chest pain, shortness breath, fever greater than 101, nausea, or vomiting notify a clinician or come to the emergency department Follow-up with primary care provider within 1-2 weeks. Also follow up with your [employer] Operator as soon as possible. Thank you for choosing [facility] for your healthcare needs Patient Instructions: Antibiotic Form, Syncope (DC) Patient Language: [place] Stand Alone Forms: General Discharge Information Follow-up/Referrals: Zach, River [Other] Discharge Medications: Continued alfuzosin 10 mg tablet extended release 24 hr 10 mg PO DAILY atorvastatin 40 mg tablet 40 mg PO QPM isosorbide mononitrate 30 mg tablet extended release 24 hr 30 mg PO DAILY losartan 50 mg tablet 50 mg PO DAILY metoprolol succinate 25 mg tablet extended release 24 hr 25 mg PO DAILY acyclovir 400 mg tablet 400 mg PO Q12H pantoprazole 40 mg tablet,delayed release (DR/EC) 40 mg PO Q12H aspirin [Adult Aspirin Regimen] 81 mg tablet,delayed release (DR/EC) 81 mg PO DAILY PreserVision AREDS 2 Plus MV 200 mcg-15 mcg- 5 mg-1 mg capsule 1 cap PO .q12 calcium citrate 200 mg (950 mg) tablet 200 mg PO .q12hr cholecalciferol (vitamin D3) [D3-2000] 50 mcg (2,000 unit) capsule 2,000 unit PO DAILY NewFlora 10 billion cell capsule 10,000 mmu cells PO DAILY cetirizine [24Hour Allergy] 10 mg tablet 10 mg PO DAILY PRN (Reason: allergy symptoms) acetaminophen 500 mg capsule 1,000 mg PO Q4H PRN (Reason: fever or pain) Date of admission: 03/07/25 13:49 Primary Care Provider: BenitoRiver Admitting Provider: Sarahi Lambert Attending physician on admission: Sarahi Lambert Condition: Stable Quality VTE Prophylaxis VTE prophylaxis: mechanical ordered (SCDs)
--- NOTE | 2025-03-08 12:15 | PCPTNOTE ---
On 03/08/25, the student, [Abby Mauro], provided care and completed [facility] documentation on this patient. I have reviewed the student's documentation and agree with the findings.
== END 2025-03-08 11:20 | disposition home or self-care (01) | DRG 312 ==
LOC: ANHED 18:40 → ANH2MED 20:46
PROVIDERS: Internal Medicine; Admitting Provider Family Medicine; Emergency Provider Emergency Medicine; Visit Provider Physician Assistant
DX: R55 Syncope and collapse (principal); E86.0 Dehydration; I25.10 Atherosclerotic heart disease of native coronary artery without angina pectoris; I12.9 Hypertensive chronic kidney disease with stage 1 through stage 4 chronic kidney disease, or unspecified chronic kidney disease; N18.30 Chronic kidney disease, stage 3 unspecified; C61 Malignant neoplasm of prostate; K21.9 Gastro-esophageal reflux disease without esophagitis; E78.5 Hyperlipidemia, unspecified; N40.0 Benign prostatic hyperplasia without lower urinary tract symptoms; M25.571 Pain in right ankle and joints of right foot; G62.9 Polyneuropathy, unspecified; G47.33 Obstructive sleep apnea (adult) (pediatric); S09.90XA Unspecified injury of head, initial encounter; Z20.822 Contact with and (suspected) exposure to COVID-19; Z85.528 Personal history of other malignant neoplasm of kidney; Z79.82 Long term (current) use of aspirin; Z87.891 Personal history of nicotine dependence
CPT/HCPCS: 36415; 70450; 71045; 73610; 80048; 80053; 81001; 82728; 83540; 83550; 83605; 83735; 83880; 84484; 85025; 85027; 85610; 85730; 87637; 93005; 93306; 96361; 97161; 97165; 97530; 99285; A9270; G0378; J7030; J7120